=== PATIENT | female | born 1950 | race Caucasian/White ===

== ENCOUNTER 2021-01-02 09:39 | Outpatient (REF) | payer MEDICARE, OTHER, SELFPAY | END 2021-01-02 09:40 | disposition home or self-care (01) | LOC: HO.BBR 09:39 | PROVIDERS: Visit Provider Nurse Practitioner Family | DX: Z13.89 Encounter for screening for other disorder (principal) ==

== ENCOUNTER 2021-02-04 10:15 | Outpatient (REF) | payer MEDICARE, SELFPAY | END 2021-02-04 10:16 | disposition home or self-care (01) | LOC: HO.BBR 10:15 | PROVIDERS: PCP Family Medicine; Visit Provider Nurse Practitioner Family | DX: Z13.89 Encounter for screening for other disorder (principal) ==

== ENCOUNTER 2021-08-05 10:01 | Outpatient (REF) | payer MEDICARE, SELFPAY | END 2021-08-05 10:02 | disposition home or self-care (01) | LOC: HO.BBR 10:01 | PROVIDERS: Visit Provider Physician Assistant Medical | DX: Z13.89 Encounter for screening for other disorder (principal) ==

== ENCOUNTER 2021-08-21 11:03 | Outpatient (REF) | payer MEDICARE, SELFPAY | END 2021-08-21 11:04 | disposition home or self-care (01) | LOC: HO.BBR 11:03 | PROVIDERS: Visit Provider Physician Assistant Medical | DX: Z13.89 Encounter for screening for other disorder (principal) ==

== ENCOUNTER 2021-09-19 13:45 | Outpatient (REF) | payer MEDICARE, SELFPAY | END 2021-09-19 13:46 | disposition home or self-care (01) | LOC: HO.BBR 13:45 | PROVIDERS: Visit Provider Physician Assistant Medical | DX: Z13.89 Encounter for screening for other disorder (principal) ==

== ENCOUNTER 2021-10-29 10:53 | Outpatient (REF) | payer MEDICARE, SELFPAY | END 2021-10-29 10:54 | disposition home or self-care (01) | LOC: HO.BBR 10:53 | PROVIDERS: Visit Provider Physician Assistant Medical | DX: Z13.89 Encounter for screening for other disorder (principal) ==

== ENCOUNTER 2021-12-03 11:07 | Outpatient (REF) | payer MEDICARE, SELFPAY | END 2021-12-03 11:08 | disposition home or self-care (01) | LOC: HO.BBR 11:07 | PROVIDERS: Visit Provider Physician Assistant Medical | DX: Z13.89 Encounter for screening for other disorder (principal) ==

== ENCOUNTER 2022-03-26 13:06 | Outpatient (REF) | payer MEDICARE, SELFPAY | END 2022-03-26 13:07 | disposition home or self-care (01) | LOC: HO.BBR 13:06 | PROVIDERS: Visit Provider Physician Assistant Medical | DX: Z13.89 Encounter for screening for other disorder (principal) ==

== ENCOUNTER 2022-04-29 12:49 | Outpatient (REF) | payer MEDICARE, SELFPAY | END 2022-04-29 12:50 | disposition home or self-care (01) | LOC: HO.BBR 12:49 | PROVIDERS: Visit Provider Physician Assistant Medical | DX: Z13.89 Encounter for screening for other disorder (principal) ==

== ENCOUNTER 2022-05-29 11:00 | Outpatient (REF) | payer MEDICARE, SELFPAY | END 2022-05-29 11:01 | disposition home or self-care (01) | LOC: HO.BBR 11:00 | PROVIDERS: Visit Provider Physician Assistant Medical | DX: Z13.89 Encounter for screening for other disorder (principal) ==

== ENCOUNTER 2022-10-30 11:48 | Outpatient (REF) | payer MEDICARE, SELFPAY | END 2022-10-30 11:49 | disposition home or self-care (01) | LOC: HO.BBR 11:48 | PROVIDERS: Visit Provider Physician Assistant Medical | DX: Z13.89 Encounter for screening for other disorder (principal) ==

== ENCOUNTER 2022-12-04 11:12 | Outpatient (REF) | payer MEDICARE, SELFPAY | END 2022-12-04 11:13 | disposition home or self-care (01) | LOC: HO.BBR 11:12 | PROVIDERS: Visit Provider Nurse Practitioner Family | DX: Z13.89 Encounter for screening for other disorder (principal) ==

== ENCOUNTER 2023-01-08 11:00 | Outpatient (REF) | payer MEDICARE, OTHER, SELFPAY | END 2023-01-08 11:01 | disposition home or self-care (01) | LOC: HO.BBR 11:00 | PROVIDERS: Visit Provider Nurse Practitioner Family | DX: Z13.89 Encounter for screening for other disorder (principal) ==

== ENCOUNTER 2023-04-22 11:02 | Outpatient (REF) | payer MEDICARE, OTHER, SELFPAY | END 2023-04-22 11:03 | disposition home or self-care (01) | LOC: HO.BBR 11:02 | PROVIDERS: Visit Provider Nurse Practitioner Family | DX: Z13.89 Encounter for screening for other disorder (principal) ==

== ENCOUNTER 2023-06-09 10:08 | Outpatient (REF) | payer MEDICARE, OTHER, SELFPAY | END 2023-06-09 10:09 | disposition home or self-care (01) | LOC: HO.BBR 10:08 | PROVIDERS: PCP Family Medicine; Visit Provider Nurse Practitioner Family | DX: Z13.89 Encounter for screening for other disorder (principal) ==

== ENCOUNTER 2023-07-17 11:00 | Outpatient (REF) | payer MEDICARE, OTHER, SELFPAY | END 2023-07-17 11:01 | disposition home or self-care (01) | LOC: HO.BBR 11:00 | PROVIDERS: PCP Family Medicine; Visit Provider Nurse Practitioner Family | DX: Z13.89 Encounter for screening for other disorder (principal) ==

== ENCOUNTER 2024-03-29 12:14 | Outpatient (REF) | payer MEDICARE, OTHER, SELFPAY | END 2024-03-29 12:15 | disposition home or self-care (01) | LOC: HO.BBR 12:14 | PROVIDERS: PCP Nurse Practitioner Family; Visit Provider Nurse Practitioner Family | DX: Z13.89 Encounter for screening for other disorder (principal) ==

== ENCOUNTER 2024-04-26 12:03 | Outpatient (REF) | payer MEDICARE, OTHER, SELFPAY | END 2024-04-26 12:04 | disposition home or self-care (01) | LOC: HO.BBR 12:03 | PROVIDERS: PCP Nurse Practitioner Family; Visit Provider Nurse Practitioner Family | DX: Z13.89 Encounter for screening for other disorder (principal) ==

== ENCOUNTER 2024-05-24 12:31 | Outpatient (REF) | payer MEDICARE, OTHER, SELFPAY | END 2024-05-24 12:32 | disposition home or self-care (01) | LOC: HO.BBR 12:31 | PROVIDERS: PCP Nurse Practitioner Family; Visit Provider Nurse Practitioner Family | DX: Z13.89 Encounter for screening for other disorder (principal) ==

== ENCOUNTER 2024-09-01 10:54 | Outpatient (RCR) | payer MEDICARE, OTHER, SELFPAY | END 2024-09-01 12:00 | disposition home or self-care (01) | LOC: HO.PT 10:54 | PROVIDERS: PCP Nurse Practitioner Family; Visit Provider Nurse Practitioner Family | DX: N39.46 Mixed incontinence (principal); M99.05 Segmental and somatic dysfunction of pelvic region | CPT/HCPCS: 97112; 97140; 97161 ==

== ENCOUNTER 2024-09-20 14:05 | Outpatient (REF) | payer MEDICARE, OTHER, SELFPAY | END 2024-09-20 14:06 | disposition home or self-care (01) | LOC: HO.BBR 14:05 | PROVIDERS: PCP Nurse Practitioner Family; Visit Provider Nurse Practitioner Family | DX: Z13.89 Encounter for screening for other disorder (principal) ==

== ENCOUNTER 2024-11-16 13:07 | Outpatient (REF) | payer MEDICARE, OTHER, SELFPAY | END 2024-11-16 13:08 | disposition home or self-care (01) | LOC: HO.BBR 13:07 | PROVIDERS: PCP Nurse Practitioner Family; Visit Provider Nurse Practitioner Family | DX: Z13.89 Encounter for screening for other disorder (principal) ==

== ENCOUNTER 2024-12-21 10:03 | Outpatient (REF) | payer MEDICARE, OTHER, SELFPAY | END 2024-12-21 10:04 | disposition home or self-care (01) | LOC: HO.BBR 10:03 | PROVIDERS: PCP Nurse Practitioner Family; Visit Provider Nurse Practitioner Family | DX: Z13.89 Encounter for screening for other disorder (principal) ==

== ENCOUNTER 2025-04-26 13:56 | Outpatient (REF) | payer MEDICARE, OTHER, SELFPAY ==
--- OUTSIDE RECORDS SUMMARY | 2025-04-26 17:54 | XMS_ITS | Encounter Summary ---
Author Organization [facility] Address [address] [facility] [address] [place] [address] Phone Care Team Providers Care Construction Consultant Name Role Phone Hugo Titus Ha DO Unavailable Noelle Alvarado WAX PUMPER Unavailable Joelle Wilkins CARPENTER Unavailable [phone] Noelle Alvarado WAX PUMPER Primary Care Provider [phone] Kathia Quesada PA-C Unavailable Jose Cifuentes MD Unavailable SahKem carvalho DO Unavailable Paulette Fuchs DO Unavailable Hugo Titus Ha DO Unavailable oSha Louie MD Unavailable SahKem carvalho DO Unavailable Clemente Brown MD Unavailable Jaylyn Chavira CNP Primary Care Provider Kem Amaya DO Unavailable Jaylyn Chavira CNP Unavailable Encounter Details Date Type Department Care Team (Late st Contact Info) Description 08/16/2021 Procedure Pass [facility] Endoscopy Admitting Dept Virtual Department [address] [place], [place] [id number] Social History Tobacco Use Types Packs/Day Years Used Date Smoking Tobacco: Never Smokeless Tobacco: Never Comments: smoked - ma rried for 30 yrs Alcohol Use Standard Drinks/Week Comments No 0 (1 standard drink = 0.6 oz pur e alcohol) Comments No Sex and Gender Information Value Date Recorded Sex Assigned at Female 10/04/2017 7:23 PM EDT Legal Sex Female 10:02 PM EDT Gender Identity Female 10/04/2017 7:23 PM EDT Sexual Orientation Straight 10/04/2017 7: 23 PM EDT documented as of this encounter Plan of Treatment Upcoming Encounters Date Type Department Care Team (Late st Contact Info) Description 10/03/2024 Procedure Pass [address] [address] 09/11/2025 12:30 PM EDT Office Visit [facility] [address] [address] Jaylyn Chavira, LYUDMILA [address] [address] 09/15/2025 10:00 AM EDT Office Visit [facility] at [address] [address] Titus Arias DO [address] [place] [address] [email or web address] 09/29/2025 8:30 AM EDT Appointment [address] [address] Jaylyn Chavira, LYUDMILA [address] [address] documented as of this encounter Visit Diagnoses Not on filedocumented in this encounter Additional Health Concerns Infection Onset Date Last Indicated Resolved Time CoV-Risk 11/05/2021 11/05/2021 11/16/2021 1:22 AM EDT CoV-Risk 06/04/2022 06/04/2022 06/15/2022 1:22 AM EST CoV-Risk 10/14/2024 10/14/2024 10/25/2024 1:23 AM EDT Assessment Noted Time PHQ-2 Depression Total Score: 0 12/30/19 19 1:35 PM EDT documented as of this encounter Care Teams Construction Consultant Relationship Specialty Start Date End Date Noelle Alvarado CNP [address] [address] [email or web address] PCP - General Family Medicine 11/21/20 07/08/23 Jaylyn Chavira CNP [address] [place] [address], [address] [place] [address] PCP - General Nurse Practitioner 07/09/23 Titus Arias DO [address] [place] [id number] [email or web address] Primary Oncologist Hematology and Oncology 08/28/17 Noelle Alvarado CNP [address] [address] Family Medicine 01/10/19 Joelle Wilkins CARPENTER [address] [place] [address] [email or web address] Nurse Practitioner Medical Oncology 11/12/20 Kathia Quesada PA-C [address] [place] [address] Physician Personal Care Aide Hematology 02/14/21 Jose Cifuentes MD [address] [place] [address] [address] [place] [phone] [email or web address] Insurance Assigned Provider 02/02/20 01/04/22 Kem Amaya DO [address] [place] [address], [address] [place] [address] [email or web address] Insurance Assigned Provider 01/04/22 03/08/22 Paulette Fuchs DO [address] [place] [address], [address] [place] [address] [email or web address] Insurance Assigned Provider 03/08/22 07/05/22 Titus Arias DO [address] [place] [address] [email or web address] Primary Oncologist Hematology and Oncology 06/02/22 Soha Louie MD [address] [place] [address], [address] [place] [address] [email or web address] Insurance Assigned Provider 07/05/22 11/01/22 Kem Amaya DO [address] [place] [address], [address] [place] [address] [email or web address] Insurance Assigned Provider 11/01/22 05/09/23 Clemente Brown MD [address] [place] [address], [address] [place] [address] [email or web address] Insurance Assigned Provider 05/09/23 10/03/23 Kem Amaya DO [address] [facility], [address] [place] [address] [email or web address] Insurance Assigned Provider 10/03/23 10/02/24 Jaylyn Chavira CNP [address] [facility], [address] [place] [address] [email or web address] Insurance Assigned Provider 10/02/24 documented as of this encounter Additional Source Comments The information contained in this document represents components of the legal health record. It is not the complete legal health record.[facility]
--- OUTSIDE RECORDS SUMMARY | 2025-04-26 17:54 | XMS_ITS | Clinical Summary ---
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 Name Role Phone Noelle Alvarado MOLD WORKER Unavailable Joelle Wilkins PLEAT PATTERNMAKER Unavailable [phone] Kathia Quesada PA-C Unavailable Titus Arias DO Unavailable Jaylyn Chavira MOLD WORKER Primary Care Provider Jaylyn Chavira MOLD WORKER Unavailable [phone] Allergies Active Allergy Reactions Criticality Noted Date Comments Cat Dander Sneezing Medium 08/15/2021 Itchy eyes Codeine Anaphylaxis High 01/01/2017 Tolerated morphine during 11/06/2020 admission House Dust Sneezing 08/15/2021 Sulfamethoxazole-Trimeth oprim GI Upset Medium 01/01/2017 Medications FREESTYLE LITE Strp stripsIndications: Type 2 diabetes mellitus without complication, without long-term current use of insulin 1 each by Miscellaneous route as needed. 100 strip 3 07/09/19 24 Active lancing device (AUTO-LANCET MINI) MiscIndications:Ty pe 2 diabetes mellitus without complication, without long-term current use of insulin by Miscellaneous route as needed. [place] device 1 each 07/16/19 24 Active lancets 28 gauge MiscIndications:Ty pe 2 diabetes mellitus without complication, without long-term current use of insulin 1 each by Miscellaneous route as needed. 100 each 2 07/16/19 24 Active lisinopril (PRINIVIL,ZESTRIL) 30 MG tabletIndications: Essential hypertension Take 1 tablet (30 mg total) by mouth daily. 90 tablet 3 08/16/19 25 Active etodolac (LODINE) 400 MG tabletIndications: Right wrist pain Take 1 tablet (400 mg total) by mouth daily. 90 tablet 3 09/28/19 25 Active FLUoxetine (PROZAC) 10 MG capsuleIndications :Major depressive disorder, recurrent, mild TAKE 1 CAPSULE (10 MG TOTAL) BY MOUTH DAILY IN THE MORNING 90 capsule 3 10/22/19 25 Active furosemide (LASIX) 20 MG tabletIndications: Shortness of breath,Edema of both legs Take 1 tablet (20 mg total) by mouth every morning for 7 days. 7 tablet 12/20/19 25 Active atorvastatin (LIPITOR) 40 MG tabletIndications: Hyperlipidemia, unspecified hyperlipidemia type TAKE 1 TABLET BY MOUTH EVERY DAY 90 tablet 3 02/10/20 25 Active Active Problems Patient Care Coordination No te Formatting of this note migh t be different from the original. Height 163.9cm no shoes 06/25/2022 Problem Noted Date Diagnosed Date Class 1 obesity due to exces s calories with serious comorbidity and body mass index (BMI) of 32.0 to 32.9 in adult 02/17/2025 Assessment & Plan (02/21/2025 1:46 PM EDT): Guidance given to try to improve diet and exercise as best she can. Assessment & Plan (02/17/2025 11:51 AM EDT): Congratulations on losing 4 pounds from 201 on 07/07/2024 down to 197 today and keep it off. Continue diligent portion control. Limit concentrated sugars, saturated fats and calories in the diet. Keep well-hydrated. If unable to achieve expected goal consider formal dietary/nutritional support. Numbness and tingling of left leg 12/26/2024 Assessment & Plan (02/21/2025 1:49 PM EDT): See plane acute B/L low back pain. Assessment & Plan (01/24/2025 3:10 PM EDT): Miladis continues to have numbness of the left leg-I reviewed the x-ray of the lumbar spine showing arthritis. I ordered an MRI to further investigate. Gabapentin was not helpful thus I tried Lyrica today. I informed her to call if there are any other issues or concerns. Follow-up in a month. She understands and agrees. Assessment & Plan (12/26/2024 4:11 PM EDT): Miladis presents for ongoing tingling of the left lower leg despite the Lasix that I wrote for last week. I ordered an x-ray of the lumbar spine and advised her to continue with her physical therapy. I started her on gabapentin-to be taken at night and side effects discussed. Follow-up in a month-if this is not better I will consider an MRI of the lumbar spine and referral to spine. She will call if there are any other issues or concerns. She understands and agrees. Edema of both legs 12/19/2024 Assessment & Plan (01/24/2025 3:10 PM EDT): Resolved edema of the lower legs bilaterally. I reviewed her echocardiogram which was normal and reassuring. She was appreciative. Follow-up in a month. She will call if there are any other issues or concerns. She understands and agrees. Assessment & Plan (12/26/2024 4:12 PM EDT): Improved edema of the lower legs bilaterally status post Lasix. BNP was not elevated. Follow-up in a month. She will call if there are any other issues or concerns. She understands and agrees. Assessment & Plan (12/19/2024 3:21 PM EDT): Miladis has lower leg edema: +2 pitting. I ordered labs today to confirm my suspicion-fluid overloaded. I started her on Lasix today 20 mg in the morning for the next 7 mornings. Follow-up in a week. I also ordered an echo. I informed her to call if any other issues or concerns. She understands and agrees. Acute bilateral low back pain with left-sided sc iatica 09/22/2024 Assessment & Plan (02/21/2025 1:49 PM EDT): Miladis has ongoing low back pain- left leg pains. The lyrica was not helpful either. She does not want to restart the gabapentin or prednisone again. She does no want to increase her lyrica. She is taking etodolac as directed. She has not heard back from [facility]- I messaged my nurses to try to have them call her to see her for her back pains and the pain radiating down the left leg. I reviewed her MRI of the lumbar spine from earlier this month. She will call if there are any other issues or concerns. I have maintained a long-term relationship with the patient, overseeing the care of their back pain. This has significantly influenced my decision-making and treatment plans during today's encounter. Assessment & Plan (01/24/2025 3:09 PM EDT): Miladis presents for ongoing left back pain with pain rating down the leg and tingling in the left leg. Gabapentin was not helpful. I reviewed her x-ray of the lumbar spine showing arthritis. I ordered MRI of the lumbar spine to rule out any other issues such as a disc bulge causing issues with her nerves. I wrote for Lyrica-to try this medication as gabapentin was not helpful. Follow-up in a month. She understands and agrees. Assessment & Plan (12/26/2024 4:11 PM EDT): Miladis has ongoing low back pain with pain rating down the left leg. I ordered an x-ray to further investigate this today and I will update her with the results. Follow-up in a month. If this does not improve I will consider an MRI of the lumbar spine and a referral to spine for consult. She will continue with her PT at home. Follow-up as needed-she will call if this gets worse. She understands and agrees. Assessment & Plan (09/22/2024 11:10 AM EDT): New onset low back pain with left sided sciatica. No red flag symptoms. Encouraged to continue with topicals and heat. Can use NSAID PRN sparingly. I have recommended she begin PT and she is agreeable. Encouraged to follow up if symptoms do not improve with this treatment plan. On statin therapy 07/07/2024 Assessment & Plan (07/07/2024 11:04 AM EST): Monitor for muscle tenderness, swelling and weakness Cystocele, midline 03/16/2024 Overview (03/16/2024): With widened introitus and mixed urine incontinence Assessment & Plan (03/16/2024 8:12 AM EDT): Discussed the role that cystocoele can play in bladder sxs; options, pros and cons of pelvic floor PT, pessary and surgery. For now, she prefers to start with pelvic floor pT, I showed her the various types and sizes of pessaries that we carry Right arm pain 01/13/2024 Assessment & Plan (01/13/2024 12:48 PM EDT): Right Arm Muscle Strain: Pain and limited mobility in the right arm, likely due to a muscle strain from lifting heavy objects. No significant swelling or bruising. Pain is not well controlled with Tylenol arthritis. Limited options for additional pain management due to patient's medical history. -Continue rest and avoid heavy lifting. -Apply heat or ice as preferred for symptom relief. -Consider trying Salonpas patches for topical pain relief. -If no improvement or worsening symptoms, consider ultrasound imaging to rule out more significant injury. -Follow-up as needed based on symptom progression. Trochanteric bursitis of right hip 09/30/2023 Assessment & Plan (10/22/2023 10:18 AM EDT): She is working on HEP. She begins PT next month. Encouraged regular exercise. She will continue heat and topicals. Assessment & Plan (09/30/2023 10:35 PM EDT): Joint protection, energy conservation. Gentle, regular exercise routine-examples of exercises with pictures and detailed instructions printed for home use today. Avoid falls, injuries, overuse. Keep body weight in ideal range for her height. She may benefit from topical cream such as Arnica, Biofreeze, Aspercreme versus medicated patches such as salonpas, icy hot patch 2-3 times daily and if necessary at bedtime x 3 weeks. If symptoms do not improve or worsen despite above strategies may need to get local steroid injection Postmenopausal 09/30/2023 Assessment & Plan (09/30/2023 10:37 PM EDT): Fall and fracture prevention strategies. Daily weightbearing exercises. Proper calcium and vitamin D supplementation-continue vitamin D 2000 daily every other day until 02/27/2024. Pain of right hip 09/08/2023 Assessment & Plan (09/08/2023 1:16 PM EDT): No acute injury, acute progression of symptoms makes a bursitis or tendonitis more likely than degenerative changes- will get XR to assess. Recommend nsaids for pain, heat/ice if helpful, she can also try OTC lidocaine topical creams. Gentle rom when pain is more tolerable. We did discuss PT, she will wait to decide until after XR. Frequent urination 05/14/2023 Assessment & Plan (05/14/2023 12:08 PM EST): Miladis continues to have frequent urination. I reviewed her most recent urine culture showing E. coli but status post Macrobid no improvement in her symptoms. I wrote for Augmentin earlier in the week but she did not take this yet. I do want her to go for a urine sample today and I will run a test on this and also send this for reflex culture. Lastly-I put a referral into urology today-if this does not improve I want her to see a urologist. She understands and agrees. Follow-up with a new PCP next week. Tremor 05/04/2023 Assessment & Plan (01/21/2024 9:42 PM EDT): She continues with now mild tremor in bilateral hands. Remains worse with intention. She requests referral to neurology at this time. Assessment & Plan (07/13/2023 10:34 AM EST): She continues with tremor in bilateral hands. Remains worse with intention. Moderate tremulousness on exam today. Neuro exam otherwise unremarkable. She continues to decline medication for this. Will continue to monitor. Assessment & Plan (05/20/2023 11:58 AM EST): Patient endorses ongoing tremulousness of bilateral hands for the last 5 weeks, worse with intention. Minimal tremulousness observed on exam. Neuro exam otherwise unremarkable, including rapid hand movements. 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 Did have recent lab work with CBC and CMP which was unremarkable. Will rule out other underlying medical etiologies with a TSH. Did discuss there are medications for suppressing intention tremor but given her symptoms currently have minimal impact, will hold off on beta-nicol at this time. - Follow-up TSH - Follow-up as needed Assessment & Plan (05/04/2023 2:40 PM EST): Miladis presents for shaking-for the past 3 weeks. I reviewed her spot sugars that she has been recording and they are all pretty reassuring. I ordered lab work today and I advised her to get this done and I will update her with the results. I want her to follow-up with a new PCP in 2 weeks. She will call if there are any other issues or concerns or if this gets worse. She understands and agrees. Right wrist pain 12/02/2022 Assessment & Plan (12/02/2022 9:06 AM EDT): Miladis presents for right wrist pain and swelling. I suspect either arthritis, tendinitis or gout. I ordered a uric acid, ordered an x-ray and I will update her with these results. I started her on prednisone to help with the inflammation and the pain-20 mg once a day in the mornings for the next 5 mornings. Also put a referral into physical therapy as this will help arthritic pains as well as a tendinitis. I informed her to call if her symptoms get worse or if there are any other issues or concerns. She understands and agrees. Abnormal chest CT 09/01/2022 Assessment & Plan (09/01/2022 4:15 PM EST): Possible opacity in the left posterior sulcus on chest x-ray in 11/2020. Otherwise, there was significantly improved/essentially resolved bilateral infiltrates following COVID-19 infection in 09/2020. Interval chest x-ray in 05/2022 chest x-ray with apparent radiographic resolution. More recently, CT chest from 07/2022 with mild right lower lobe bronchiectasis and minimal scaring, likely representing post-infectious/inflammatory changes. No additional chest imaging is indicated for this. Pain of scalp 03/14/2022 Assessment & Plan (05/14/2022 10:57 AM EST): There is no rash on her scalp or forehead today. I am not sure what is causing the intermittent tenderness on her forehead. There are no masses in the area. She will monitor for rash or swelling Assessment & Plan (03/14/2022 10:23 AM EDT): Miladis presents for pain of her scalp-left side-V1 trigeminal nerve region. I will rule out Lyme with a Lyme check today but I started her on acyclovir to treat for what I believe is the beginning of shingles. She has had her 2 vaccines thus the reason there is no rash and this may be very mild event however I do feel comfortable giving her the antiviral and I gave her guidance regarding this medication. She will call if things get worse or if there are any other issues or concerns. She understands and agrees. Mixed stress and urge urinary incontinence 12/12 Overview (03/16/2024): with moderate cystocoele; also with spontaneous leakage, esdras when going from sitting to standing Assessment & Plan (03/16/2024 8:16 AM EDT): Discussed that bladder relaxants would not likely help, as she does not have sig frequency, and this might increase urinary retention Recommend 1-2 days of voiding diary with record of fluid intake also Advised her that holding in urine after an appropriate time interval of a few hours is not helpful in strengthening the bladder, but is useful for person who is voiding small amounts every 30 minutes, for example Urodynamics can help in assessing bladder capacity and function Assessment & Plan (01/21/2024 9:44 PM EDT): She is experiencing worsening urinary incontinence. Discussed therapy and treatment options. Referral placed referral to pelvic floor physical therapy. She would like to see [facility] and referral placed today. Assessment & Plan (12/12/2021 10:53 AM EDT): She was unable to give a urine sample in the office. Collection supplies were sent home with her. She will drop off a urine at the lab. I did print out information for her on bladder retraining and we briefly discussed pelvic floor physical therapy. Would also consider mirabegron. Posterior vitreous detachment of right eye 09/05 Osteoarthritis of both knees 09/02/2021 Assessment & Plan (07/07/2024 10:50 AM EST): Joint protection, energy conservation. Gentle, regular exercise routine. Avoid falls, injuries, overuse. Keep body weight in ideal range for her height. She may benefit from topical cream such as Arnica, Biofreeze, Aspercreme versus medicated patches such as salonpas, icy hot patch 2-3 times daily and if necessary at bedtime x 3 weeks. Assessment & Plan (09/30/2023 1:44 PM EDT): Joint protection, energy conservation. Gentle, regular exercise routine. Avoid falls, injuries, overuse. Keep body weight in ideal range for her height. She may benefit from topical cream such as Arnica, Biofreeze, Aspercreme versus medicated patches such as salonpas, icy hot patch 2-3 times daily and if necessary at bedtime x 3 weeks. Assessment & Plan (07/10/2023 10:53 AM EST): S/p right knee replacement 12/[address] Barry. Assessment & Plan (07/13/2022 6:03 PM EST): Joint protection, energy conservation. Gentle, regular exercise routine. Avoid falls, injuries, overuse. Keep body weight in ideal range for her height. She may benefit from topical cream such as Arnica, Biofreeze, Aspercreme versus medicated patches such as salonpas, icy hot patch 2-3 times daily and if necessary at bedtime x 3 weeks. Assessment & Plan (05/14/2022 10:56 AM EST): She has not done PT for this so she was referred. I recommend she stop using the etodolac daily. She can use it on occasion for bad days. Otherwise I would like her to use Voltaren gel. She is also interested in trying CBD topical which is fine. If symptoms worsen consider referral to orthopedics or back to rheumatology for steroid injection Assessment & Plan (01/02/2022 9:17 AM EDT): Gentle, regular quadricep strengthening exercises after warm pack or warm shower. Avoid stair climbing, squatting, kneeling, heavy lifting and sudden turns. Well fitting, supportive shoes. Work diligently on reducing her body weight as close as possible to ideal range for her height. Apply topical products such as Arnica, Biofreeze, Voltaren, Aspercreme versus medicated patches such as Salonpas or IcyHot patch 2-3 times daily to most painful region and if needed at bedtime. If not able to improve despite above measures may need to consider formal PT and local steroid injection. Assessment & Plan (09/07/2021 8:25 PM EST): Gentle, regular quadricep strengthening exercises after warm pack or warm shower. Avoid stair climbing, squatting, kneeling, heavy lifting and sudden turns. Well fitting, supportive shoes. Work diligently on reducing her body weight as close as possible to ideal range for her height. Apply topical products such as Arnica, Biofreeze, Voltaren, Aspercreme versus medicated patches such as Salonpas or IcyHot patch 2-3 times daily to most painful region and if needed at bedtime. If not able to improve despite above measures may need to consider formal PT and local steroid injection. retirement current use of non -steroidal anti-inflammatories (NSAID) 09/02/2021 Assessment & Plan (02/17/2025 11:50 AM EDT): Take the lowest dose, with least frequency, for shortest time. Remember to take it always with food. Favor topical over oral preparations. Assessment & Plan (07/11/2022 10:05 AM EST): Take the lowest dose, with least frequency, for shortest time. Remember to take it always with food. Favor topical over oral preparations. Assessment & Plan (01/02/2022 9:18 AM EDT): Take the lowest dose, with least frequency, for shortest time. Remember to take it always with food. Favor topical over oral preparations. Assessment & Plan (09/07/2021 8:27 PM EST): Take the lowest dose, with least frequency, for shortest time. Remember to take it always with food. Favor topical over oral preparations. Calculus of gallbladder with out cholecystitis without obstruction 09/26/2020 Overview (09/26/2020): Asymptomatic, chronic Major depressive disorder, recurrent, mild 07/05 Assessment & Plan (09/22/2024 11:06 AM EDT): Stable, well managed on fluoxetine 10mg, denies side effects. Reports feeling really well at this time. Denies SI/HI. Will continue this medication. Assessment & Plan (03/24/2024 12:09 PM EDT): Stable, well managed on fluoxetine 10mg, denies side effects. Reports feeling really well at this time. Denies SI/HI. Will continue this medication. Assessment & Plan (01/21/2024 9:41 PM EDT): Stable, well managed on fluoxetine 10mg, denies side effects. Reports feeling really well at this time. Denies SI/HI. Will continue this medication. Assessment & Plan (10/22/2023 10:17 AM EDT): Stable, well managed on fluoxetine 10mg, denies side effects. Reports feeling really well at this time. Denies SI/HI. Will continue this medication. Assessment & Plan (07/10/2023 11:05 AM EST): Stable, managed on fluoxetine 10mg, denies side effects. Reports feeling this is well managed at this time. Denies SI/HI. Will continue this medication. Assessment & Plan (08/07/2022 11:46 AM EST): Stable. Fluoxetine refill sent Assessment & Plan (12/12/2021 10:31 AM EDT): Continue fluoxetine Assessment & Plan (06/13/2021 9:26 AM EST): Doing well. Continue prozac Assessment & Plan (01/09/2021 10:21 AM EDT): Continue prozac Assessment & Plan (01/31/2020 1:26 PM EDT): Continue Prozac 20 mg. She is encouraged to call me if she wishes to increase dose that she still has considerable depression symptoms Assessment & Plan (01/03/2020 9:07 AM EDT): Encouraged her to start therapy. Increase prozac to 20 mg. Possible side effects reviewed. FU telemed 4 weeks Spondylosis of lumbar region without myelopathy or radiculopathy 10/27/2018 Assessment & Plan (02/17/2025 11:10 AM EDT): Carefully continue gentle, regular core muscle strengthening exercises preceded by warm pack or warm shower. Avoid falls, injuries, overuse, bending, stooping, heavy lifting and sudden turns. Work on bringing her body weight as close as possible to ideal range for her height. To decrease frequency of etodolac try to use topical products such as Arnica, Biofreeze, Aspercreme, Voltaren versus medicated patches such as Salonpas or IcyHot patch. Assessment & Plan (07/07/2024 10:50 AM EST): Carefully continue gentle, regular core muscle strengthening exercises preceded by warm pack or warm shower. Avoid falls, injuries, overuse, bending, stooping, heavy lifting and sudden turns. Work on bringing her body weight as close as possible to ideal range for her height. To decrease frequency of etodolac try to use topical products such as Arnica, Biofreeze, Aspercreme, Voltaren versus medicated patches such as Salonpas or IcyHot patch. Assessment & Plan (09/30/2023 1:44 PM EDT): Carefully continue gentle, regular core muscle strengthening exercises preceded by warm pack or warm shower. Avoid falls, injuries, overuse, bending, stooping, heavy lifting and sudden turns. Work on bringing her body weight as close as possible to ideal range for her height. To decrease frequency of etodolac try to use topical products such as Arnica, Biofreeze, Aspercreme, Voltaren versus medicated patches such as Salonpas or IcyHot patch. Assessment & Plan (07/11/2022 10:06 AM EST): Carefully continue gentle, regular core muscle strengthening exercises preceded by warm pack or warm shower. Avoid falls, injuries, overuse, bending, stooping, heavy lifting and sudden turns. Work on bringing her body weight as close as possible to ideal range for her height. To decrease frequency of etodolac try to use topical products such as Arnica, Biofreeze, Aspercreme, Voltaren versus medicated patches such as Salonpas or IcyHot patch. Assessment & Plan (01/02/2022 9:17 AM EDT): Carefully continue gentle, regular core muscle strengthening exercises preceded by warm pack or warm shower. Avoid falls, injuries, overuse, bending, stooping, heavy lifting and sudden turns. Work on bringing her body weight as close as possible to ideal range for her height. To decrease frequency of etodolac try to use topical products such as Arnica, Biofreeze, Aspercreme, Voltaren versus medicated patches such as Salonpas or IcyHot patch. Assessment & Plan (09/07/2021 8:23 PM EST): Carefully continue gentle, regular core muscle strengthening exercises preceded by warm pack or warm shower. Avoid falls, injuries, overuse, bending, stooping, heavy lifting and sudden turns. Work on bringing her body weight as close as possible to ideal range for her height. To decrease frequency of etodolac try to use topical products such as Arnica, Biofreeze, Aspercreme, Voltaren versus medicated patches such as Salonpas or IcyHot patch. Assessment & Plan (03/06/2021 10:27 AM EDT): Continue home exercise program to stretch and strengthen the paralumbar musculature and core. Continue etodolac twice daily as needed. Risks and benefits discussed and lab work was reviewed. Hospital Outpatient Visit on 03/02/2021 Component Date Value Ref Range Status COLOR 03/02/2021 Yellow Yellow Final CLARITY 03/02/2021 Clear Final GLUCOSE 03/02/2021 Negative Negative Final BILI 03/02/2021 2+* Negative Final KETONES 03/02/2021 Negative Negative Final SPECIFIC GRAVITY 03/02/2021 1.020 1.005 - 1.030 Final BLOOD 03/02/2021 Negative Negative Final PH 03/02/2021 6.0 5.0 - 8.0 Final Protein-UA 03/02/2021 Negative Negative Final NITRITE 03/02/2021 Negative Negative Final Leukocyte esterase, ur 03/02/2021 1+* Negative Final WBC 03/02/2021 21-49* NONE SEEN /hpf Final RBC 03/02/2021 0-2* NONE SEEN /hpf Final URINE EPITHELIAL 03/02/2021 21-49* NONE SEEN Final MUCUS 03/02/2021 1+* NONE SEEN /hpf Final BACTERIA 03/02/2021 1+* NONE SEEN /hpf Final Special Requests 03/02/2021 Final Value:None Reflexed from [id number] Urine Culture 03/02/2021 10,000 to 100,000 colony forming units per mL MIXED JILLIAN (3 OR MORE COLONY TYPES) Culture indicates contamination. Please resubmit if necessary.* Final Hospital Outpatient Visit on 02/27/2021 Component Date Value Ref Range Status Special Requests 02/27/2021 None Final Urine Culture 02/27/2021 >100,000 colony forming units per mL MIXED JILLIAN (3 OR MORE COLONY TYPES) Culture indicates contamination. Please resubmit if necessary.* Final Hospital Outpatient Visit on 02/12/2021 Component Date Value Ref Range Status IRON 02/12/2021 100 30 - 160 ug/dL Final IRON BINDING CAPACITY 02/12/2021 384 228 - 428 ug/dL Final TRANSFERRIN SATURAT. 02/12/2021 26 15 - 50 % Final FERRITIN 02/12/2021 75 13 - 150 ug/L Final WBC 02/12/2021 5.77 4.00 - 11.00 K/uL Final RBC 02/12/2021 4.87 3.72 - 5.30 M/uL Final HGB 02/12/2021 14.6 11.4 - 15.9 g/dL Final HCT 02/12/2021 43.5 34.2 - 46.8 % Final PLT 02/12/2021 332 140 - 430 K/uL Final MCV 02/12/2021 89.3 78.0 - 97.0 fL Final MCH 02/12/2021 30.0 25.0 - 33.0 pg Final MCHC 02/12/2021 33.6 32.0 - 36.0 g/dL Final RDW 02/12/2021 12.3 11.0 - 16.0 % Final MPV 02/12/2021 10.4 8.4 - 12.8 fl Final NRBC 02/12/2021 0.00 0 /100 WBCs Final ABSOLUTE NRBC 02/12/2021 0.00 0 K/uL Final DIFF METHOD 02/12/2021 Auto Final NEUTS 02/12/2021 50.6 43.0 - 75.0 % Final LYMPHS 02/12/2021 36.7 18.2 - 47.4 % Final MONOS 02/12/2021 8.3 4.00 - 11.00 % Final EOS 02/12/2021 2.8 0.0 - 8.0 % Final BASOS 02/12/2021 1.4 0.0 - 2.0 % Final Granulocytes, immature (%) 02/12/2021 0.2 0.0 - 0.9 % Final ABSOLUTE NEUTS 02/12/2021 2.92 1.80 - 7.70 K/uL Final ABSOLUTE LYMPHS 02/12/2021 2.12 1.00 - 3.10 K/uL Final ABSOLUTE MONOS 02/12/2021 0.48 0.20 - 0.80 K/uL Final ABSOLUTE EOS 02/12/2021 0.16 0.00 - 0.80 K/uL Final ABSOLUTE BASOS 02/12/2021 0.08 0.00 - 0.09 K/uL Final Granulocytes, immature 02/12/2021 0.01 0.00 - 0.05 K/uL Final SODIUM 02/12/2021 140 133 - 146 mmol/L Final POTASSIUM 02/12/2021 4.6 3.3 - 5.1 mmol/L Final CHLORIDE 02/12/2021 106 96 - 108 mmol/L Final CO2 02/12/2021 21 21 - 35 mmol/L Final BUN 02/12/2021 18 6 - 19 mg/dL Final CREATININE 02/12/2021 0.70 0.5 - 1.5 mg/dL Final GLUCOSE 02/12/2021 97 70 - 99 mg/dL Final ALBUMIN 02/12/2021 4.3 3.9 - 4.8 g/dL Final TOTAL PROTEIN 02/12/2021 7.9 6.5 - 8.0 g/dL Final CALCIUM 02/12/2021 10.0 8.4 - 10.3 mg/dL Final ALKALINE PHOSPHATASE 02/12/2021 70 39 - 117 U/L Final TOTAL BILIRUBIN 02/12/2021 0.5 0.0 - 1.2 mg/dL Final AST 02/12/2021 56* 0 - 37 U/L Final ALT 02/12/2021 37 0 - 40 U/L Final GLOBULIN 02/12/2021 3.6 1 - 4.8 g/dL Final EGFR 02/12/2021 87 >59 mL/min/1.73m2 Final Estimated glomerular filtration rate calculated using the CKD-EPI equation. ANION GAP 02/12/2021 18 10 - 20 mmol/L Final Office Visit on 01/28/2021 Component Date Value Ref Range Status FEV1 02/26/2021 2.27 liters Final FVC 02/26/2021 2.88 liters Final FEV1/FVC 02/26/2021 79 % Final TLC 02/26/2021 4.20 liters Final DLCO 02/26/2021 16.5 ml/mmHg sec Final Distance Walked 02/26/2021 335 meter Final Office Visit on 01/09/2021 Component Date Value Ref Range Status Glucose 01/09/2021 Negative Negative Final Bilirubin 01/09/2021 2+* Negative Final Ketone 01/09/2021 Negative Negative Final Specific [place] 01/09/2021 1.015 1.001 - 1.030 Final Blood 01/09/2021 Trace-Intact* Negative Final pH 01/09/2021 5.5 5.0 - 8.0 Final Protein 01/09/2021 Negative Negative Final Urobilinogen 01/09/2021 0.2 mg/dL 0.2 mg/dL Final Nitrite 01/09/2021 Negative Negative Final Leukocytes 01/09/2021 1+* Negative Final Color 01/09/2021 Yellow Final Clarity 01/09/2021 Cloudy Final Special Requests 01/09/2021 None Final Urine Culture 01/09/2021 10,000 to 100,000 colony forming units per mL CITROBACTER FREUNDII* Final Hospital Outpatient Visit on 12/11/2020 Component Date Value Ref Range Status FERRITIN 12/11/2020 177* 13 - 150 ug/L Final IRON 12/11/2020 134 30 - 160 ug/dL Final IRON BINDING CAPACITY 12/11/2020 341 228 - 428 ug/dL Final TRANSFERRIN SATURAT. 12/11/2020 39 15 - 50 % Final SODIUM 12/11/2020 138 133 - 146 mmol/L Final POTASSIUM 12/11/2020 4.3 3.3 - 5.1 mmol/L Final CHLORIDE 12/11/2020 107 96 - 108 mmol/L Final CO2 12/11/2020 20* 21 - 35 mmol/L Final BUN 12/11/2020 21* 6 - 19 mg/dL Final CREATININE 12/11/2020 0.70 0.5 - 1.5 mg/dL Final GLUCOSE 12/11/2020 109* 70 - 99 mg/dL Final ALBUMIN 12/11/2020 4.1 3.9 - 4.8 g/dL Final TOTAL PROTEIN 12/11/2020 7.4 6.5 - 8.0 g/dL Final CALCIUM 12/11/2020 9.7 8.4 - 10.3 mg/dL Final ALKALINE PHOSPHATASE 12/11/2020 57 39 - 117 U/L Final TOTAL BILIRUBIN 12/11/2020 0.8 0.0 - 1.2 mg/dL Final AST 12/11/2020 35 0 - 37 U/L Final ALT 12/11/2020 30 0 - 40 U/L Final GLOBULIN 12/11/2020 3.3 1 - 4.8 g/dL Final EGFR 12/11/2020 88 >59 mL/min/1.73m2 Final Estimated glomerular filtration rate calculated using the CKD-EPI equation. ANION GAP 12/11/2020 15 10 - 20 mmol/L Final WBC 12/11/2020 5.11 4.00 - 11.00 K/uL Final RBC 12/11/2020 4.64 3.72 - 5.30 M/uL Final HGB 12/11/2020 14.1 11.4 - 15.9 g/dL Final HCT 12/11/2020 41.1 34.2 - 46.8 % Final PLT 12/11/2020 270 140 - 430 K/uL Final MCV 12/11/2020 88.6 78.0 - 97.0 fL Final MCH 12/11/2020 30.4 25.0 - 33.0 pg Final MCHC 12/11/2020 34.3 32.0 - 36.0 g/dL Final RDW 12/11/2020 13.7 11.0 - 16.0 % Final MPV 12/11/2020 10.2 8.4 - 12.8 fl Final NRBC 12/11/2020 0.00 0 /100 WBCs Final ABSOLUTE NRBC 12/11/2020 0.00 0 K/uL Final DIFF METHOD 12/11/2020 Auto Final NEUTS 12/11/2020 49.1 43.0 - 75.0 % Final LYMPHS 12/11/2020 34.8 18.2 - 47.4 % Final MONOS 12/11/2020 10.4 4.00 - 11.00 % Final EOS 12/11/2020 4.1 0.0 - 8.0 % Final BASOS 12/11/2020 1.4 0.0 - 2.0 % Final Granulocytes, immature (%) 12/11/2020 0.2 0.0 - 0.9 % Final ABSOLUTE NEUTS 12/11/2020 2.51 1.80 - 7.70 K/uL Final ABSOLUTE LYMPHS 12/11/2020 1.78 1.00 - 3.10 K/uL Final ABSOLUTE MONOS 12/11/2020 0.53 0.20 - 0.80 K/uL Final ABSOLUTE EOS 12/11/2020 0.21 0.00 - 0.80 K/uL Final ABSOLUTE BASOS 12/11/2020 0.07 0.00 - 0.09 K/uL Final Granulocytes, immature 12/11/2020 0.01 0.00 - 0.05 K/uL Final Assessment & Plan (07/10/2020 8:48 AM EST): Stable discogenic disease and facet arthropathy without neurogenic claudication or radiculopathy. Walking program, well fitting supportive shoes with good shock absorption, core strengthening, and weight control. Assessment & Plan (05/03/2019 9:03 AM EST): Continues to have daily stiffness but no worse. No evidence of neurogenic claudication or radiculopathy. Core strengthening and stretching were discussed with her. She will go back to these programs as taught to her by physical therapy. She will continue on 400 mg of etodolac twice daily along with other medications unchanged. Tolerating this medication well. Really does her some good. Previous lab work was reviewed and a comprehensive chemistry profile ordered for the end of next month. Hospital Outpatient Visit on 04/04/2019 Component Date Value Ref Range Status URINE MICROALBUMIN 04/04/2019 <1.2 0 - 2.3 mg/dL Final URINE CREATININE 04/04/2019 53 mg/dL Final MICROALB/CRE RATIO 04/04/2019 NOT CALCULATED 0 - 20 mg/g Cre Final due to Microalbumin <1.2 HEMOGLOBIN A1C 04/04/2019 5.8 4.3 - 5.8 % Final HDL 04/04/2019 47 mg/dL Final Comment: Interpretation <40 mg/dL: Low HDL cholesterol (major risk factor for CHD) Greater than or equal to 60 mg/dL: High HDL cholesterol ( negative risk factor for CHD) HDL - cholesterol is affected by a number of factors, e.g. smoking, excerise, hormones, sex and age. CHOLESTEROL 04/04/2019 149 0 - 240 mg/dL Final TRIGLYCERIDES 04/04/2019 140 30 - 160 mg/dL Final LDL 04/04/2019 74 50 - 129 mg/dL Final Comment: LDL levels in terms of risk for coronary heart disease: <100 mg/dL: Optimal 100-129 mg/dL: Near or above optimal 130-159 mg/dL: Borderline high 160-189 mg/dL: High >190 mg/dL: Very High CARDIAC RISK RATIO 04/04/2019 3.2* 3.3 - 4.4 Final Hospital Outpatient Visit on 02/09/2019 Component Date Value Ref Range Status IRON 02/09/2019 137 30 - 160 ug/dL Final IRON BINDING CAPACITY 02/09/2019 326 228 - 428 ug/dL Final TRANSFERRIN SATURAT. 02/09/2019 42 15 - 50 % Final FERRITIN 02/09/2019 60 13 - 150 ug/L Final SODIUM 02/09/2019 137 133 - 146 mmol/L Final POTASSIUM 02/09/2019 4.7 3.3 - 5.1 mmol/L Final CHLORIDE 02/09/2019 103 96 - 108 mmol/L Final CO2 02/09/2019 20* 21 - 35 mmol/L Final BUN 02/09/2019 28* 6 - 19 mg/dL Final CREATININE 02/09/2019 0.70 0.5 - 1.5 mg/dL Final GLUCOSE 02/09/2019 85 70 - 99 mg/dL Final ALBUMIN 02/09/2019 4.2 3.9 - 4.8 g/dL Final TOTAL PROTEIN 02/09/2019 7.6 6.5 - 8.0 g/dL Final CALCIUM 02/09/2019 9.8 8.4 - 10.3 mg/dL Final ALKALINE PHOSPHATASE 02/09/2019 76 39 - 117 U/L Final TOTAL BILIRUBIN 02/09/2019 0.6 0.0 - 1.2 mg/dL Final AST 02/09/2019 20 0 - 37 U/L Final ALT 02/09/2019 17 0 - 40 U/L Final GLOBULIN 02/09/2019 3.4 1 - 4.8 g/dL Final EGFR 02/09/2019 88 >59 mL/min/1.73m2 Final If patient is black, multiply result by 1.159. Estimated glomerular filtration rate calculated using the CKD-EPI equation. ANION GAP 02/09/2019 19 10 - 20 mmol/L Final WBC 02/09/2019 8.33 3.40 - 11.20 K/uL Final RBC 02/09/2019 5.01* 3.80 - 4.80 M/uL Final HGB 02/09/2019 14.8 12.0 - 15.0 g/dL Final HCT 02/09/2019 43.8 36.0 - 46.0 % Final PLT 02/09/2019 325 130 - 400 K/uL Final MCV 02/09/2019 87.4 79.0 - 98.0 fL Final MCH 02/09/2019 29.5 27.0 - 34.8 pg Final MCHC 02/09/2019 33.8 31.5 - 36.0 g/dL Final RDW 02/09/2019 13.2 10.8 - 14.6 % Final MPV 02/09/2019 10.5 9.4 - 12.4 fl Final NRBC 02/09/2019 0.00 0.00 /100 WBCs Final ABSOLUTE NRBC 02/09/2019 0.00 0.00 K/uL Final DIFF METHOD 02/09/2019 Auto Final NEUTS 02/09/2019 63.4 45.30 - 77.70 % Final LYMPHS 02/09/2019 24.0 12.30 - 39.70 % Final MONOS 02/09/2019 8.8 4.10 - 12.80 % Final EOS 02/09/2019 3.1 0 - 7.2 % Final BASOS 02/09/2019 0.6 0 - 2.80 % Final Granulocytes, immature (%) 02/09/2019 0.1 0.0 - 0.9 % Final ABSOLUTE NEUTS 02/09/2019 5.28 1.40 - 7.70 K/uL Final ABSOLUTE LYMPHS 02/09/2019 2.00 0.60 - 3.20 K/uL Final ABSOLUTE MONOS 02/09/2019 0.73* 0.11 - 0.59 K/uL Final ABSOLUTE EOS 02/09/2019 0.26 0.01 - 0.50 K/uL Final ABSOLUTE BASOS 02/09/2019 0.05 0.00 - 0.08 K/uL Final Granulocytes, immature 02/09/2019 0.01 0.00 - 0.05 K/uL Final Assessment & Plan (10/27/2018 9:49 AM EDT): Chronic daily morning stiffness but no nighttime pain, radiculopathy or signs or symptoms of neurogenic claudication. May continue etodolic 400 mg twice daily as needed, core strengthening, local warmth. Appropriate lifting mechanics were demonstrated and discussed. Type 2 diabetes mellitus wit hout complication, without long-term current use of insulin 07/13/2018 Overview (03/13/2021): Diet controlled Assessment & Plan (02/21/2025 1:43 PM EDT): Miladis's next A 1c will be on 03/29/25. She is trying to eat better. 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 Follow-up in a month. She understands and agrees. I have maintained a long-term relationship with the patient, overseeing the care of their DM-II. This has significantly influenced my decision-making and treatment plans during today's encounter. Assessment & Plan (09/22/2024 11:05 AM EDT): HEMOGLOBIN A1C Date Value Ref Range Status 06/03/2024 6.2 (H) 4.3 - 5.8 % Final Encouraged to continue with improved diet and increase exercise.Will continue to monitor. Assessment & Plan (03/24/2024 12:08 PM EDT): HEMOGLOBIN A1C Date Value Ref Range Status 03/10/2024 7.1 (H) 4.3 - 5.8 % Final Encouraged to continue to improve diet and increase exercise. Declines metformin. Will continue to monitor. Assessment & Plan (01/21/2024 9:39 PM EDT): HEMOGLOBIN A1C Date Value Ref Range Status 08/10/2023 6.3 (H) 4.3 - 5.8 % Final Managed with lifestyle modifications at this time. Assessment & Plan (10/22/2023 10:16 AM EDT): Managed with lifestyle modifications at this time. Assessment & Plan (07/10/2023 10:52 AM EST): Continues to follow healthy diet and exercise, was limited due to recent knee replacement but is working on increasing again at this time. Assessment & Plan (05/14/2023 12:02 PM EST): Diet controlled. Last A1c was 6.5. I put a repeat in for 3 months from today- she will continue with a healthy diet and exercises regimen. Assessment & Plan (05/14/2022 10:55 AM EST): Due for A1c. Diet discussed. Assessment & Plan (12/12/2021 10:30 AM EDT): Seems to be stable. Will update A1c Assessment & Plan (09/05/2021 11:59 AM EST): stable Assessment & Plan (03/13/2021 12:46 PM EDT): Diet discussed, exercise discussed. Labs ordered Assessment & Plan (10/23/2020 4:39 AM EDT): Follow daily glucose while ill Not on any home medication thus will not start here/now. Assessment & Plan (09/19/2020 2:22 PM EDT): Labs today Assessment & Plan (05/09/2020 9:06 AM EST): Diet controlled Assessment & Plan (01/31/2020 1:27 PM EDT): Reports feeling motivated to improve diet again. A1c was ordered. Assessment & Plan (10/04/2019 10:06 AM EDT): Will check fructosamine w next labs as A1cs may be falsely low in setting of HH. Assessment & Plan (07/05/2019 10:24 AM EST): Diet controlled. A1c ordered. Assessment & Plan (04/01/2019 9:21 AM EDT): Diet controlled. Labs ordered. Assessment & Plan (09/23/2018 9:27 AM EDT): Has been dietary improvement. Fasting blood sugars are good. A1c next month. Assessment & Plan (08/12/2018 1:37 PM EST): Congratulated on dietary changes Assessment & Plan (07/13/2018 6:45 PM EST): Follow-up labs ordered Gastroesophageal reflux disease without esophagi tis 07/13/2018 Assessment & Plan (02/17/2025 11:26 AM EDT): Avoid late, large, spicy meals. Keep headboard elevated at 45 angle for nighttime. Assessment & Plan (10/22/2023 10:16 AM EDT): Stable, managed with diet. Not using PPI any longer. Will continue to monitor. Assessment & Plan (09/30/2023 1:46 PM EDT): Avoid late, large, spicy meals. Keep headboard elevated at 45 angle for nighttime. Assessment & Plan (07/10/2023 10:54 AM EST): Stable, continues to avoid dietary triggers. Managed on omeprazole 20mg, denies symptoms at this time. Will continue to monitor. Assessment & Plan (07/11/2022 10:05 AM EST): Avoid late, large, spicy meals. Keep headboard elevated at 45 angle for nighttime. Assessment & Plan (07/07/2022 1:10 PM EST): Restart PPI. Discussed dietary triggers Assessment & Plan (07/13/2018 6:45 PM EST): This caused chest pain in February 2018. Omeprazole helped. She is gradually weaning off of it and will use Zantac instead as needed Essential hypertension 10/14/2017 Assessment & Plan (01/24/2025 3:04 PM EDT): Miladis Ramírez has hypertension and she is taking the above medication as directed without any side effects. her blood pressure is within normal limits and stable. she will follow up as directed. Assessment & Plan (09/22/2024 11:04 AM EDT): Stable. Well managed on lisinopril 30mg, denies side effects. Normotensive today. Will continue this medication. Assessment & Plan (03/24/2024 12:06 PM EDT): Stable. Well managed on lisinopril 30mg, denies side effects. Normotensive today. Will continue this medication. Assessment & Plan (01/21/2024 9:39 PM EDT): Stable. Well managed on lisinopril 30mg, denies side effects. Normotensive today. Will continue this medication. Assessment & Plan (10/22/2023 9:53 AM EDT): Stable. Managed on lisinopril 30mg, denies side effects. Normotensive today. Will continue this medication. Assessment & Plan (07/10/2023 10:46 AM EST): Stable. Managed on lisinopril 30mg, denies side effects. Normotensive today. Will continue this medication. Assessment & Plan (08/07/2022 11:47 AM EST): Stable. Lisinopril refill sent Assessment & Plan (07/07/2022 1:13 PM EST): Continue lisinopril 30 mg Assessment & Plan (05/14/2022 10:54 AM EST): Increase lisinopril to 30 mg. Start home monitoring blood pressure and contact me if still running high after a few weeks. Otherwise follow-up in 3 months Assessment & Plan (12/12/2021 10:30 AM EDT): Well-controlled Assessment & Plan (09/05/2021 11:59 AM EST): stable Assessment & Plan (06/13/2021 9:24 AM EST): stable Assessment & Plan (03/13/2021 12:45 PM EDT): Stable Assessment & Plan (01/09/2021 10:20 AM EDT): Umair high this week, but she seems to have a UTI which could cause that, She will continue current dose of lisinopril & check BPs at home after Few days on Antibx for UTI. Csll if still high. Assessment & Plan (01/07/2021 9:02 AM EDT): Blood pressure right arm sitting 160/90 and 3 minutes later 152/88. Discussed follow-up with primary care, sodium restriction, compliance with medication and role of etodolac in blood pressure regulation. Hospital Outpatient Visit on 12/11/2020 Component Date Value Ref Range Status FERRITIN 12/11/2020 177* 13 - 150 ug/L Final IRON 12/11/2020 134 30 - 160 ug/dL Final IRON BINDING CAPACITY 12/11/2020 341 228 - 428 ug/dL Final TRANSFERRIN SATURAT. 12/11/2020 39 15 - 50 % Final SODIUM 12/11/2020 138 133 - 146 mmol/L Final POTASSIUM 12/11/2020 4.3 3.3 - 5.1 mmol/L Final CHLORIDE 12/11/2020 107 96 - 108 mmol/L Final CO2 12/11/2020 20* 21 - 35 mmol/L Final BUN 12/11/2020 21* 6 - 19 mg/dL Final CREATININE 12/11/2020 0.70 0.5 - 1.5 mg/dL Final GLUCOSE 12/11/2020 109* 70 - 99 mg/dL Final ALBUMIN 12/11/2020 4.1 3.9 - 4.8 g/dL Final TOTAL PROTEIN 12/11/2020 7.4 6.5 - 8.0 g/dL Final CALCIUM 12/11/2020 9.7 8.4 - 10.3 mg/dL Final ALKALINE PHOSPHATASE 12/11/2020 57 39 - 117 U/L Final TOTAL BILIRUBIN 12/11/2020 0.8 0.0 - 1.2 mg/dL Final AST 12/11/2020 35 0 - 37 U/L Final ALT 12/11/2020 30 0 - 40 U/L Final GLOBULIN 12/11/2020 3.3 1 - 4.8 g/dL Final EGFR 12/11/2020 88 >59 mL/min/1.73m2 Final Estimated glomerular filtration rate calculated using the CKD-EPI equation. ANION GAP 12/11/2020 15 10 - 20 mmol/L Final WBC 12/11/2020 5.11 4.00 - 11.00 K/uL Final RBC 12/11/2020 4.64 3.72 - 5.30 M/uL Final HGB 12/11/2020 14.1 11.4 - 15.9 g/dL Final HCT 12/11/2020 41.1 34.2 - 46.8 % Final PLT 12/11/2020 270 140 - 430 K/uL Final MCV 12/11/2020 88.6 78.0 - 97.0 fL Final MCH 12/11/2020 30.4 25.0 - 33.0 pg Final MCHC 12/11/2020 34.3 32.0 - 36.0 g/dL Final RDW 12/11/2020 13.7 11.0 - 16.0 % Final MPV 12/11/2020 10.2 8.4 - 12.8 fl Final NRBC 12/11/2020 0.00 0 /100 WBCs Final ABSOLUTE NRBC 12/11/2020 0.00 0 K/uL Final DIFF METHOD 12/11/2020 Auto Final NEUTS 12/11/2020 49.1 43.0 - 75.0 % Final LYMPHS 12/11/2020 34.8 18.2 - 47.4 % Final MONOS 12/11/2020 10.4 4.00 - 11.00 % Final EOS 12/11/2020 4.1 0.0 - 8.0 % Final BASOS 12/11/2020 1.4 0.0 - 2.0 % Final Granulocytes, immature (%) 12/11/2020 0.2 0.0 - 0.9 % Final ABSOLUTE NEUTS 12/11/2020 2.51 1.80 - 7.70 K/uL Final ABSOLUTE LYMPHS 12/11/2020 1.78 1.00 - 3.10 K/uL Final ABSOLUTE MONOS 12/11/2020 0.53 0.20 - 0.80 K/uL Final ABSOLUTE EOS 12/11/2020 0.21 0.00 - 0.80 K/uL Final ABSOLUTE BASOS 12/11/2020 0.07 0.00 - 0.09 K/uL Final Granulocytes, immature 12/11/2020 0.01 0.00 - 0.05 K/uL Final Admission on 11/06/2020, Discharged on 11/09/2020 Component Date Value Ref Range Status WBC 11/06/2020 16.98* 4.00 - 11.00 K/uL Final RBC 11/06/2020 5.09 3.72 - 5.30 M/uL Final HGB 11/06/2020 15.4 11.4 - 15.9 g/dL Final HCT 11/06/2020 44.7 34.2 - 46.8 % Final PLT 11/06/2020 296 140 - 430 K/uL Final MCV 11/06/2020 87.8 78.0 - 97.0 fL Final MCH 11/06/2020 30.3 25.0 - 33.0 pg Final MCHC 11/06/2020 34.5 32.0 - 36.0 g/dL Final RDW 11/06/2020 12.9 11.0 - 16.0 % Final MPV 11/06/2020 9.8 8.4 - 12.8 fl Final NRBC 11/06/2020 0.00 0 /100 WBCs Final ABSOLUTE NRBC 11/06/2020 0.00 0 K/uL Final DIFF METHOD 11/06/2020 Auto Final NEUTS 11/06/2020 82.1* 43.0 - 75.0 % Final LYMPHS 11/06/2020 11.7* 18.2 - 47.4 % Final MONOS 11/06/2020 4.9 4.00 - 11.00 % Final EOS 11/06/2020 0.5 0.0 - 8.0 % Final BASOS 11/06/2020 0.3 0.0 - 2.0 % Final Granulocytes, immature (%) 11/06/2020 0.5 0.0 - 0.9 % Final ABSOLUTE NEUTS 11/06/2020 13.94* 1.80 - 7.70 K/uL Final ABSOLUTE LYMPHS 11/06/2020 1.99 1.00 - 3.10 K/uL Final ABSOLUTE MONOS 11/06/2020 0.83* 0.20 - 0.80 K/uL Final ABSOLUTE EOS 11/06/2020 0.08 0.00 - 0.80 K/uL Final ABSOLUTE BASOS 11/06/2020 0.05 0.00 - 0.09 K/uL Final Granulocytes, immature 11/06/2020 0.09* 0.00 - 0.05 K/uL Final SODIUM 11/06/2020 139 133 - 146 mmol/L Final CHLORIDE 11/06/2020 100 96 - 108 mmol/L Final POTASSIUM 11/06/2020 3.6 3.3 - 5.1 mmol/L Final CO2 11/06/2020 20* 21 - 35 mmol/L Final BUN 11/06/2020 24* 6 - 19 mg/dL Final CREATININE 11/06/2020 1.00 0.5 - 1.5 mg/dL Final GLUCOSE 11/06/2020 129* 70 - 99 mg/dL Final CALCIUM 11/06/2020 10.2 8.4 - 10.3 mg/dL Final EGFR 11/06/2020 57* >59 mL/min/1.73m2 Final Estimated glomerular filtration rate calculated using the CKD-EPI equation. ANION GAP 11/06/2020 23* 10 - 20 mmol/L Final COLOR 11/07/2020 Yellow Yellow Final CLARITY 11/07/2020 Clear Final GLUCOSE 11/07/2020 Negative Negative Final BILI 11/07/2020 2+* Negative Final KETONES 11/07/2020 Negative Negative Final SPECIFIC GRAVITY 11/07/2020 1.015 1.005 - 1.030 Final BLOOD 11/07/2020 Trace* Negative Final PH 11/07/2020 6.0 5.0 - 8.0 Final Protein-UA 11/07/2020 Negative Negative Final NITRITE 11/07/2020 Negative Negative Final Leukocyte esterase, ur 11/07/2020 Trace* Negative Final ALKALINE PHOSPHATASE 11/06/2020 67 39 - 117 U/L Final TOTAL BILIRUBIN 11/06/2020 1.0 0.0 - 1.2 mg/dL Final DIRECT BILIRUBIN 11/06/2020 0.2 0 - 0.3 mg/dL Final Bilirubin (Indirect) 11/06/2020 0.8 0 - 1.5 mg/dL Final AST 11/06/2020 35 0 - 37 U/L Final ALT 11/06/2020 36 0 - 40 U/L Final TOTAL PROTEIN 11/06/2020 8.0 6.5 - 8.0 g/dL Final ALBUMIN 11/06/2020 4.2 3.9 - 4.8 g/dL Final GLOBULIN 11/06/2020 3.8 1 - 4.8 g/dL Final A/G Ratio 11/06/2020 1.11 1.00 - 4.80 RATIO Final LIPASE 11/06/2020 57 16 - 63 U/L Final Ventricular Rate EKG/MIN 11/06/2020 55 BPM Final Atrial Rate 11/06/2020 58 BPM Final QRS Duration 11/06/2020 74 ms Final QT Interval 11/06/2020 440 ms Final QTC Interval 11/06/2020 420 ms Final R Wave Manning 11/06/2020 5 degrees Final T Wave Manning 11/06/2020 9 degrees Final PT 11/06/2020 11.7 10.2 - 12.9 sec Final INR 11/06/2020 1.0 0.9 - 1.1 Final Therapeutic range for oral Vitamin K antagonists: 2.0-3.5 LACTATE 11/06/2020 4.66* 0.50 - 2.20 mmol/L Final Comment: Critical value: Results called to and read back by: Fabian Kirby, ED 2022 Special Requests 11/06/2020 None Final BLOOD CULTURE 11/06/2020 NO GROWTH 5 DAYS Final Special Requests 11/06/2020 None Final BLOOD CULTURE 11/06/2020 NO GROWTH 5 DAYS Final MAGNESIUM 11/06/2020 2.3 1.6 - 2.6 mg/dL Final Troponin T-hs Gen5 11/06/2020 <6 0 - 9 ng/L Final Troponin T-hs Gen5 11/06/2020 <6 0 - 9 ng/L Final Test Ordered 11/06/2020 Rapid COVID has been ordered Final Specimen Source 11/06/2020 NASAL Final SARS-CoV-2 RNA (COVID-19) 11/06/2020 Negative Negative Final Comment: Negative results do not preclude SARS-CoV-2 infection and should not be used as the sole basis for patient management decisions. Negative results must be combined with clinical observations, patient history, and epidemiological information. Testing was performed using the [employer] COVID-19 assay performed on the [employer] NOW Instrument. Fact sheets for this Emergency Use Authorization can be found at the following links: For Healthcare Providers: https://www.For[employer].gov/media/454336/download For Patients: https://www.fda.gov.media/648866/download. LACTATE 11/06/2020 1.05 0.50 - 2.20 mmol/L Final WBC 11/07/2020 5-10* NONE SEEN /hpf Final RBC 11/07/2020 6-10* NONE SEEN /hpf Final URINE EPITHELIAL 11/07/2020 11-20* NONE SEEN Final MUCUS 11/07/2020 NONE SEEN NONE SEEN /hpf Final BACTERIA 11/07/2020 Trace* NONE SEEN /hpf Final CAST 11/07/2020 0-2 Final HYALINE CAST WBC 11/07/2020 10.13 4.00 - 11.00 K/uL Final RBC 11/07/2020 4.38 3.72 - 5.30 M/uL Final HGB 11/07/2020 13.1 11.4 - 15.9 g/dL Final HCT 11/07/2020 39.1 34.2 - 46.8 % Final PLT 11/07/2020 230 140 - 430 K/uL Final MCV 11/07/2020 89.3 78.0 - 97.0 fL Final MCH 11/07/2020 29.9 25.0 - 33.0 pg Final MCHC 11/07/2020 33.5 32.0 - 36.0 g/dL Final RDW 11/07/2020 13.1 11.0 - 16.0 % Final MPV 11/07/2020 10.0 8.4 - 12.8 fl Final NRBC 11/07/2020 0.00 0 /100 WBCs Final ABSOLUTE NRBC 11/07/2020 0.00 0 K/uL Final DIFF METHOD 11/07/2020 Auto Final NEUTS 11/07/2020 78.6* 43.0 - 75.0 % Final LYMPHS 11/07/2020 13.2* 18.2 - 47.4 % Final MONOS 11/07/2020 6.9 4.00 - 11.00 % Final EOS 11/07/2020 0.5 0.0 - 8.0 % Final BASOS 11/07/2020 0.3 0.0 - 2.0 % Final Granulocytes, immature (%) 11/07/2020 0.5 0.0 - 0.9 % Final ABSOLUTE NEUTS 11/07/2020 7.96* 1.80 - 7.70 K/uL Final ABSOLUTE LYMPHS 11/07/2020 1.34 1.00 - 3.10 K/uL Final ABSOLUTE MONOS 11/07/2020 0.70 0.20 - 0.80 K/uL Final ABSOLUTE EOS 11/07/2020 0.05 0.00 - 0.80 K/uL Final ABSOLUTE BASOS 11/07/2020 0.03 0.00 - 0.09 K/uL Final Granulocytes, immature 11/07/2020 0.05 0.00 - 0.05 K/uL Final SODIUM 11/07/2020 137 133 - 146 mmol/L Final CHLORIDE 11/07/2020 103 96 - 108 mmol/L Final POTASSIUM 11/07/2020 4.1 3.3 - 5.1 mmol/L Final CO2 11/07/2020 22 21 - 35 mmol/L Final BUN 11/07/2020 23* 6 - 19 mg/dL Final CREATININE 11/07/2020 0.70 0.5 - 1.5 mg/dL Final GLUCOSE 11/07/2020 132* 70 - 99 mg/dL Final CALCIUM 11/07/2020 8.8 8.4 - 10.3 mg/dL Final EGFR 11/07/2020 88 >59 mL/min/1.73m2 Final Estimated glomerular filtration rate calculated using the CKD-EPI equation. ANION GAP 11/07/2020 16 10 - 20 mmol/L Final LACTATE 11/07/2020 1.85 0.50 - 2.20 mmol/L Final IRON 11/09/2020 70 30 - 160 ug/dL Final IRON BINDING CAPACITY 11/09/2020 228 228 - 428 ug/dL Final TRANSFERRIN SATURAT. 11/09/2020 31 15 - 50 % Final FERRITIN 11/09/2020 293* 13 - 150 ug/L Final Admission on 10/22/2020, Discharged on 10/25/2020 Component Date Value Ref Range Status Test Ordered 10/22/2020 Rapid COVID, Flu has been ordered Final Specimen Source 10/22/2020 NASAL Final SARS-CoV-2 RNA (COVID-19) 10/22/2020 Negative Negative Final Comment: Negative results do not preclude SARS-CoV-2 infection and should not be used as the sole basis for patient management decisions. Negative results must be combined with clinical observations, patient history, and epidemiological information. Testing was performed using the [employer] ID NOW COVID-19 assay performed on the Son[employer] ID NOW Instrument. Fact sheets for this Emergency Use Authorization can be found at the following links: For Healthcare Providers: https://www.fda.gov/media/763843/download For Patients: https://www.fda.gov.media/570361/download. Influenza A, NAAT 10/22/2020 Negative Negative Final Influenza B, NAAT 10/22/2020 Negative Negative Final PT 10/22/2020 12.1 10.2 - 12.9 sec Final INR 10/22/2020 1.1 0.9 - 1.1 Final Therapeutic range for oral Vitamin K antagonists: 2.0-3.5 D-DIMER 10/22/2020 1,257* <500 ng/mL FEU Final In patients with low to moderate pre-test probability scores for VTE (PE or DVT), a D-Dimer cut-off less than 500 ng/mL (FEU) has a negative predictive value (NPV) of 97 to 100%. LDH 10/22/2020 426* 118 - 273 U/L Final Troponin T-hs Gen5 10/22/2020 <6 0 - 9 ng/L Final CREATINE KINASE 10/22/2020 92 21 - 215 U/L Final C REACTIVE PROTEIN 10/22/2020 67.1* 0.0 - 4.0 mg/L Final ESR 10/22/2020 46* 0 - 30 mm/h Final FERRITIN 10/22/2020 929* 13 - 150 ug/L Final WBC 10/22/2020 5.63 4.00 - 11.00 K/uL Final RBC 10/22/2020 4.62 3.72 - 5.30 M/uL Final HGB 10/22/2020 14.0 11.4 - 15.9 g/dL Final HCT 10/22/2020 39.5 34.2 - 46.8 % Final PLT 10/22/2020 183 140 - 430 K/uL Final MCV 10/22/2020 85.5 78.0 - 97.0 fL Final MCH 10/22/2020 30.3 25.0 - 33.0 pg Final MCHC 10/22/2020 35.4 32.0 - 36.0 g/dL Final RDW 10/22/2020 12.5 11.0 - 16.0 % Final MPV 10/22/2020 9.7 8.4 - 12.8 fl Final NRBC 10/22/2020 0.00 0 /100 WBCs Final ABSOLUTE NRBC 10/22/2020 0.00 0 K/uL Final DIFF METHOD 10/22/2020 Auto Final NEUTS 10/22/2020 67.6 43.0 - 75.0 % Final LYMPHS 10/22/2020 24.0 18.2 - 47.4 % Final MONOS 10/22/2020 7.5 4.00 - 11.00 % Final EOS 10/22/2020 0.0 0.0 - 8.0 % Final BASOS 10/22/2020 0.4 0.0 - 2.0 % Final Granulocytes, immature (%) 10/22/2020 0.5 0.0 - 0.9 % Final ABSOLUTE NEUTS 10/22/2020 3.81 1.80 - 7.70 K/uL Final ABSOLUTE LYMPHS 10/22/2020 1.35 1.00 - 3.10 K/uL Final ABSOLUTE MONOS 10/22/2020 0.42 0.20 - 0.80 K/uL Final ABSOLUTE EOS 10/22/2020 0.00 0.00 - 0.80 K/uL Final ABSOLUTE BASOS 10/22/2020 0.02 0.00 - 0.09 K/uL Final Granulocytes, immature 10/22/2020 0.03 0.00 - 0.05 K/uL Final SODIUM 10/22/2020 134 133 - 146 mmol/L Final CHLORIDE 10/22/2020 100 96 - 108 mmol/L Final POTASSIUM 10/22/2020 3.5 3.3 - 5.1 mmol/L Final CO2 10/22/2020 21 21 - 35 mmol/L Final BUN 10/22/2020 14 6 - 19 mg/dL Final CREATININE 10/22/2020 0.70 0.5 - 1.5 mg/dL Final GLUCOSE 10/22/2020 103* 70 - 99 mg/dL Final CALCIUM 10/22/2020 9.0 8.4 - 10.3 mg/dL Final EGFR 10/22/2020 88 >59 mL/min/1.73m2 Final Estimated glomerular filtration rate calculated using the CKD-EPI equation. ANION GAP 10/22/2020 17 10 - 20 mmol/L Final MAGNESIUM 10/22/2020 2.0 1.6 - 2.6 mg/dL Final ALKALINE PHOSPHATASE 10/22/2020 57 39 - 117 U/L Final TOTAL BILIRUBIN 10/22/2020 0.6 0.0 - 1.2 mg/dL Final DIRECT BILIRUBIN 10/22/2020 <0.2 0 - 0.3 mg/dL Final Bilirubin (Indirect) 10/22/2020 NOT CALCULATED 0 - 1.5 mg/dL Final AST 10/22/2020 67* 0 - 37 U/L Final ALT 10/22/2020 44* 0 - 40 U/L Final TOTAL PROTEIN 10/22/2020 7.0 6.5 - 8.0 g/dL Final ALBUMIN 10/22/2020 3.5* 3.9 - 4.8 g/dL Final GLOBULIN 10/22/2020 3.5 1 - 4.8 g/dL Final A/G Ratio 10/22/2020 1.00 1.00 - 4.80 RATIO Final LIPASE 10/22/2020 58 16 - 63 U/L Final LACTATE 10/22/2020 1.50 0.50 - 2.20 mmol/L Final Special Requests 10/22/2020 None Final BLOOD CULTURE 10/22/2020 NO GROWTH 5 DAYS Final Special Requests 10/22/2020 None Final BLOOD CULTURE 10/22/2020 NO GROWTH 5 DAYS Final WBC 10/23/2020 4.57 4.00 - 11.00 K/uL Final RBC 10/23/2020 4.03 3.72 - 5.30 M/uL Final HGB 10/23/2020 11.9 11.4 - 15.9 g/dL Final HCT 10/23/2020 34.2 34.2 - 46.8 % Final PLT 10/23/2020 179 140 - 430 K/uL Final MCV 10/23/2020 84.9 78.0 - 97.0 fL Final MCH 10/23/2020 29.5 25.0 - 33.0 pg Final MCHC 10/23/2020 34.8 32.0 - 36.0 g/dL Final RDW 10/23/2020 12.6 11.0 - 16.0 % Final MPV 10/23/2020 9.7 8.4 - 12.8 fl Final NRBC 10/23/2020 0.00 0 /100 WBCs Final ABSOLUTE NRBC 10/23/2020 0.00 0 K/uL Final DIFF METHOD 10/23/2020 Auto Final NEUTS 10/23/2020 59.9 43.0 - 75.0 % Final LYMPHS 10/23/2020 31.7 18.2 - 47.4 % Final Few atypical Lymphs seen. MONOS 10/23/2020 7.4 4.00 - 11.00 % Final EOS 10/23/2020 0.2 0.0 - 8.0 % Final BASOS 10/23/2020 0.4 0.0 - 2.0 % Final Granulocytes, immature (%) 10/23/2020 0.4 0.0 - 0.9 % Final ABSOLUTE NEUTS 10/23/2020 2.73 1.80 - 7.70 K/uL Final ABSOLUTE LYMPHS 10/23/2020 1.45 1.00 - 3.10 K/uL Final ABSOLUTE MONOS 10/23/2020 0.34 0.20 - 0.80 K/uL Final ABSOLUTE EOS 10/23/2020 0.01 0.00 - 0.80 K/uL Final ABSOLUTE BASOS 10/23/2020 0.02 0.00 - 0.09 K/uL Final Granulocytes, immature 10/23/2020 0.02 0.00 - 0.05 K/uL Final SODIUM 10/23/2020 137 133 - 146 mmol/L Final CHLORIDE 10/23/2020 104 96 - 108 mmol/L Final POTASSIUM 10/23/2020 3.2* 3.3 - 5.1 mmol/L Final CO2 10/23/2020 19* 21 - 35 mmol/L Final BUN 10/23/2020 13 6 - 19 mg/dL Final CREATININE 10/23/2020 0.70 0.5 - 1.5 mg/dL Final GLUCOSE 10/23/2020 84 70 - 99 mg/dL Final CALCIUM 10/23/2020 8.2* 8.4 - 10.3 mg/dL Final EGFR 10/23/2020 88 >59 mL/min/1.73m2 Final Estimated glomerular filtration rate calculated using the CKD-EPI equation. ANION GAP 10/23/2020 17 10 - 20 mmol/L Final SARS-CoV-2 antibody total 10/23/2020 Positive* Negative Final Comment: A negative test result does not rule out the possibility of an infection with SARS-CoV-2. Serum or plasma samples from the early (pre-seroconversion) phase of illness can yield negative findings. Therefore, this test cannot be used to diagnose an acute infection. Also, over time, titers may decline and eventually become negative. Test Ordered 10/23/2020 Rapid COVID has been ordered Final Specimen Source 10/23/2020 NASAL Final SARS-CoV-2 RNA (COVID-19) 10/23/2020 Positive* Negative Final Comment: The specimen is positive for SARS-CoV-2, the coronavirus associated with COVID-19. Testing was performed using the [employer] NOW COVID-19 assay performed on the Sonics ID NOW Instrument. Fact sheets for this Emergency Use Authorization can be found at the following links: For Healthcare Providers: https://www.fda.gov/media/824799/download For Patients: https://www.fda.gov.media/481004/download. WHOLE BLOOD GLUCOSE 10/23/2020 82 70 - 99 mg/dL Final Ventricular Rate EKG/MIN 10/22/2020 78 BPM Final Atrial Rate 10/22/2020 78 BPM Final HI Interval 10/22/2020 156 ms Final QRS Duration 10/22/2020 80 ms Final QT Interval 10/22/2020 384 ms Final QTC Interval 10/22/2020 437 ms Final P Manning 10/22/2020 22 degrees Final R Wave Manning 10/22/2020 -7 degrees Final T Wave Manning 10/22/2020 6 degrees Final WBC 10/24/2020 3.68* 4.00 - 11.00 K/uL Final RBC 10/24/2020 4.42 3.72 - 5.30 M/uL Final HGB 10/24/2020 13.2 11.4 - 15.9 g/dL Final HCT 10/24/2020 37.2 34.2 - 46.8 % Final PLT 10/24/2020 215 140 - 430 K/uL Final MCV 10/24/2020 84.2 78.0 - 97.0 fL Final MCH 10/24/2020 29.9 25.0 - 33.0 pg Final MCHC 10/24/2020 35.5 32.0 - 36.0 g/dL Final RDW 10/24/2020 12.4 11.0 - 16.0 % Final MPV 10/24/2020 9.8 8.4 - 12.8 fl Final NRBC 10/24/2020 0.00 0 /100 WBCs Final ABSOLUTE NRBC 10/24/2020 0.00 0 K/uL Final DIFF METHOD 10/24/2020 Auto Final NEUTS 10/24/2020 66.0 43.0 - 75.0 % Final LYMPHS 10/24/2020 23.4 18.2 - 47.4 % Final MONOS 10/24/2020 9.5 4.00 - 11.00 % Final EOS 10/24/2020 0.0 0.0 - 8.0 % Final BASOS 10/24/2020 0.3 0.0 - 2.0 % Final Granulocytes, immature (%) 10/24/2020 0.8 0.0 - 0.9 % Final ABSOLUTE NEUTS 10/24/2020 2.43 1.80 - 7.70 K/uL Final ABSOLUTE LYMPHS 10/24/2020 0.86* 1.00 - 3.10 K/uL Final ABSOLUTE MONOS 10/24/2020 0.35 0.20 - 0.80 K/uL Final ABSOLUTE EOS 10/24/2020 0.00 0.00 - 0.80 K/uL Final ABSOLUTE BASOS 10/24/2020 0.01 0.00 - 0.09 K/uL Final Granulocytes, immature 10/24/2020 0.03 0.00 - 0.05 K/uL Final SODIUM 10/24/2020 140 133 - 146 mmol/L Final CHLORIDE 10/24/2020 105 96 - 108 mmol/L Final POTASSIUM 10/24/2020 3.5 3.3 - 5.1 mmol/L Final CO2 10/24/2020 21 21 - 35 mmol/L Final BUN 10/24/2020 13 6 - 19 mg/dL Final CREATININE 10/24/2020 0.60 0.5 - 1.5 mg/dL Final GLUCOSE 10/24/2020 138* 70 - 99 mg/dL Final CALCIUM 10/24/2020 8.8 8.4 - 10.3 mg/dL Final EGFR 10/24/2020 92 >59 mL/min/1.73m2 Final Estimated glomerular filtration rate calculated using the CKD-EPI equation. ANION GAP 10/24/2020 18 10 - 20 mmol/L Final MAGNESIUM 10/24/2020 2.2 1.6 - 2.6 mg/dL Final PHOSPHORUS 10/24/2020 3.2 2.7 - 4.5 mg/dL Final Procalcitonin 10/24/2020 0.05 0.00 - 0.08 ng/mL Final Admission on 10/14/2020, Discharged on 10/14/2020 Component Date Value Ref Range Status WBC 10/14/2020 5.13 4.00 - 11.00 K/uL Final RBC 10/14/2020 4.82 3.72 - 5.30 M/uL Final HGB 10/14/2020 14.6 11.4 - 15.9 g/dL Final HCT 10/14/2020 42.1 34.2 - 46.8 % Final PLT 10/14/2020 252 140 - 430 K/uL Final MCV 10/14/2020 87.3 78.0 - 97.0 fL Final MCH 10/14/2020 30.3 25.0 - 33.0 pg Final MCHC 10/14/2020 34.7 32.0 - 36.0 g/dL Final RDW 10/14/2020 12.9 11.0 - 16.0 % Final MPV 10/14/2020 9.7 8.4 - 12.8 fl Final NRBC 10/14/2020 0.00 0 /100 WBCs Final ABSOLUTE NRBC 10/14/2020 0.00 0 K/uL Final DIFF METHOD 10/14/2020 Auto Final NEUTS 10/14/2020 66.0 43.0 - 75.0 % Final LYMPHS 10/14/2020 15.8* 18.2 - 47.4 % Final MONOS 10/14/2020 16.4* 4.00 - 11.00 % Final EOS 10/14/2020 0.4 0.0 - 8.0 % Final BASOS 10/14/2020 1.0 0.0 - 2.0 % Final Granulocytes, immature (%) 10/14/2020 0.4 0.0 - 0.9 % Final ABSOLUTE NEUTS 10/14/2020 3.39 1.80 - 7.70 K/uL Final ABSOLUTE LYMPHS 10/14/2020 0.81* 1.00 - 3.10 K/uL Final ABSOLUTE MONOS 10/14/2020 0.84* 0.20 - 0.80 K/uL Final ABSOLUTE EOS 10/14/2020 0.02 0.00 - 0.80 K/uL Final ABSOLUTE BASOS 10/14/2020 0.05 0.00 - 0.09 K/uL Final Granulocytes, immature 10/14/2020 0.02 0.00 - 0.05 K/uL Final SODIUM 10/14/2020 136 133 - 146 mmol/L Final CHLORIDE 10/14/2020 99 96 - 108 mmol/L Final POTASSIUM 10/14/2020 4.1 3.3 - 5.1 mmol/L Final CO2 10/14/2020 23 21 - 35 mmol/L Final BUN 10/14/2020 17 6 - 19 mg/dL Final CREATININE 10/14/2020 0.90 0.5 - 1.5 mg/dL Final GLUCOSE 10/14/2020 116* 70 - 99 mg/dL Final CALCIUM 10/14/2020 9.3 8.4 - 10.3 mg/dL Final EGFR 10/14/2020 65 >59 mL/min/1.73m2 Final Estimated glomerular filtration rate calculated using the CKD-EPI equation. ANION GAP 10/14/2020 18 10 - 20 mmol/L Final ALKALINE PHOSPHATASE 10/14/2020 76 39 - 117 U/L Final TOTAL BILIRUBIN 10/14/2020 0.5 0.0 - 1.2 mg/dL Final DIRECT BILIRUBIN 10/14/2020 <0.2 0 - 0.3 mg/dL Final Bilirubin (Indirect) 10/14/2020 NOT CALCULATED 0 - 1.5 mg/dL Final AST 10/14/2020 74* 0 - 37 U/L Final ALT 10/14/2020 48* 0 - 40 U/L Final TOTAL PROTEIN 10/14/2020 7.7 6.5 - 8.0 g/dL Final ALBUMIN 10/14/2020 4.3 3.9 - 4.8 g/dL Final GLOBULIN 10/14/2020 3.4 1 - 4.8 g/dL Final A/G Ratio 10/14/2020 1.26 1.00 - 4.80 RATIO Final C REACTIVE PROTEIN 10/14/2020 14.4* 0.0 - 4.0 mg/L Final LACTATE 10/14/2020 1.33 0.50 - 2.20 mmol/L Final Special Requests 10/14/2020 None Final BLOOD CULTURE 10/14/2020 NO GROWTH 5 DAYS Final Special Requests 10/14/2020 None Final BLOOD CULTURE 10/14/2020 NO GROWTH 5 DAYS Final Test Ordered 10/14/2020 Rapid COVID, Flu has been ordered Final Specimen Source 10/14/2020 NASAL Final SARS-CoV-2 RNA (COVID-19) 10/14/2020 Negative Negative Final Comment: Negative results do not preclude SARS-CoV-2 infection and should not be used as the sole basis for patient management decisions. Negative results must be combined with clinical observations, patient history, and epidemiological information. Testing was performed using the [employer] ID NOW COVID-19 assay performed on the Sonics ID NOW Instrument. Fact sheets for this Emergency Use Authorization can be found at the following links: For Healthcare Providers: https://www.fda.gov/media/899012/download For Patients: https://www.Forter.gov.media/729127/download. Influenza A, NAAT 10/14/2020 Negative Negative Final Influenza B, NAAT 10/14/2020 Negative Negative Final Ventricular Rate EKG/MIN 10/14/2020 82 BPM Final Atrial Rate 10/14/2020 82 BPM Final HI Interval 10/14/2020 168 ms Final QRS Duration 10/14/2020 76 ms Final QT Interval 10/14/2020 376 ms Final QTC Interval 10/14/2020 439 ms Final P Manning 10/14/2020 52 degrees Final R Wave Manning 10/14/2020 -3 degrees Final T Wave Manning 10/14/2020 13 degrees Final ANAPLASMA PHAGOCYTO 10/14/2020 Negative Negative Final EHRLICHIA CHAFFEENS 10/14/2020 Negative Negative Final EHRL EWINGII/CANIS 10/14/2020 Negative Negative Final EHRL MURIS-LIKE 10/14/2020 Negative Negative Final Comment: (NOTE) ADDITIONAL INFORMATION This test was developed and its performance characteristics determined by [facility] in a manner consistent with CLIA requirements. This test has not been cleared or approved by the U.S. Food and Drug Administration. Special Requests 10/14/2020 None Final MALARIA SMEAR 10/14/2020 No Malaria or Babesia observed Final Lyme AB IgG 10/14/2020 Negative Negative Final Lyme AB IgM 10/14/2020 Negative Negative Final COLOR 10/14/2020 Yellow Yellow Final CLARITY 10/14/2020 CLOUDY Final GLUCOSE 10/14/2020 Negative Negative Final BILI 10/14/2020 1+* Negative Final KETONES 10/14/2020 Negative Negative Final SPECIFIC GRAVITY 10/14/2020 >1.030 1.005 - 1.030 Final BLOOD 10/14/2020 Negative Negative Final PH 10/14/2020 6.0 5.0 - 8.0 Final Protein-UA 10/14/2020 Negative Negative Final NITRITE 10/14/2020 Negative Negative Final Leukocyte esterase, ur 10/14/2020 2+* Negative Final WBC 10/14/2020 11-20* NONE SEEN /hpf Final Comment: Standard 12 mL volume not received. Microscopic performed on centrifuged urine, volume: 3ML RBC 10/14/2020 3-5* NONE SEEN /hpf Final URINE EPITHELIAL 10/14/2020 11-20* NONE SEEN Final MUCUS 10/14/2020 3+* NONE SEEN /hpf Final BACTERIA 10/14/2020 3+* NONE SEEN /hpf Final Special Requests 10/14/2020 Final Value:None Reflexed from [id number] Urine Culture 10/14/2020 >100,000 colony forming units per mL MIXED JILLIAN (3 OR MORE COLONY TYPES) Culture indicates contamination. Please resubmit if necessary.* Final Hospital Outpatient Visit on 10/13/2020 Component Date Value Ref Range Status COVID Testing Status 10/13/2020 Specimen received in analyzing lab. Results should be available within 24 to 48 hrs. Final Symptomatic? 10/13/2020 YES Final Specimen Source 10/13/2020 AN SWAB Final SARS-CoV 2 (COVID-19) PCR 10/13/2020 NEGATIVE Negative Final Comment: (NOTE) 2019-novel Coronavirus (2019-nCoV) not detected by the qRT-PCR assay. Consider testing for other respiratory viruses or re-collecting for 2019-nCoV testing. Note: Optimum timing for peak viral levels during infections caused by 2019-nCoV have not been determined. Collection of multiple specimens from the same patient may be necessary to detect the virus. Methods and Limitations: This Laboratory Developed Test is a high-throughput version of the CDC 2019-nCoV Realtime RT-PCR test and has been validated in accordance with the guidance issued by the [employer] [place] [employer] (Aug) and the FDA (Aug 27, 2019). This test has not been FDA cleared or approved but is being run under the FDAs Emergency Use Authorization (EUA) mechanism. This test was validated for dry nasal swabs. Method: RNA is isolated from respiratory specimens using Kohort-96 Viral RNA Isolation Kits (EventBuilder); RNA is reverse transcribed to cDNA, and subsequently ampli fied in a Real-Time PCR Instrument (Applied Interview Rocket [id number]). This system provides qualitative detection of nucleic acid from SARS-CoV-2. For more detailed information on the test methods and limitations as well as for Fact Sheets for both Patients and Healthcare providers see https://broad.io/lehac99ifpu-rkozvhdgaw4. Positive results are indicative of active infection with SARS-CoV-2 but do not rule out bacterial infection or co-infection with other viruses. The agent detected may not be the definite cause of disease. Negative results do not preclude SARS-CoV-2 infection and should not be used as the sole basis for patient management decisions. False negative results may occur if amplification inhibitors are present in the specimen or if inadequate numbers of organisms are present in the specimen due to improper collection, transportation, or handling. If the virus mutates in the RT-PCR target region, SARS-CoV-2 may not be detected or may be detected less predictably. Inhibitors or other types of interference may produce a false negative result. Hospital Outpatient Visit on 10/11/2020 Component Date Value Ref Range Status COVID Testing Status 10/11/2020 In-house testing being performed Final Symptomatic? 10/11/2020 NO Final SPECIMEN SOURCE/DESCRIPTION 10/11/2020 NASOPHARYNGEAL SWAB Final SARS-CoV 2 (COVID-19) PCR 10/11/2020 Negative Negative Final Comment: SARS-CoV-2 not detected Negative results do not preclude SARS-CoV-2 infection and should not be used as the sole basis for patient management decisions. Negative results must be combined with clinical observations, patient history, and epidemiological information. This test has been authorized by the FDA under an Emergency Use Authorization (EUA) for use by authorized laboratories. Hospital Outpatient Visit on 10/10/2020 Component Date Value Ref Range Status IRON 10/10/2020 98 30 - 160 ug/dL Final IRON BINDING CAPACITY 10/10/2020 326 228 - 428 ug/dL Final TRANSFERRIN SATURAT. 10/10/2020 30 15 - 50 % Final FERRITIN 10/10/2020 104 13 - 150 ug/L Final Assessment & Plan (10/23/2020 4:38 AM EDT): Continue lisinopril Assessment & Plan (09/19/2020 2:21 PM EDT): stable Assessment & Plan (05/09/2020 9:06 AM EST): Home BP monitoring recommended. Continue current recommended Assessment & Plan (03/29/2020 9:10 AM EDT): Miladis Ramírez has hypertension and she is taking the above medication as directed without any side effects. her blood pressure is within normal limits and stable. she will follow up as directed. Assessment & Plan (10/04/2019 10:09 AM EDT): Well controlled. Continue lisinopril Assessment & Plan (07/05/2019 10:24 AM EST): Stable, continue lisinopril Assessment & Plan (04/01/2019 9:20 AM EDT): Well-controlled Assessment & Plan (10/27/2018 9:47 AM EDT): Under good control on current medications and a encourage adherence to low- sodium. Assessment & Plan (07/13/2018 6:44 PM EST): Stable, continue lisinopril Assessment & Plan (04/13/2018 7:21 PM EDT): She is worried about hypotension and fatigue with the addition of a beta- nicol. I think it is reasonable for her to discontinue the DAMARIS inhibitor for now Assessment & Plan (03/23/2018 6:41 PM EDT): Continue lisinopril Assessment & Plan (03/05/2018 12:55 PM EDT): A good good control on current medications and low-sodium diet. Will be maintained. Assessment & Plan (01/12/2018 6:03 PM EDT): Stable Assessment & Plan (10/14/2017 11:14 AM EDT): stable Hyperlipidemia 10/14/2017 Assessment & Plan (09/22/2024 11:04 AM EDT): Stable, well managed on atorvastatin 20mg. Denies side effects. Will continue this medication. She will go for fasting lab work prior to next visit. Assessment & Plan (03/24/2024 12:08 PM EDT): Stable, well managed on atorvastatin 20mg. Denies side effects. Will continue this medication. Assessment & Plan (01/21/2024 9:41 PM EDT): Lab Results Component Value Date CHOL 129 12/08/2023 HDL 46 12/08/2023 LDL 48 (L) 12/08/2023 TRIG 175 (H) 12/08/2023 CHOLHDL 2.8 (L) 12/08/2023 Managed on atorvastatin 20mg. Denies side effects. Assessment & Plan (10/22/2023 10:15 AM EDT): Managed on atorvastatin 20mg. Denies side effects. She will go for fasting lab work. Assessment & Plan (07/10/2023 10:50 AM EST): Stable. She has been taking 40mg for the last couple of years but has recently self reduced her dose to 20mg. She denies any side effects that she was having at either dose. We agreed to have her continue the 20mg and we will check lipid panel on this dose in 6 months. Assessment & Plan (08/07/2022 11:46 AM EST): Refill sent today Assessment & Plan (06/13/2021 9:25 AM EST): Increase lipitor to 40 mg Assessment & Plan (03/29/2020 9:11 AM EDT): Miladis Ramírez has hypercholesterolemia and she is taking the above medication as directed without any side effects. Refilled today. she will follow up as directed. Assessment & Plan (04/01/2019 9:21 AM EDT): Continue statin, due for labs. Assessment & Plan (04/13/2018 7:21 PM EDT): Plan is to change her to more potent statin. Stop simvastatin, start Lipitor. Assessment & Plan (03/23/2018 6:41 PM EDT): Continue simvastatin Fatty liver 10/14/2017 Overview (03/13/2021): CT scan 10/04/17 Has hemochromatosis Assessment & Plan (06/13/2021 9:25 AM EST): Stable. Low cholesterol diet discussed Hereditary hemochromatosis 05/08/2017 Overview (05/08/2017): December 2015 elevated LFTs leading to evaluation which revealed elevated ferritin. 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 Initiated on phlebotomy January 2016 Assessment & Plan (02/17/2025 11:50 AM EDT): Appears stable. She is being followed by mill labor supervisor-Dr. Arias usually every 3- 6 months. She is 1 of 8 siblings with hemochromatosis. I reviewed her liver ultrasound showing mild fatty infiltration but no cirrhosis. Ferritin fluctuates- normal mid January 2025-next scheduled in February 2025. Assessment & Plan (09/22/2024 11:04 AM EDT): Followed by Dr. Arias. She is having ferritin levels monitored monthly and goes for therapeutic phlebotomies as needed at [facility]. Will continue to monitor. Lab Results Component Value Date JORGE 114 09/02/2024 Assessment & Plan (07/07/2024 10:50 AM EST): Appears stable. She is being followed by mill labor supervisor-Dr. Arias usually every 3- 6 months. She is 1 of 8 siblings with hemochromatosis. I reviewed her liver ultrasound showing mild fatty infiltration but no cirrhosis. Ferritin fluctuates- normal mid August 2023-next scheduled in November 2023. Assessment & Plan (03/24/2024 12:07 PM EDT): Followed by Dr. Arias. She is having ferritin levels monitored and goes for therapeutic phlebotomies as needed at [facility]. Will continue to monitor. Lab Results Component Value Date JORGE 214 (H) 03/10/2024 Scheduled for phlebotomy next week. Assessment & Plan (01/21/2024 9:41 PM EDT): Vivek, followed by Dr. Arias. She is having ferritin levels monitored and goes for therapeutic phlebotomies as needed at [facility]. Will continue to monitor. Assessment & Plan (10/22/2023 9:53 AM EDT): Vivek, followed by Dr. Arias. She is having ferritin levels monitored and goes for therapeutic phlebotomies as needed at [facility]. Will continue to monitor. Assessment & Plan (09/30/2023 10:34 PM EDT): Appears stable. She is being followed by mill labor supervisor-Dr. Arias usually every 3- 6 months. She is 1 of 8 siblings with hemochromatosis. I reviewed her liver ultrasound showing mild fatty infiltration but no cirrhosis. Ferritin fluctuates- normal mid August 2023-next scheduled in November 2023. Assessment & Plan (07/10/2023 10:47 AM EST): Vivek, followed by Dr. Arias. She is having ferritin levels monitored and goes for therapeutic phlebotomies as needed at [facility]. Will continue to monitor. Assessment & Plan (07/11/2022 10:15 AM EST): Appears stable. She is being followed by mill labor supervisor-Dr. Arias usually every 3- 6 months. She is 1 of 8 siblings with hemochromatosis. I reviewed her liver ultrasound showing mild fatty infiltration but no cirrhosis. Ferritin fluctuates-elevated in mid June, normal mid July 2021-following phlebotomy. Assessment & Plan (03/14/2022 10:22 AM EDT): Miladis has hereditary hemochromatosis and she is due for a ferritin level-I ordered this today. I will update her with results. Assessment & Plan (01/02/2022 9:18 AM EDT): Appears stable. She is being followed by mill labor supervisor-Dr. Arias usually every 3- 6 months. She is 1 of 8 siblings with hemochromatosis. I reviewed her liver ultrasound showing mild fatty infiltration but no cirrhosis. Ferritin fluctuates-elevated in mid June, normal mid July 2021-following phlebotomy. Assessment & Plan (09/07/2021 8:15 PM EST): Appears stable. She is being followed by mill labor supervisor-Dr. Arias usually every 3- 6 months. She is 1 of 8 siblings with hemochromatosis. I reviewed her liver ultrasound showing mild fatty infiltration but no cirrhosis. Ferritin fluctuates-elevated in mid June, normal mid July 2021-following phlebotomy. Assessment & Plan (07/10/2020 8:46 AM EST): This is stable. She had bloodletting done this summer. She is being followed by hematology. She is to of 8 siblings with hemochromatosis. I reviewed her liver ultrasound showing mild fatty infiltration but no cirrhosis. Liver function tests were reviewed. Assessment & Plan (05/09/2020 9:06 AM EST): Stable, follows w hematology Assessment & Plan (01/10/2020 8:39 AM EDT): Stable. Liver function test and CBC normal. Follow-up gastroenterology. She is a compound heterozygote. Assessment & Plan (10/31/2019 8:59 AM EDT): She is due for another phlebotomy on November 09. Her last one was October 12. Her ferritin levels have remained high normal. No liver disease that we can detect. She will continue to follow-up with hematology. Lab work was reviewed. Hospital Outpatient Visit on 10/06/2019 Component Date Value Ref Range Status COLOR 10/06/2019 Yellow Yellow Final CLARITY 10/06/2019 Clear Final GLUCOSE 10/06/2019 Negative Negative Final BILI 10/06/2019 2+* Negative Final KETONES 10/06/2019 Negative Negative Final SPECIFIC GRAVITY 10/06/2019 1.020 1.005 - 1.030 Final BLOOD 10/06/2019 Negative Negative Final PH 10/06/2019 6.0 5.0 - 8.0 Final Protein-UA 10/06/2019 Negative Negative Final NITRITE 10/06/2019 Positive* Negative Final Leukocyte esterase, ur 10/06/2019 1+* Negative Final WBC 10/06/2019 21-49* NONE SEEN /hpf Final RBC 10/06/2019 NONE SEEN NONE SEEN /hpf Final URINE EPITHELIAL 10/06/2019 0-4* NONE SEEN Final MUCUS 10/06/2019 NONE SEEN NONE SEEN /hpf Final BACTERIA 10/06/2019 3+* NONE SEEN /hpf Final Special Requests 10/06/2019 None Final GRAM STAIN 10/06/2019 Moderate GRAM NEGATIVE RODS Final Urine Culture 10/06/2019 >100,000 colony forming units per mL ESCHERICHIA COLI* Final Hospital Outpatient Visit on 09/19/2019 Component Date Value Ref Range Status IRON 09/19/2019 126 30 - 160 ug/dL Final IRON BINDING CAPACITY 09/19/2019 300 228 - 428 ug/dL Final TRANSFERRIN SATURAT. 09/19/2019 42 15 - 50 % Final FERRITIN 09/19/2019 112 13 - 150 ug/L Final SODIUM 09/19/2019 141 133 - 146 mmol/L Final POTASSIUM 09/19/2019 4.2 3.3 - 5.1 mmol/L Final CHLORIDE 09/19/2019 105 96 - 108 mmol/L Final CO2 09/19/2019 20* 21 - 35 mmol/L Final BUN 09/19/2019 21* 6 - 19 mg/dL Final CREATININE 09/19/2019 0.90 0.5 - 1.5 mg/dL Final GLUCOSE 09/19/2019 137* 70 - 99 mg/dL Final ALBUMIN 09/19/2019 4.3 3.9 - 4.8 g/dL Final TOTAL PROTEIN 09/19/2019 8.0 6.5 - 8.0 g/dL Final CALCIUM 09/19/2019 9.8 8.4 - 10.3 mg/dL Final ALKALINE PHOSPHATASE 09/19/2019 76 39 - 117 U/L Final TOTAL BILIRUBIN 09/19/2019 0.8 0.0 - 1.2 mg/dL Final AST 09/19/2019 20 0 - 37 U/L Final ALT 09/19/2019 14 0 - 40 U/L Final GLOBULIN 09/19/2019 3.7 1 - 4.8 g/dL Final EGFR 09/19/2019 65 >59 mL/min/1.73m2 Final If patient is black, multiply result by 1.159. Estimated glomerular filtration rate calculated using the CKD-EPI equation. ANION GAP 09/19/2019 20 10 - 20 mmol/L Final WBC 09/19/2019 7.26 4.00 - 11.00 K/uL Final Note Reference Range updates to all CBC and Differential results. RBC 09/19/2019 4.91 3.72 - 5.30 M/uL Final HGB 09/19/2019 14.9 11.4 - 15.9 g/dL Final Note updated Reference Ranges for all CBC and Differential results. HCT 09/19/2019 42.7 34.2 - 46.8 % Final PLT 09/19/2019 310 140 - 430 K/uL Final MCV 09/19/2019 87.0 78.0 - 97.0 fL Final MCH 09/19/2019 30.3 25.0 - 33.0 pg Final MCHC 09/19/2019 34.9 32.0 - 36.0 g/dL Final RDW 09/19/2019 12.3 11.0 - 16.0 % Final MPV 09/19/2019 10.0 8.4 - 12.8 fl Final NRBC 09/19/2019 0.00 0 /100 WBCs Final ABSOLUTE NRBC 09/19/2019 0.00 0 K/uL Final DIFF METHOD 09/19/2019 Auto Final NEUTS 09/19/2019 58.1 43.0 - 75.0 % Final LYMPHS 09/19/2019 32.4 18.2 - 47.4 % Final MONOS 09/19/2019 5.8 4.00 - 11.00 % Final EOS 09/19/2019 2.6 0.0 - 8.0 % Final BASOS 09/19/2019 1.0 0.0 - 2.0 % Final Granulocytes, immature (%) 09/19/2019 0.1 0.0 - 0.9 % Final ABSOLUTE NEUTS 09/19/2019 4.22 1.80 - 7.70 K/uL Final ABSOLUTE LYMPHS 09/19/2019 2.35 1.00 - 3.10 K/uL Final ABSOLUTE MONOS 09/19/2019 0.42 0.20 - 0.80 K/uL Final ABSOLUTE EOS 09/19/2019 0.19 0.00 - 0.80 K/uL Final ABSOLUTE BASOS 09/19/2019 0.07 0.00 - 0.09 K/uL Final Granulocytes, immature 09/19/2019 0.01 0.00 - 0.05 K/uL Final Assessment & Plan (10/04/2019 10:05 AM EDT): Recent ferritin 112 so pt went for phlebotomy. FU labs next week. Assessment & Plan (07/05/2019 10:24 AM EST): Stable, has phlebotomy scheduled next week. Most recent ferritin level was within normal limits. Assessment & Plan (05/03/2019 9:05 AM EST): Under good control. Ferritin levels have been normal. Awaiting ultrasound. No signs of erosive secondary osteoarthritis sometimes seen with hemochromatosis area Assessment & Plan (04/01/2019 9:21 AM EDT): Recent ferritin level within normal limits Assessment & Plan (03/23/2018 6:43 PM EDT): Last iron level was 89 and had one pint removed. She states goal is 50. Will need outpt follow up Assessment & Plan (03/05/2018 12:55 PM EDT): Having phlebotomies monthly now. Reviewed recent lab work showing ferritin 111. Hemoglobin 14 with hematocrit 43. Glucose 113 with BUN 21 and AST 38. Assessment & Plan (01/12/2018 6:02 PM EDT): Stable. Hasn't needed therapeutic phlebotomy recently. Follows with heme. Assessment & Plan (10/14/2017 11:15 AM EDT): Following w Dr Arias & undergoing monthly phlebotomy Resolved Problems Problem Noted Date Diagnosed Date Resolved Date Impetigo 10/27/2024 03/15/2025 Assessment & Plan (10/27/2024 11:18 AM EDT): Miladis presents for tatum crusted sores on lower lip, suspected impetigo. This did not improve with topical therapy. I have recommended beginning cephalexin, though have asked her to hold off for a few days as this morning she does feel there has been some improvement. She will begin medication if this does not continue. Educated on medication administration, benefits, risks, and side effects profile. Discussed recommendation to return if symptoms fail to improve or worsen. Pulmonary nodule 10/27/2024 03/15/2025 Overview (10/27/2024): Noted on chest CT 09/2024- 10 mm nodule right lung. Follow-up chest CT recommended Sore of lip 09/06/2024 03/15/2025 Assessment & Plan (09/06/2024 3:15 PM EDT): Miladis presents for a sore which is yellow and crusty on the right corner of her mouth-this started last Thursday and she has been using a triple antibiotic szhfi-yume-dip-counter cream-not benefiting. I wrote for mupirocin cream today secondary to the yellow crusty formation noted -likely impetigo-I informed her to call if this does not improve or if this does not get better by next week- otherwise to call. She will call if there are any other issues or concerns. She understands and agrees. Vaginal burning 05/20/2023 01/21/2024 Assessment & Plan (07/10/2023 11:04 AM EST): Patient continues to have vaginal burning despite treatment for jessica with fluconazole. Pelvic exam performed today, patient without vaginal discharge or bleeding, mild tenderness when swabbing vaginal wall. No obvious indication for the burning on exam. Sample sent for vaginitis testing. Discussed plan to try topical estrogen for vaginal atrophy if this is negative but she would like to await results. Assessment & Plan (05/20/2023 11:54 AM EST): Patient endorses 2 weeks of vaginal burning sensation, and the period where she has received antibiotics for E. coli cystitis, without improvement of the vaginal burning sensation. She denies discharge, itchiness or dysuria/urinary frequency. She does endorse multiple courses of antibiotics within the last 6 months. Patient declines pelvic exam today which I think is reasonable given no red flag symptoms. Concern for possible vaginitis causing burning sensation, most likely with candidal infection given recurrent antibiotic prescriptions. Given she has had a recent U/A which was unremarkable, low likelihood that represents an untreated UTI. - Empiric treatment for candidal vaginitis with fluconazole 100 mg q72hrs for 2 doses - Follow-up if not improved, will perform pelvic exam at the time Acute cystitis without hematuria 05/04/2023 07/10/2023 Assessment & Plan (05/04/2023 2:39 PM EST): I diagnosed Miladis with a UTI today in the office based on symptoms as well as urinalysis showing positive blood, nitrates and leuks. I started her on Macrobid today. I sent the urine out for culture and I will update her if I need to change antibiotics at all. I advised her to stay well-hydrated with water and to call if there are any other issues or [id number] with a new PCP in 2 weeks. She understands and agrees. Other chest pain 07/28/2022 08/07/2022 Class 1 obesity due to exces s calories with serious comorbidity and body mass index (BMI) of 33.0 to 33.9 in adult 07/11/2022 02/17/2025 Assessment & Plan (07/07/2024 1:05 PM EST): Continue diligent portion contro particularly in view of gaining 2 pounds from 199 on 09/30/2023 up to 201 today . Limit concentrated sugars, saturated fats and calories in the diet. Keep well-hydrated. If unable to achieve expected goal consider formal dietary/nutritional support. Assessment & Plan (09/30/2023 10:35 PM EDT): Congratulations on losing 1 pound since June 2022 from 200 down to 199 today- keep it off! Continue diligent portion control. Limit concentrated sugars, saturated fats and calories in the diet. Keep well-hydrated. If unable to achieve expected goal consider formal dietary/nutritional support. Assessment & Plan (07/13/2022 6:02 PM EST): Congratulations on losing 4 pounds since December 2021-keep it off! Continue diligent portion control. Limit concentrated sugars, saturated fats and calories in the diet. Keep well-hydrated. If unable to achieve expected goal consider formal dietary/nutritional support. Chest pain 06/10/2022 07/10/2023 Assessment & Plan (08/07/2022 11:49 AM EST): She is improving on omeprazole Assessment & Plan (07/07/2022 1:07 PM EST): In past her CP resolved w PPI. I will restart her on omeprazole. She will go for nuclear stress test as recommended by cardiology. Continue ASA Assessment & Plan (06/19/2022 11:44 AM EST): Patient has history of chest pain which is actually impressive due to the fact that it comes on exertion and gets relieved when she rests she also gets short of breath on going up the stairs. No clinical evidence of heart failure we will do a cardial perfusion imaging stress test also particularly because her electrocardiogram is abnormal Told in the meantime to be careful and avoid the cold harsh winter outside may restart taking a baby aspirin 1 a day if she has no contraindication and keep her blood pressure down also encouraged her about her lipids where she had it done and stay on low-cholesterol diet Assessment & Plan (06/10/2022 11:02 AM EST): Miladis has been having issues with chest pain more recently. I reviewed her ER note along with her most recent EKG and lab work and chest x-ray. I repeated an EKG today secondary to her continued shortness of breath (this shows a normal sinus rhythm, no ST or T wave inversions. Reassuring.). I put an order in for lab work as well. I referred her to cardiology for a stress test and echocardiogram. She will call if things get worse or if there are any other issues or concerns. Follow-up with her PCP in 2 weeks. She understands and agrees. Shortness of breath 06/10/2022 03/15/20 25 Assessment & Plan (12/19/2024 3:20 PM EDT): Miladis presents for intermittent shortness of breath. I have a suspicion that she is fluid overloaded. I ordered labs to confirm-I will update her with the results. I started her on Lasix 20 mg to be taken in the morning for the next 7 mornings. I ordered an echo to look at her EF. Follow-up in a week. I reviewed her most recent renal function-normal. I gave guidance to avoid adding salt to the food and to try to ambulate more throughout the day to help move the blood from her legs back up to her heart. I advised her to elevate her legs while sitting down. I informed her to call if there are any other issues or concerns if this gets worse. She understands and agrees. Assessment & Plan (09/01/2022 4:14 PM EST): Exertional shortness of breath which has been present since having COVID in 09/2020. PFTs from 01/2021 were unremarkable aside from a mild, isolated diffusion capacity which could be secondary to body habitus in the setting if obesity and an impaired ERV. CT chest from 07/2022 only notable for mild right lower lobe bronchiectasis and minimal atelectasis versus scarring. These changes could be post-infectious/inflammatory in nature but would be too mild to be resulting in her symptoms. As such, I suspect her shortness of breath is likely secondary to obesity, long COVID, and related deconditioning. We discussed the natural course of long COVID as we currently understand it. Hopefully, her exertional dyspnea and exertional capabilities will improve over time. Recommend continued efforts at graded exercise and weight loss. She was advised to call our office with any questions or concerns that might arise in the future. Assessment & Plan (06/10/2022 11:01 AM EST): Miladis has been having issues with shortness of breath more recently. I reviewed her ER note along with her most recent EKG and lab work and chest x-ray. I repeated an EKG today secondary to her continued shortness of breath. I put an order in for lab work as well. I referred her to cardiology for a stress test and echocardiogram. She will call if things get worse or if there are any other issues or concerns. Follow-up with her PCP in 2 weeks. She understands and agrees. Need for Td vaccine 06/10/2022 01/21/20 24 Assessment & Plan (06/10/2022 11:02 AM EST): Miladis is due for a Td vaccine-this was given today in the office-no complications. She was appreciative. Class 1 obesity due to exces s calories without serious comorbidity in adult 09/02/2021 Assessment & Plan (01/02/2022 9:18 AM EDT): Portion control. Limit concentrated sugars, saturated fats and calories in the diet. Keep well-hydrated. If unable to achieve expected goal consider formal dietary/nutritional support. Assessment & Plan (09/07/2021 8:15 PM EST): Portion control. Limit concentrated sugars, saturated fats and calories in the diet. Keep well-hydrated. If unable to achieve expected goal consider formal dietary/nutritional support. On statin therapy 09/02/2021 01/21/2024 Assessment & Plan (01/02/2022 9:18 AM EDT): Monitor for muscle tenderness, swelling and weakness Assessment & Plan (09/07/2021 8:27 PM EST): Monitor for muscle tenderness, swelling and weakness Dyspnea on exertion 01/28/2021 03/15/20 Assessment & Plan (07/07/2022 1:13 PM EST): Undergoing cardiac eval again. Will tx the GERD as well. Assessment & Plan (05/14/2022 10:55 AM EST): She has gained weight this year and seems to be deconditioned. She has been evaluated in the office with EKG for this and it was normal. I asked her to gradually increase her activity level and contact me if the symptoms worsen or certainly if she develops any chest pain with exertion. Assessment & Plan (11/05/2021 5:20 PM EDT): History of dyspnea after COVID 09/2020 but that had cleared by late summer. Mild dyspnea in past week with also a day of diarrhea, trace cough, sense of weakness. ECG and exam reassuring today, normal vitals. check COVID PCR and CBC CMP. right now improving,? viral trigger, if not continually better over 2 wks or if worsening followup Assessment & Plan (03/28/2021 10:34 AM EDT): Largely improved. PFTs showing mostly normal studies. Minimally abnormal pulmonary function studies with preserved spirometry and lung volumes with isolated mild decrease in diffusion capacity. Etiology of the latter finding is unclear, but differential includes significant anemia, diffuse parenchymal lung disease, or pulmonary vascular disease. Given presenting symptoms of shortness of breath, clinical, radiographic, and if indicated echocardiographic correlation advised. She is not anemic. I do suspect any PEs. Her last echo was normal. Assessment & Plan (01/28/2021 9:51 AM EDT): Most likely related to post COVID 19 infection. CXR overwhelmingly improved, may have some post COVID residual which also should resolve with time. Will not need repeat CXR unless patient becomes more symptomatic or should have worsening shortness of breath. Will order pulmonary function tests to evaluate pulmonary function. History of COVID-19 11/21/2020 01/21/20 Assessment & Plan (09/01/2022 4:15 PM EST): Empirically treated for COVID-19 pneumonia in 09/2020. Despite negative PCR, her clinical presentation and CT chest imaging were all compatible with COVID-19. She received a 10 day course of dexamethasone. Fracture of left wrist with routine healing 11/21/2020 03/13/2021 Assessment & Plan (11/21/2020 12:00 PM EDT): She remains casted. Pain is controlled. She will FU with Ortho. Buttock pain 11/21/2020 07/07/2022 Assessment & Plan (01/07/2021 9:02 AM EDT): Improved with physical therapy and likely secondary to referred right lower lumbar facet arthropathy and right sacroiliac dysfunction without evidence of radiculopathy. Encourage compliance with home exercise program and continuance of etodolac. Assessment & Plan (11/21/2020 12:01 PM EDT): R buttock pain. Differential dx included muscle strain, lumbar stenosis. She will stretch. She will let me know if it worsens or fails to resolve Gastroenteritis 11/07/2020 11/21/2020 Assessment & Plan (11/08/2020 3:58 PM EDT): Epigastric pain with vomiting and diarrhea, suspected viral cause but no known sick contacts. Most recently in the hospital for COVID-19 and treated with a course of Decadron, her electrolytes and VS do not suggest adrenal insufficiency. She was briefly on antibiotics early in the course of Covid, so we will need to consider C. Difficile, she has more predominant diarrhea today than anything else. We will check for C. Difficile. Continue supportive measures with gentle hydration. She is started to eat a bit more and walk around more. Enteritis 11/07/2020 11/21/2020 Multifocal pneumonia 10/23/202001/09/ 021 Overview (11/21/2020): COVID PNA 09/2020 Assessment & Plan (11/21/2020 11:55 AM EDT): She still has SOB w exertion,but has been improving. No cough or wheezing. Advised to rest when fatigued or SOB. Discussed OT eval for home safety as she remains high risk for falls. Emailed her [facility] nurse & PT Assessment & Plan (10/23/2020 4:28 AM EDT): Presumably COVID negative COVID given extensive exposure to two sisters with symptomatic disease prior to onset of symtpoms. Routine Care O2 PRN for sat <92% Monitor Repeat COVID test again ID consult given ? Need for alt testing Cont CTX and Azith for now Gait abnormality 05/16/2020 07/10/2023 Assessment & Plan (05/16/2020 9:01 AM EST): This could be due to vision problem from her cataract. She will let me know if sx persist after surgery, in which case she will need neurologic evaluation. She does note tingling in feet so DM neuropathy is on the differential I did reviewed her recent normal/stable labs Rash of face 03/29/2020 05/14/2022 Assessment & Plan (07/11/2020 7:40 PM EST): No rash or lesions today. May be perioral dermatitis or seborrheic dermatitis, but it doesn't make sense that it's clearing so quickly. Doesn't sound herpetic. Could be irritation related to mask use, although she believes it's occurred In absence of mask use. I asked her to take pictures & send these to me on portal, or book a same day appt when it recurs. Assessment & Plan (03/29/2020 9:11 AM EDT): Miladis has a rash on her face- likely an infection and I want to treat this with an antibiotic ointment. She will use this as directed. She will call if this does not improve or if this gets worse. She understands and agrees. Burning sensation of foot 01/31/2020 Assessment & Plan (01/31/2020 1:26 PM EDT): Reviewed differential diagnosis including diabetic neuropathy, skin condition, vitamin B12 deficiency. Labs ordered. We will follow-up with patient with results. Family history of James thyroiditis 07/05/2019 01/21/2024 Trochanteric bursitis of left hip 01/26/2019 12/12/2021 Assessment & Plan (04/01/2019 9:22 AM EDT): Improved with steroid shot and physical therapy. She is continuing home exercises. Assessment & Plan (01/26/2019 11:29 AM EDT): No improvement with NSAId, Ice, Heat. Pt planned in 2 weeks. Pt struggling w daily ADLs because of pain. She was desirous of steroid injection. Tear of meniscus of right kn ee as current injury 10/27/2018 12/12/2021 Assessment & Plan (01/07/2021 9:03 AM EDT): Exam stable. Reviewed MRI showing large bucket-handle tear. No evidence of instability or synovitis. Continue well fitting supportive shoes with good shock absorption and quadricep strengthening. Assessment & Plan (07/10/2020 8:47 AM EST): Some intermittent pain but no swelling, locking, or giving way. This will continue to be managed with external knee support as needed, quadricep strengthening, well fitting supportive shoes with good shock absorption, and weight management. For acute flares we may do intra-articular aspiration and cortisone injection. She may continue to use Lodine at 400 mg twice daily as needed. Hospital Outpatient Visit on 05/14/2020 Component Date Value Ref Range Status SODIUM 05/14/2020 138 133 - 146 mmol/L Final CHLORIDE 05/14/2020 106 96 - 108 mmol/L Final POTASSIUM 05/14/2020 4.3 3.3 - 5.1 mmol/L Final CO2 05/14/2020 20* 21 - 35 mmol/L Final BUN 05/14/2020 20* 6 - 19 mg/dL Final CREATININE 05/14/2020 0.80 0.5 - 1.5 mg/dL Final GLUCOSE 05/14/2020 94 70 - 99 mg/dL Final CALCIUM 05/14/2020 9.0 8.4 - 10.3 mg/dL Final EGFR 05/14/2020 75 >59 mL/min/1.73m2 Final Estimated glomerular filtration rate calculated using the CKD-EPI equation. ANION GAP 05/14/2020 16 10 - 20 mmol/L Final WBC 05/14/2020 7.39 4.00 - 11.00 K/uL Final Note Reference Range updates to all CBC and Differential results. RBC 05/14/2020 4.84 3.72 - 5.30 M/uL Final HGB 05/14/2020 14.5 11.4 - 15.9 g/dL Final Note updated Reference Ranges for all CBC and Differential results. HCT 05/14/2020 42.9 34.2 - 46.8 % Final PLT 05/14/2020 271 140 - 430 K/uL Final MCV 05/14/2020 88.6 78.0 - 97.0 fL Final MCH 05/14/2020 30.0 25.0 - 33.0 pg Final MCHC 05/14/2020 33.8 32.0 - 36.0 g/dL Final RDW 05/14/2020 13.7 11.0 - 16.0 % Final MPV 05/14/2020 10.5 8.4 - 12.8 fl Final NRBC 05/14/2020 0.00 0 /100 WBCs Final ABSOLUTE NRBC 05/14/2020 0.00 0 K/uL Final HEMOGLOBIN A1C 05/14/2020 6.0* 4.3 - 5.8 % Final IRON 05/14/2020 126 30 - 160 ug/dL Final IRON BINDING CAPACITY 05/14/2020 341 228 - 428 ug/dL Final TRANSFERRIN SATURAT. 05/14/2020 37 15 - 50 % Final FERRITIN 05/14/2020 64 13 - 150 ug/L Final Hospital Outpatient Visit on 04/11/2020 Component Date Value Ref Range Status IRON 04/11/2020 127 30 - 160 ug/dL Final IRON BINDING CAPACITY 04/11/2020 359 228 - 428 ug/dL Final TRANSFERRIN SATURAT. 04/11/2020 35 15 - 50 % Final FERRITIN 04/11/2020 66 13 - 150 ug/L Final Assessment & Plan (01/10/2020 8:41 AM EDT): Reviewed MRI, orthopedic consult and x-ray. She does have both significant osteoarthritis as well as a meniscal tear. She does have mild pain but nowhere near that it was initially. She has no locking or giving way. There is no instability. As we discussed today, I feel that she should wait until she needs to and then see an orthopedic surgeon for total knee arthroplasty. In the meantime well fitting supportive shoes with good shock absorption, quadricep strengthening, continuance of etodolac at 400 mg daily with increase to twice daily as needed when needed. Risks and benefits of NSAIDs discussed. Weight control discussed. Visco supplementation discussed. All questions answered. 28 minutes spent in direct contact with the patient going over the natural history and treatment of both meniscal tear and knee osteoarthritis. Emotional consequences of pandemic and loneliness and depression were discussed. She will stay on vitamin D3 at 1000 units a day. Admission on 12/09/2019, Discharged on 12/09/2019 Component Date Value Ref Range Status WBC 12/09/2019 8.23 4.00 - 11.00 K/uL Final Note Reference Range updates to all CBC and Differential results. RBC 12/09/2019 4.56 3.72 - 5.30 M/uL Final HGB 12/09/2019 13.7 11.4 - 15.9 g/dL Final Note updated Reference Ranges for all CBC and Differential results. HCT 12/09/2019 39.7 34.2 - 46.8 % Final PLT 12/09/2019 290 140 - 430 K/uL Final MCV 12/09/2019 87.1 78.0 - 97.0 fL Final MCH 12/09/2019 30.0 25.0 - 33.0 pg Final MCHC 12/09/2019 34.5 32.0 - 36.0 g/dL Final RDW 12/09/2019 12.2 11.0 - 16.0 % Final MPV 12/09/2019 9.8 8.4 - 12.8 fl Final NRBC 12/09/2019 0.00 0 /100 WBCs Final ABSOLUTE NRBC 12/09/2019 0.00 0 K/uL Final DIFF METHOD 12/09/2019 Auto Final NEUTS 12/09/2019 57.0 43.0 - 75.0 % Final LYMPHS 12/09/2019 31.1 18.2 - 47.4 % Final MONOS 12/09/2019 8.5 4.00 - 11.00 % Final EOS 12/09/2019 2.2 0.0 - 8.0 % Final BASOS 12/09/2019 1.0 0.0 - 2.0 % Final Granulocytes, immature (%) 12/09/2019 0.2 0.0 - 0.9 % Final ABSOLUTE NEUTS 12/09/2019 4.69 1.80 - 7.70 K/uL Final ABSOLUTE LYMPHS 12/09/2019 2.56 1.00 - 3.10 K/uL Final ABSOLUTE MONOS 12/09/2019 0.70 0.20 - 0.80 K/uL Final ABSOLUTE EOS 12/09/2019 0.18 0.00 - 0.80 K/uL Final ABSOLUTE BASOS 12/09/2019 0.08 0.00 - 0.09 K/uL Final Granulocytes, immature 12/09/2019 0.02 0.00 - 0.05 K/uL Final SODIUM 12/09/2019 141 133 - 146 mmol/L Final CHLORIDE 12/09/2019 102 96 - 108 mmol/L Final POTASSIUM 12/09/2019 4.7 3.3 - 5.1 mmol/L Final CO2 12/09/2019 22 21 - 35 mmol/L Final BUN 12/09/2019 18 6 - 19 mg/dL Final CREATININE 12/09/2019 0.90 0.5 - 1.5 mg/dL Final GLUCOSE 12/09/2019 119* 70 - 99 mg/dL Final CALCIUM 12/09/2019 9.7 8.4 - 10.3 mg/dL Final EGFR 12/09/2019 65 >59 mL/min/1.73m2 Final If patient is black, multiply result by 1.159. Estimated glomerular filtration rate calculated using the CKD-EPI equation. ANION GAP 12/09/2019 22* 10 - 20 mmol/L Final ALKALINE PHOSPHATASE 12/09/2019 72 39 - 117 U/L Final TOTAL BILIRUBIN 12/09/2019 0.4 0.0 - 1.2 mg/dL Final DIRECT BILIRUBIN 12/09/2019 <0.2 0 - 0.3 mg/dL Final Bilirubin (Indirect) 12/09/2019 NOT CALCULATED 0 - 1.5 mg/dL Final AST 12/09/2019 21 0 - 37 U/L Final ALT 12/09/2019 13 0 - 40 U/L Final TOTAL PROTEIN 12/09/2019 7.6 6.5 - 8.0 g/dL Final ALBUMIN 12/09/2019 4.4 3.9 - 4.8 g/dL Final GLOBULIN 12/09/2019 3.2 1 - 4.8 g/dL Final A/G Ratio 12/09/2019 1.38 1.00 - 4.80 RATIO Final COLOR 12/09/2019 Yellow Yellow Final CLARITY 12/09/2019 Clear Final GLUCOSE 12/09/2019 Negative Negative Final BILI 12/09/2019 2+* Negative Final KETONES 12/09/2019 Negative Negative Final SPECIFIC GRAVITY 12/09/2019 1.020 1.005 - 1.030 Final BLOOD 12/09/2019 Negative Negative Final PH 12/09/2019 6.0 5.0 - 8.0 Final Protein-UA 12/09/2019 Negative Negative Final NITRITE 12/09/2019 Negative Negative Final Leukocyte esterase, ur 12/09/2019 1+* Negative Final D-DIMER 12/09/2019 398 <500 ng/mL FEU Final In patients with low to moderate pre-test probability scores for VTE (PE or DVT), a D-Dimer cut-off less than 500 ng/mL (FEU) has a negative predictive value (NPV) of 97 to 100%. Ventricular Rate EKG/MIN 12/09/2019 86 BPM Final Atrial Rate 12/09/2019 86 BPM Final HI Interval 12/09/2019 164 ms Final QRS Duration 12/09/2019 76 ms Final QT Interval 12/09/2019 382 ms Final QTC Interval 12/09/2019 457 ms Final P Manning 12/09/2019 45 degrees Final R Wave Manning 12/09/2019 9 degrees Final T Wave Manning 12/09/2019 23 degrees Final Troponin T-hs Gen5 12/09/2019 <6 0 - 9 ng/L Final Troponin T-hs Gen5 12/09/2019 <6 0 - 9 ng/L Final WBC 12/09/2019 5-10* NONE SEEN /hpf Final RBC 12/09/2019 NONE SEEN NONE SEEN /hpf Final URINE EPITHELIAL 12/09/2019 5-10* NONE SEEN Final MUCUS 12/09/2019 Trace* NONE SEEN /hpf Final BACTERIA 12/09/2019 Trace* NONE SEEN /hpf Final Special Requests 12/09/2019 None Final GRAM STAIN 12/09/2019 Rare WBC'S , NO ORGANISMS SEEN Final Urine Culture 12/09/2019 10,000 to 100,000 colony forming units per mL MIXED JILLIAN (3 OR MORE COLONY TYPES) Culture indicates contamination. Please resubmit if necessary.* Final Hospital Outpatient Visit on 11/16/2019 Component Date Value Ref Range Status SODIUM 11/16/2019 139 133 - 146 mmol/L Final POTASSIUM 11/16/2019 4.2 3.3 - 5.1 mmol/L Final CHLORIDE 11/16/2019 103 96 - 108 mmol/L Final CO2 11/16/2019 20* 21 - 35 mmol/L Final BUN 11/16/2019 21* 6 - 19 mg/dL Final CREATININE 11/16/2019 0.90 0.5 - 1.5 mg/dL Final GLUCOSE 11/16/2019 110* 70 - 99 mg/dL Final ALBUMIN 11/16/2019 4.2 3.9 - 4.8 g/dL Final TOTAL PROTEIN 11/16/2019 7.4 6.5 - 8.0 g/dL Final CALCIUM 11/16/2019 9.3 8.4 - 10.3 mg/dL Final ALKALINE PHOSPHATASE 11/16/2019 62 39 - 117 U/L Final TOTAL BILIRUBIN 11/16/2019 0.5 0.0 - 1.2 mg/dL Final AST 11/16/2019 23 0 - 37 U/L Final ALT 11/16/2019 12 0 - 40 U/L Final GLOBULIN 11/16/2019 3.2 1 - 4.8 g/dL Final EGFR 11/16/2019 65 >59 mL/min/1.73m2 Final If patient is black, multiply result by 1.159. Estimated glomerular filtration rate calculated using the CKD-EPI equation. ANION GAP 11/16/2019 20 10 - 20 mmol/L Final HEMOGLOBIN A1C 11/16/2019 5.4 4.3 - 5.8 % Final FRUCTOSAMINE 11/16/2019 229 200 - 285 mcmol/L Final IRON 11/16/2019 59 30 - 160 ug/dL Final IRON BINDING CAPACITY 11/16/2019 352 228 - 428 ug/dL Final TRANSFERRIN SATURAT. 11/16/2019 17 15 - 50 % Final FERRITIN 11/16/2019 34 13 - 150 ug/L Final Assessment & Plan (10/31/2019 8:57 AM EDT): Painful chronic osteoarthritis and large medial meniscal tear of the right knee is being managed now with a brace, continuance of etodolac 400 mg twice daily and this and relative rest. I reviewed the consultation from the orthopedic surgeon in [place] who recommended total knee arthroplasty rather than an arthroscopic repair because of her longstanding severe osteoarthritis in that knee and I agree with this. In the meantime she has been successful in losing weight which she will continue and doing exercises to strengthen her quads. Assessment & Plan (10/04/2019 10:07 AM EDT): Surgery not recommended by [facility]. Pt given brace Assessment & Plan (07/05/2019 10:25 AM EST): MRI scheduled for later this week. Following with Dr. Naranjo. Assessment & Plan (10/27/2018 9:48 AM EDT): Appears to be lateral knee strain may be iliotibial band syndrome. Advised relative rest, continuance of contrast baths and application of Arnica gel 3-4 times daily. We will give it 1 more week and if no further improvement I am going to do an x-ray and likely inject the ITB insertion. She agrees with this plan will get back to me by phone call if necessary. Osteopenia 10/27/2018 07/10/2023 Assessment & Plan (03/06/2021 10:29 AM EDT): Bone density reviewed. Fall and fracture prevention strategies discussed. Continue vitamin D3 at 1000 units daily. Results for orders placed or performed during the hospital encounter of 02/18/21 (from the past 67398 hour(s)) DXA Monitoring Narrative This is a 70-year-old postmenopausal white female with perceived height loss of under 1 inch. She is not on replacement therapy. Comparison is made to baseline study of December 2018. Evaluation of the lumbar spine and hips was performed and appears to be technically adequate. Total bone mineral density in the L1-L4 vertebral bodies was calculated at 1.103 gm/cm2 with a T score of 0.5. This falls within the WHO classification of normal. Since prior study and increase in density of 2.5% is statistically significant at the 95% confidence interval. Total bone mineral density in the right proximal femur was calculated at 1.135 gm/cm2 with a T-score of 1.6 falling within the WHO classification of normal. Since prior study there is no significant change. Right femoral neck bone mineral density was calculated at 0.884 gm/cm2 with a T-score of 0.3 falling within the WHO classification of normal. Total bone mineral density in the left proximal femur was calculated at 1.071 gm/cm2 with a T-score of 1.1 falling within the WHO classification of normal. Since prior study there is decrease in density of 4.7% which is significant. Bone mineral density in the left femoral neck was calculated at 0.762 gm/cm2 with a T-score of -0.8 falling within the WHO classification of normal. Impression Overall normal bone mineral density. Mixed pattern of increased and decreased density since prior study of 2018. Assessment & Plan (01/07/2021 9:03 AM EDT): Reviewed previous bone densitometry and in light of new wrist fracture will order another one as it has been over 2 years. Fall and fracture prevention strategies and compliance with vitamin D were discussed as well. Results for orders placed or performed during the hospital encounter of 12/29/18 (from the past 28513 hour(s)) DXA Monitoring Narrative COMPARISON: None FINDINGS: This is a 68-year-old postmenopausal white female who reports 1 inch of perceived height loss. Evaluation of the lumbar spine and hips was performed and felt to be technically adequate. Total bone mineral density in the L1-L4 vertebral bodies was calculated at 1.076 gm/cm2 with a T-score of 0.3 falling within the WHO classification of normal. Z- score of 2.3. Total bone mineral density in the right hip was calculated at 1.151 gm/cm2 with a T-score of 1.7 falling within the WHO classification of normal. Z-score of 3.2. Total bone mineral density in the left hip was calculated at 1.124 gm/cm2 with a T-score of 1.5 falling within the WHO classification of normal. Z-score of 2.9. Impression Normal bone mineral density. POS - [id number] Assessment & Plan (07/10/2020 8:47 AM EST): Bone densitometry reviewed. New bone densitometry will be done next year. Fall and fracture prevention strategies discussed. Compliance with vitamin D3 at 1000 units daily encouraged. Assessment & Plan (10/27/2018 9:49 AM EDT): Prior bone density indicated spinal osteopenia. No fractures in the interim. She is compliant with vitamin D3 1000 units daily. Another bone density will be ordered and I will review and get back to her. If no worse then she will continue as she is doing with a repeat density in 5 years. Wound of skin 09/04/2018 04/01/2019 Assessment & Plan (09/04/2018 9:41 AM EST): Miladis presents for a lip sore that has been going on for the past 8 days. She was advised to use the above antibiotic cream to the site and I also added keflex as she is beginning to get cellulitis of the chin as well. I advised her to call for a mononitrotoluene operator if the lip sore does not improve in the next 10 days. She will call if there is any other issues. She understands and agrees. Bladder pain 07/13/2018 11/21/2020 Overview (09/23/2018): Contaminated UCs, no apparent infection. Normal urine cytology. Suspect pain due to atrophic changes Assessment & Plan (09/23/2018 9:26 AM EDT): Discussed topical estrogen. Patient declines, states symptoms are not bothering her that much now. I did encourage her to move forward with pelvic floor physical therapy Assessment & Plan (08/12/2018 1:36 PM EST): Pt w significant prolapse. Still want to evaluate urine w micro UA, sediment & Cytology. Also referred for pelvic floor PT Assessment & Plan (07/13/2018 6:46 PM EST): She was unable to give urine sample in office. She will drop sample off at lab. We will contact her with results Rash and other nonspecific skin eruption 04/13/2018 07/05/2019 Assessment & Plan (04/13/2018 7:22 PM EDT): I do think this could be a slowly resolving inflammatory response to a bug bite. I have her use topical steroid on it for up to 2 weeks. If it does not resolve then I will have her come in for cryotherapy since differential diagnosis is actinic keratosis. Depression 03/23/2018 01/03/2020 Assessment & Plan (10/31/2019 8:58 AM EDT): Given the isolation of the epidemic and her inability to see her grandchildren and family she is experiencing some memory issues and some depression but not severe. No suicidal ideation. Her appetite is fair. We had a discussion about this today. If this worsens she is to contact her primary care physician. Consideration may be given to increasing her low dose of fluoxetine. All of her questions were answered. Assessment & Plan (04/01/2019 9:22 AM EDT): She is doing well, continue current dose of fluoxetine. Assessment & Plan (03/23/2018 6:43 PM EDT): Continue prozac History of chest pain 03/23/20182023 Overview (04/13/2018): Admit to [facility] 03/23-03/24. Presented with 3 days squeezing left-side chest discomfort. Serial ECGs and troponins negative, myocardial perfusion imaging showed preserved EF, no acute, significant ischemic findings however could not exclude very minimal inferoapical ischemia versus bowel artifact. On treadmill stress test, she showed reduced functional capacity to 6.1 METS; therefore, decision was made to add low dose metoprolol 25mg daily and ASA 81mg. Patient did not start either of these medications. Patient reported her symptoms resolved with Prilosec Assessment & Plan (04/13/2018 7:19 PM EDT): Her cardiac workup was overall quite reassuring. Her symptoms resolved with Prilosec use. She will continue the PPI for now. We discussed rationale behind the addition of the beta-nicol. She does not want to use it. She does agree to use baby aspirin daily and also agrees to change to a higher potency statin. She will stop simvastatin and start Lipitor. She will continue DAMARIS inhibitor. Assessment & Plan (03/23/2018 7:19 PM EDT): Patient states that over the course of the last 2 weeks she has had intermittent dizziness up until yesterday where she developed left-sided chest pain with radiation into her jaw with associated shortness of breath and diaphoresis. She notes that this has been constant since yesterday with no relief until today when she received nitroglycerin on the floor. Currently she is chest pain-free. She does however mention that she has had a stress test roughly 3 years ago which was noted to be negative. Differential diagnosis ACS versus costochondritis versus PE. - d-dimer -Troponins x 3 -Echocardiogram -Cardiology consult -Lipid panel Infection of left olecranon bursa 11/03/2017 01/12/2018 Assessment & Plan (11/03/2017 9:03 AM EDT): She has been seen by her primary care physician and given cephalexin to take and she is completing this one week course for presumed left olecranon septic bursitis and I agree with this plan. The infection seems to be resolving. Encounters Date Type Department Care Team Description 04/18/2025 Telephone [facility] at [address] [address] Kathia Quesada PA-C TP orders (BN) 04/13/2025 12:15 PM EDT - 04/13/2025 11:59 PM EDT Hospital Encounter [facility] [address] [place] [address] Fifi Alan FNP Discharge Disposition: Home or Self Care 03/21/2025 Telephone [facility] at [address] [address] Reny Mansfield, RN Labs 03/15/2025 12:10 PM EDT - 03/15/2025 11:59 PM EDT Hospital Encounter [facility] [address] [place] [address] Fifi Alan FNP Discharge Disposition: Home or Self Care 03/15/2025 10:30 AM EDT Office Visit [address] [address] Celsa Guthrie FNP Medicare annual wellness visit, subsequent (Primary Dx) 02/21/2025 1:30 PM EDT Office Visit [address] [address] Kem Amaya DO Acute bilateral low back pain with left-sided sciatica (Primary Dx); Numbness and tingling of left leg; Type 2 diabetes mellitus without complication, without long-term current use of insulin; Class 1 obesity due to excess calories with serious comorbidity and body mass index (BMI) of 32.0 to 32.9 in adult 02/21/[address] [address] Kem Amaya DO PSSP referral/appt 02/17/2025 11:00 AM EDT Office Visit [facility] [address] [place] [address] Nata Garibay MD Spondylosis of lumbar region without myelopathy or radiculopathy (Primary Dx); Hereditary hemochromatosis; Type 2 diabetes mellitus without complication, without long-term current use of insulin; Gastroesophageal reflux disease without esophagitis; Class 1 obesity due to excess calories with serious comorbidity and body mass index (BMI) of 32.0 to 32.9 in adult; 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 (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) 02/17/2025 Telephone [facility] [address] [place] [address] Marilin Pepper CNP 02/16/[address] [address] Kem Amaya DO 02/15/2025 6:55 AM EDT - 02/15/2025 11:59 PM EDT Hospital Encounter [facility] [address] [place] [address] Kem Amaya, Discharge Disposition: Home or Self Care 02/09/2025 11:15 AM EDT - 02/09/2025 11:59 PM EDT Hospital Encounter [facility] [address] [place] [address] Fifi Alan FNP Discharge Disposition: Home or Self Care 02/09/[address] [address] Jaylyn Chavira CNP Medication Refill 01/25/[address] [address] Mayra Villa Medication Prior Authorization (pregabalin (LYRICA) 50 MG capsule PA) 01/24/2025 2:30 PM EDT Office Visit [address] [address] Kem Amaya DO Numbness and tingling of left leg (Primary Dx); Edema of both legs; Acute bilateral low back pain with left-sided sciatica; Essential hypertension 01/24/2025 Procedure Pass [facility], [address] [address] from Last 3 Months Immunizations Immunization Administration Dates Next Due COVID-19 (Pre-04/20) Pfizer Vaccine, mRNA, PF 11/15/2020,10/06/2020 INFLUENZA, SPLIT VIRUS, TRIV ALENT W/ PRESERVATIVE IM 05/27/2011 Influenza High-Dose Quadriva lent Preservative Free IM 04/22/2023,05/14/2022,03/18/2021 Influenza High-Dose Trivalen t Preservative Free IM 03/15/2025,03/24/2024,03/25/2018,03/18,04/08/2015 Influenza trivalent preserva tive free intradermal 03/30/2013,05/04/2012 Influenza, Unspecified Formulation 03/30,04/11/2019,05/20/2010,03/23 Pneumococcal conjugate PCV13 10/14/2017 Pneumococcal polysaccharide PPSV23 12/20/2015 Td (adult) 5 Lf Tetanus Toxo id, PF, Adsorbed 11/20/2005 Td (adult),2 Lf Tetanus Toxo id, PF, Adsorbed 06/10/2022 Tdap 12/30/2011 Zoster live 02/25/2011 Zoster recombinant 08/13/2019,05/14/2019 Family History Medical History Relation Comments Heart attack Brother 1 Alcohol abuse Father Breast cancer Maternal Aunt Heart attack Mother Hypertension Mother Breast cancer Sister 1 Ulcerative colitis Sister 2 James's thyroiditis Sister 3 No Known Problems Son 1 No Known Problems Son 2 Hernia Son 3 Relation Status Comments Brother 1 Alive Brother 2 Alive Brother 3 Alive Father Maternal Aunt Mother Alive Sister 1 Alive Sister 2 Alive Sister 3 Alive Sister 4 Alive Son 1 Alive Son 2 Alive Son 3 Alive Social History Tobacco Use Types Packs/Day Years Used Date Smoking Tobacco: Never Smokeless Tobacco: Never Tobacco Cessation:Counseling Given: Not Answered Comments: smoked - for 30 yrs Alcohol Use Standard Drinks/Week Comments Yes 0 (1 standard drink = 0.6 oz pur e alcohol) seldom Education Answer Date Recorded Are you interested in more education? Not on anila e 10/23/2022 Are you concerned about learning? Not on file 10/23/2022 No 10/23/2022 No 10/23/2022 Digital Access Answer Date Recorded No 11/18/2022 No 11/18/2022 Reliable internet access at home? Not on file 11/18/2022 Device with a working camera? Not on file Intimate Partner Violence Answer Date R ecorded Are you denied basic needs s uch as food, clothing, or medical care? No 03/15/2025 In the past 12 months have y ou been in a relationship with a person who hurts, threatens, or tries to control you? No 03/15/2025 Are you denied basic needs s uch as food, clothing, or medical care? No 03/15/2025 In the past 12 months have y ou been in a relationship with a person who hurts, threatens, or tries to control you? No 03/15/2025 Comments No Sex and Gender Information Value Date Recorded Sex Assigned at Female 10/04/2017 7:23 PM EDT Legal Sex Female 10:02 PM EDT Gender Identity Female 10/04/2017 7:23 PM EDT Sexual Orientation Straight 10/04/2017 7: 23 PM EDT Last Filed Vital Signs Vital Sign Reading Time Taken Comments Blood Pressure 118/62 03/15/2025 10:40 AM EDT Pulse 80 03/15/2025 10:40 AM EDT Temperature 36.5 C (97.7 F) 03/15/2025 10:40 AM EDT Respiratory Rate 18 12/28/2024 6:14 PM EDT Oxygen Saturation 97% 03/15/2025 10:40 AM EDT Inhaled Oxygen Concentration - - Weight 90.5 kg (199 lb 9.6 oz) 03/15/2025 10:40 AM EDT Height 165.1 cm (5' 5 ) 03/15/2025 10:40 AM EDT Body Mass Index 33.22 03/15/2025 10:40 AM EDT Plan of Treatment Upcoming Encounters Date Type Department Care Team (Late st Contact Info) Description 10/03/2024 Procedure Pass [facility], [facility] [address] [place] [address] 09/11/2025 12:30 PM EDT Office Visit [facility] [address] [place] [address] Jaylyn Chavira CNP [address] [facility], [address] [place] [address] 09/15/2025 10:00 AM EDT Office Visit [facility] [address] [place] [address] Titus Arias DO [address] [place] [address] [email or web address] 09/29/2025 8:30 AM EDT Appointment [facility], [address] [address] Jaylyn Chavira CNP [address] [facility], [address] [place] [address] Health Maintenance Due Date Last Done Comments COLOGUARD 1994 FIT TEST 1994 FOBT 1994 SIGMOIDOSCOPY 1994 VIRTUAL COLONOSCOPY 1994 DIABETIC EYE EXAM 11/30/2024 12/01/2023 RSV VACCINE (1 - 1-dose 75+ series) 2024 COVID-19 VACCINE ( season) 2025 04/07/2022, 07/01/2021, 11/15/2020, Additional history exists BLOOD PRESSURE 09/12/2025 03/15/2025 MAMMOGRAM 09/27/2025 09/27/2024, 06/29, 07/11/2022, Additional history exists HEMOGLOBIN A1C 10/12/2025 04/13/2025, 11/29, 06/03/2024, Additional history exists CREATININE LEVEL 03/15/2026 03/15/2025, , 10/14/2024, Additional history exists DEPRESSION SCREENING 03/15/2026 03/15/2025 POTASSIUM LEVEL 03/15/2026 03/15/2025, 0608/2024, 10/14/2024, Additional history exists COLONOSCOPY 08/16/2026 08/16/2021, 05/15/2016 COLORECTAL CANCER SCREENING 08/16/2026 Adult Td,Tdap Booster 06/10/2032 06/10/2022 , 12/30/2011, 11/20/2005 FOLLOW UP BONE DENSITY TESTING 07/01/2034 07/01/2024, 02/18/2021, 12/29/2018, Additional history exists HEPATITIS C SCREENING Completed 07/19/2013 PNEUMOCOCCAL VACCINES (50+ years) Completed 10/14/2017, 12/20/2015 ZOSTER VACCINES Completed 08/13/2019, 04/29, 02/25/2011 OSTEOPOROSIS SCREENING INITIAL (ONE-TIME) Completed 07/01/2024, 02/18/2021, 12/29/2018 SMOKING STATUS SCREENING (Once After 26 Yrs) Completed 02/21/2025 INFLUENZA VACCINE Completed 03/15/2025, , 04/22/2023, Additional history exists HEPATITIS A VACCINES Aged Out No long er eligible based on patient's age to complete this topic HIB VACCINES Aged Out No longer eligi ble based on patient's age to complete this topic MENINGOCOCCAL VACCINES (ACWY) Aged Out No longer eligible based on patient's age to complete this topic MENINGOCOCCAL VACCINES (B) Aged Out N o longer eligible based on patient's age to complete this topic Medical Devices Not on file Procedures Procedure Name Priority Date/Time Associated Diagnosis Comments HEMOGLOBIN A1C Routine 04/13/2025 12:15 PM EDT Type 2 diabetes mellitus without complication, without long-term current use of insulin FERRITIN Routine 04/13/2025 12:15 PM EDT Hereditary hemochromatosis COMPREHENSIVE METABOLIC PANEL Routine 03/15/2025 12:11 PM EDT Spondylosis of lumbar region without myelopathy or radiculopathy Hereditary hemochromatosis 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 (NSAID) C-REACTIVE PROTEIN Routine 03/15/2025 12 :11 PM EDT Spondylosis of lumbar region without myelopathy or radiculopathy Hereditary hemochromatosis 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 (NSAID) SEDIMENTATION RATE (ESR) Routine 03/15/2025 12:11 PM EDT Spondylosis of lumbar region without myelopathy or radiculopathy Hereditary hemochromatosis retirement current use of non-steroidal anti-inflammatories (NSAID) CBC AND DIFFERENTIAL Routine 03/15/2025 12:11 PM EDT Spondylosis of lumbar region without myelopathy or radiculopathy Hereditary hemochromatosis retirement current use of non-steroidal anti-inflammatories (NSAID) FERRITIN Routine 03/15/2025 12:11 PM EDT Hereditary hemochromatosis MRI LUMBAR SPINE (NEURO) WITHOUT CONTRAST Routine 02/15/2025 7:37 AM EDT Numbness and tingling of left leg Acute bilateral low back pain with left-sided sciatica FERRITIN Routine 02/09/2025 11:15 AM EDT Hereditary hemochromatosis BI MAMMOGRAM SCREENING WITH TOMOSYNTHESIS WITH CAD (BILATERAL) Routine 09/27/2024 10:27 AM EDT Breast screening BD DXA AXIAL (SPINE) WITH HIP Routine 07/01/2024 9:19 AM EST Postmenopausal HM DIABETES EYE EXAM FOR RESULT ENTRY ONLY Routine 12/01/2023 9:17 PM EDT ENDOSCOPY, COLON 08/16/2021 8:44 AM EST OUTSIDE HEPATITIS C VIRUS SCREENING Routine 07/19/2013 from Last 3 Months or Most Recently Relevant to Health Maintenance Results * (ABNORMAL) Hemoglobin A1c (04/13/2025 12:15 PM EDT) HEMOGLOBIN A1C 7.4(H) 4.3 - 5.8 % [facility] Blood 04/13/2025 12:1 5 PM EDT 04/13/2025 12:19 PM EDT us Kem Amaya DO LAB BLOOD ORDERABLES Final Resul t [address] [address] * Ferritin (04/13/2025 12:15 PM EDT) Only the most recent of3 resultswithin the time period is included. FERRITIN 149 13 - 150 ug/L [facility] Blood 04/13/2025 12:1 5 PM EDT 04/13/2025 12:19 PM EDT us Fifi Alan CAMP ATTENDANT LAB BLOOD ORDERABLES Final Re sult Performing Organization Address City/[facility]/ZIP Co de Phone Number [address] [address] * (ABNORMAL) Comprehensive metabolic panel (03/15/2025 12:11 PM EDT) SODIUM 139 133 - 146 mmol/L [facility] POTASSIUM 5.0 3.3 - 5.1 mmol/L [facility] CHLORIDE 105 96 - 108 mmol/L [facility] CO2 22 21 - 35 mmol/L [facility] BUN 35(H) 6 - 19 mg/dL [facility] CREATININE 0.90 0.5 - 1.5 mg/dL [facility] GLUCOSE 119(H) 70 - 99 mg/dL [facility] ALBUMIN 4.4 3.9 - 4.8 g/dL [facility] TOTAL PROTEIN 7.8 6.5 - 8.0 g/dL [facility] CALCIUM 9.7 8.4 - 10.3 mg/dL [facility] ALKALINE PHOSPHATASE 68 39 - 117 U/L [facility] TOTAL BILIRUBIN 0.5 0.0 - 1.2 mg/dL [facility] AST 38(H) 0 - 37 U/L [facility] ALT 24 0 - 40 U/L [facility] GLOBULIN 3.4 1 - 4.8 g/dL [facility] EGFR 67 >59 mL/min/1.7 3m2 [facility] Comment:Estimated glomerular filtration rate calculated using the CKD-EPI refit equation. ANION GAP 17 10 - 20 mmol/L [facility] Blood 03/15/2025 12:1 1 PM EDT 03/15/2025 12:12 PM EDT Nata Garibay MD LAB BLOOD ORDERABLES Fin al Result [address] [address] * (ABNORMAL) Sedimentation rate (ESR) (03/15/2025 12:11 PM EDT) ESR 41(H) 0 - 30 mm/h [facility] Blood 03/15/2025 12:1 1 PM EDT 03/15/2025 12:12 PM EDT us Nata Garibay MD LAB BLOOD ORDERABLES Fin al Result Performing Organization Address City/[facility]/ZIP Co de Phone Number [address] [address] * (ABNORMAL) CBC and differential (03/15/2025 12:11 PM EDT) WBC 6.39 4.00 - 11.00 K/uL [facility] RBC 4.78 4.00 - 5.20 M/uL [facility] HGB 13.6 12.0 - 16.0 g/dL [facility] HCT 42.8 36.0 - 46.0 % [facility] PLT 288 150 - 450 K/uL [facility] MCV 89.5 80.0 - 100.0 fL [facility] MCH 28.5 27.0 - 31.0 pg [facility] MCHC 31.8(L) 32.0 - 36.0 g/dL [facility] RDW 13.0 11.5 - 14.5 % [facility] MPV 10.4 8.4 - 12.0 fL [facility] NRBC 0.00 0.00 /100 WBCs [facility] ABSOLUTE NRBC 0.00 0.00 K/uL [facility] DIFF METHOD Auto [facility] NEUTS 61.6 48.0 - 76.0 % [facility] LYMPHS 25.4 18.0 - 41.0 % [facility] MONOS 9.7 4.0 - 11.0 % [facility] EOS 2.2 0.0 - 5.0 % [facility] BASOS 0.9 0.0 - 1.5 % [facility] Granulocytes, immature (%) 0.2 0.0 - 0.9 % [facility] ABSOLUTE NEUTS 3.94 1.92 - 7.60 K/uL [facility] ABSOLUTE LYMPHS 1.62 0.72 - 4.10 K/uL [facility] ABSOLUTE MONOS 0.62 0.16 - 1.10 K/uL [facility] ABSOLUTE EOS 0.14 0.00 - 0.50 K/uL [facility] ABSOLUTE BASOS 0.06 0.00 - 0.15 K/uL [facility] Granulocytes, immature 0.01 0.00 - 0.09 K/uL [facility] Blood 03/15/2025 12:1 1 PM EDT 03/15/2025 12:12 PM EDT us Nata Garibay MD LAB BLOOD ORDERABLES Fin al Result Performing Organization Address City/State/[facility] Co de Phone Number [address] [address] * (ABNORMAL) C-Reactive Protein (03/15/2025 12:11 PM EDT) C REACTIVE PROTEIN 4.8(H) 0.0 - 4.0 mg/L [facility] Blood 03/15/2025 12:1 1 PM EDT 03/15/2025 12:12 PM EDT us Nata Garibay MD LAB BLOOD ORDERABLES Fin al Result [facility] [address] [place] [address] * MRI LUMBAR SPINE (NEURO) WITHOUT CONTRAST (02/15/2025 7:37 AM EDT) Anatomical Region Laterality Modality L-spine Magnetic Resonan ce 02/16/2025 9:08 AM EDT Impressions 02/16/2025 9:14 AM EDT 1. Severe spinal canal stenosis at L4-5 secondary to grade 1 anterolisthesis, severe facet arthropathy, and ligamentum flavum thickening. Narrative 02/16/2025 9:14 AM EDT MRI LUMBAR SPINE (NEURO) WITHOUT CONTRAST Referring clinician's provided indication for this examination in Epic: * Lumbar radiculopathy, > 6 wks; ongoing low back pain, tingling in left leg- gabapentin was not helpful. TECHNIQUE: MRI LUMBAR SPINE (NEURO) WITHOUT CONTRAST Multi-sequence, multi-planar MRI of the lumbar spine was performed without intravenous contrast. COMPARISON: XR LUMBOSACRAL SPINE 2-3 VIEWS FINDINGS: LUMBAR SPINE: Alignment and Vertebrae: Grade 1 degenerative anterolisthesis at L4-5. No compression fracture. Marrow: No suspicious bone marrow replacing lesion. Hemangiomas are noted in the L4 and L5 vertebral bodies. Discs and Endplates: Multilevel disc desiccation and small anterior endplate osteophytes. Disc heights in the lumbar spine are relatively maintained. Moderate disc height loss anteriorly at T11-12. No endplate edema. Conus: The conus is normal in signal and terminates at L1-2. Soft Tissues: No paraspinal mass, fluid collection, or edema. Other Findings: None. Findings by level: T11-T12: Small posterior disc bulge. No spinal canal or foraminal stenosis. T12-L1: No spinal canal or foraminal stenosis. L1-L2: No spinal canal or foraminal stenosis. L2-L3: No spinal canal or foraminal stenosis. Mild facet arthropathy. L3-L4: No spinal canal or foraminal stenosis. Mild facet arthropathy. L4-L5: Anterolisthesis, disc bulging, severe facet arthropathy, ligamentum flavum thickening. Severe spinal canal stenosis. Mild bilateral foraminal stenosis. L5-S1: Disc bulging with a small left foraminal disc protrusion. Mild facet arthropathy. No significant spinal canal stenosis. Mild left foraminal stenosis. Procedure Note Terrance Underwood MD - 02/16/2025 MRI LUMBAR SPINE (NEURO) WITHOUT CONTRAST Referring clinician's provided indication for this examination in Epic: *Lumbar radiculopathy, > 6 wks; ongoing low back pain, tingling in leftleg- gabapentin was not helpful. TECHNIQUE: MRI LUMBAR SPINE (NEURO) WITHOUT CONTRAST Multi-sequence, multi-planar MRI of the lumbar spine was performed withoutintravenous contrast. COMPARISON: XR LUMBOSACRAL SPINE 2-3 VIEWS FINDINGS: LUMBAR SPINE: Alignment and Vertebrae: Grade 1 degenerative anterolisthesis at L4-5. Nocompression fracture. Marrow: No suspicious bone marrow replacing lesion. Hemangiomas are notedin the L4 and L5 vertebral bodies. Discs and Endplates: Multilevel disc desiccation and small anteriorendplate osteophytes. Disc heights in the lumbar spine are relativelymaintained. Moderate disc height loss anteriorly at T11-12. No endplateedema. Conus: The conus is normal in signal and terminates at L1-2. Soft Tissues: No paraspinal mass, fluid collection, or edema. Other Findings: None. Findings by level: T11-T12: Small posterior disc bulge. No spinal canal or foraminalstenosis. T12-L1: No spinal canal or foraminal stenosis. L1-L2: No spinal canal or foraminal stenosis. L2-L3: No spinal canal or foraminal stenosis. Mild facet arthropathy. L3-L4: No spinal canal or foraminal stenosis. Mild facet arthropathy. L4-L5: Anterolisthesis, disc bulging, severe facet arthropathy, ligamentumflavum thickening. Severe spinal canal stenosis. Mild bilateral foraminalstenosis. L5-S1: Disc bulging with a small left foraminal disc protrusion. Mildfacet arthropathy. No significant spinal canal stenosis. Mild leftforaminal stenosis. IMPRESSION: 1. Severe spinal canal stenosis at L4-5 secondary to grade 1anterolisthesis, severe facet arthropathy, and ligamentum flavumthickening. Kem Amaya DO IMG MR XSPECIALTY Final Result * BI MAMMOGRAM SCREENING WITH TOMOSYNTHESIS WITH CAD (BILATERAL) (09/27/2024 10:27 AM EDT) Anatomical Region Laterality Modality Breast Left, Breast Right, Breast Bilateral Bila teral Mammography 09/27/2024 4:37 PM EDT Impressions 09/27/2024 4:37 PM EDT No mammographic evidence of malignancy in either breast. Annual screening mammography is recommended. BI-RADS 1 NEGATIVE The patient will be notified of the results and recommendations. Narrative 09/27/2024 4:37 PM EDT BI MAMMOGRAM SCREENING WITH TOMOSYNTHESIS WITH CAD (BILATERAL) Additional patient information: Screening. COMPARISON: Comparison is made with relevant prior imaging. Breast composition: There are scattered areas of fibroglandular density. FINDINGS: No abnormal masses, suspicious calcifications, or other significant findings are identified mammographically in either breast. Procedure Note Selina Randolph MD - 09/27/2024 BI MAMMOGRAM SCREENING WITH TOMOSYNTHESIS WITH CAD (BILATERAL) Additional patient information: Screening. COMPARISON: Comparison is made with relevant prior imaging. Breast composition: There are scattered areas of fibroglandular density. FINDINGS: No abnormal masses, suspicious calcifications, or other significantfindings are identified mammographically in either breast. IMPRESSION: No mammographic evidence of malignancy in either breast. Annual screening mammography is recommended. BI-RADS 1 NEGATIVE The patient will be notified of the results and recommendations. Jaylyn Cait MOLD WORKER IMG MG EXAMS Final Result * BD DXA AXIAL (SPINE) WITH HIP (07/01/2024 9:19 AM EST) Anatomical Region Laterality Modality Bone Density Bone Density 07/01/2024 9:17 AM EST Impressions 07/01/2024 9:20 AM EST Interpretation: Normal bone mineral density. Narrative 07/01/2024 9:20 AM EST Referred By: NATA GARIBAY I Indications: Postmenopausal Scanner: [employer] A with serial# of [id number] located at [facility] Bone Density Scan (DXA) 07/01/24 Details of prior DXA scans are available by clicking View Image BMD T- Z- Skeletal Site gm/cm2 score score BMD Change Since Prior Scan ------ ----- ----- PA Spine (L1 L2 L4) 1.048 0.10 2.50 -0.019 (stable) since 02/18/2021 Total Hip (Left) 1.131 1.50 3.30 0.060 (5.6%)* since 02/18/2021 Femoral Neck (Left) 0.793 -0.50 1.60 0.031 (4.1%)* since 02/18/2021 ------ ----- ----- * Denotes significant change when >= 0.022 g/cm2 for the spine, 0.027 g/cm2 for the total hip, 0.029 g/cm2 for the femoral neck. Interpretation: Normal bone mineral density. Technical Quality: Imaging of all sites was of adequate quality.NOTE: We newly excluded one or more vertebrae. To allow comparisons with prior tests, we recalculated the total BMD of all prior spine tests after excluding the same vertebra(e). FRAX: A FRAX(r) score is not provided because the patient has normal bone density. Additional Information: -World Health Organization criteria classify adults based on lowest T-score at PA spine, hip or forearm: Normal (T-score >= -1.0), Osteopenia (T-score between -1 and -2.5), or Osteoporosis (T-score <= -2.5). At [facility], T-scores are compared to peak bone density of a young white gender matched reference population. - For premenopausal women and men under the age of 50, Z-scores (comparison to age, gender, and ethnicity matched reference population) are used: Above expected range for age (Z-score >= 2.0), Within expected range of age (Z-score 1.9 to -1.9), or Below expected range for age (Z-score <= -2.0). - The Bone Health and Osteoporosis Foundation recommends that treatment be considered in men aged more than 50 years and in postmenopausal women with ANY of the following: Prior hip or vertebral fractures; T-score of <= -2.5 at the PA spine or hip; or 10 year fracture probability by FRAX of >= 3% for the hip or >= 20% for major osteoporotic fracture. - The FRAX algorithm (https://www.ilda.ac.uk/FRAX/tool.aspx) is designed to predict 10-year fracture risk in treatment-naive adults between the ages of 40 and 90. It is not intended to be used in those receiving pharmacologic osteoporosis treatment. - Including race/ethnicity in the generation of T- or Z-scores or in the FRAX calculation is complicated, and currently undergoing active review to ensure that we can give patients the best information on their risk of fracture. -Some prior studies may not be compatible with our comparison software. -Click on View Full Report to see subsequent pages with images and prior bone density results. 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 Bone Density Scan (DXA) 07/01/24 Details of prior DXA scans are available by clicking View Image BMD T- Z- Skeletal Site gm/cm2 score score BMD Change Since Prior Scan ------ ----- PA Spine (L1 L2 L4) 1.048 0.10 2.50 -0.019 (stable) since02/18/2021 Total Hip (Left) 1.131 1.50 3.30 0.060 (5.6%)* since02/18/2021 Femoral Neck (Left) 0.793 -0.50 1.60 0.031 (4.1%)* 02/18/2021 ------ ----- * Denotes significant change when >= 0.022 g/cm2 for the spine, 0.027g/cm2 for the total hip, 0.029 g/cm2 for the femoral neck. Interpretation: Normal bone mineral density. Technical Quality: Imaging of all sites was of adequate quality.NOTE: We newly excluded one or more vertebrae. To allow comparisons with priortests, we recalculated the total BMD of all prior spine tests after excluding the same vertebra(e). FRAX: A FRAX(r) score is not provided because the patient has normal bone density. Additional Information: -World Health Organization criteria classify adults based on lowestT-score at PA spine, hip or forearm: Normal (T-score >= -1.0), Osteopenia (T-score between -1 and -2.5), or Osteoporosis (T-score <= -2.5). At [facility], T-scores are compared to peak bone density of a young white gender matched reference population. - For premenopausal women and men under the age of 50, Z-scores(comparison to age, gender, and ethnicity matched reference population) are used:Above expected range for age (Z-score >= 2.0), Within expected range of age (Z-score 1.9 to -1.9), or Below expected range for age (Z-score <= -2.0). - The Bone Health and Osteoporosis Foundation recommends that treatment be considered in men aged more than 50 years and in postmenopausal women with ANY of the following: Prior hip or vertebral fractures; T-score of <= -2.5 at the PA spine or hip; or 10 year fracture probability by FRAX of >= 3%for the hip or >= 20% for major osteoporotic fracture. - The FRAX algorithm (https://www.ilda.ac.uk/FRAX/tool.aspx) is designed to predict 10-year fracture risk in treatment-naive adultsbetween the ages of 40 and 90. It is not intended to be used in those receiving pharmacologic osteoporosis treatment. - Including race/ethnicity in the generation of T- or Z-scores or in the FRAX calculation is complicated, and currently undergoing active review to ensure that we can give patients the best information on their risk of fracture. -Some prior studies may not be compatible with our comparison software. -Click on View Full Report to see subsequent pages with images and prior bone density results. Reviewed By: Jay Oseguera MD on 07/01/2024 09:20:32 IMPRESSION: Interpretation: Normal bone mineral density. Nata Garibay MD IM BD BONE DENSITY DEXA Final Result * DIABETES EYE EXAM FOR RESULT ENTRY ONLY (12/01/2023 9:17 PM EDT) Historical Provider [facility] MAINTENANCE Edited Result - Final * ENDOSCOPY, COLON (08/16/2021 8:44 AM EST) Narrative Transcriptions Ron Love MD - 08/16/2021 8:44 AM EST Patient Name: Miladis Ramírez Attending MD:: RON LOVE MD Procedure Date: 08/16/2021 8:44 AM Date of : 1950 Age: 70 Admit Type: Outpatient Gender: Female Room: [place] [address] Referring MD: Noelle Alvarado Exam Type: Colonoscopy Indications: High risk colon cancer surveillance: Personalhistory of colonic polyps, Family history of colon cancerin a first-degree relative before age 60 years Medications: Monitored Anesthesia Care Procedure: Informed consent was obtained from the patientafter discussion of the indications, limitations, alternatives, benefits, and risks of the procedure. Risks specifically discussed include but are not limited to medication reactions, missed lesions, bleeding, perforation, or the need for emergent surgery. Throughout the procedure, the patient's blood pressure, pulse, end-tidal CO2, and oxygensaturations were monitored continuously. The Olympus adult variable colonoscope [id number] #[id number] was introduced through the anus and advanced to the cecum, identified by the appendiceal orifice. The Olympus pediatric variable colonoscope [id number] was introduced through the and advanced to. The colonoscopy was performed without difficulty. The patient tolerated the procedure well. The qualityof the bowel preparation was good. Anatomicallandmarks were photographed. Complications: No immediate complications. Estimated blood loss:None. Findings: The perianal and digital rectal examinations were normal. Multiple small and large-mouthed diverticula were found in the sigmoid colon and descending colon. The rectum, recto-sigmoid colon, sigmoid colon, descending colon, splenic flexure, transversecolon, hepatic flexure, ascending colon, cecum,appendiceal orifice, ileocecal valve and rectum (onretroflexion) appeared normal. Retroflexion in the right colon was performed. Impression: - Diverticulosis in the sigmoid colon and in the descending colon. - The rectum, sigmoid colon, descending colon,splenic flexure, transverse colon, hepatic flexure,ascending colon, cecum, rectum (on retroflexion), ileocecal valve, recto-sigmoid colon and appendiceal orificeare normal. - No specimens collected. Recommendation: - Discharge patient to home. - Resume previous diet. - Continue present medications. - Repeat colonoscopy in 5 years for surveillance. - You have diverticulosis so please eat a highfiber diet. RON LOVE MD 08/16/2021 9:22:02 AM This report has been signed electronically. Number of Addenda: 0 Note Initiated On: 08/16/2021 8:44 AM Procedure Code(s): --- Professional --- 44758, Colonoscopy, flexible; diagnostic, including collection of specimen(s) by brushing or washing, when performed (separateprocedure) --- Technical --- 90973, Colonoscopy, flexible; diagnostic, including collection of specimen(s) by brushing or washing, when performed (separateprocedure) Diagnosis Code(s): --- Professional --- Z86.010, Personal history of colonic polyps Z80.0, Family history of malignant neoplasm of digestive organs K57.30, Diverticulosis of large intestine without perforation or abscess without bleeding --- Technical --- Z86.010, Personal history of colonic polyps Z80.0, Family history of malignant neoplasm of digestive organs K57.30, Diverticulosis of large intestine without perforation or abscess without bleeding CPT copyright 2020 [employer]. All rights reserved. The codes documented in this report are preliminary and upon tube pusher reviewmay be revised to meet current compliance requirements. Procedure Date: 08/16/2021 8:44:08 AM [address] [place] [address] Noelle Alvarado CNP GI PROCEDURE ORDERABLES Fi nal Result * Outside Hepatitis C Virus Screening (07/19/2013) Hepatitis C Screening - External Neg Historical Provider LAB BLOOD ORDERABLES Yary l Result from Last 3 Months or Most Recently Relevant to Health Maintenance Insurance MEDICARE PART A & [facility] MEDICARE ENHANCE SUPPLEMENT MEDICARE PART A & [facility] MEDICARE ENHANCE SUPPLEMENT MEDICARE PART A & B [facility] MEDIC[facility] ENHANCE SUPPLEMENT MEDICARE PART A & B [facility] MEDIC[facility] ENHANCE SUPPLEMENT MEDICARE PART A & [facility] MEDICARE ENHANCE SUPPLEMENT MEDICARE PART A & [facility] MEDICARE ENHANCE SUPPLEMENT MEDICARE PART A & [facility] MEDICARE ENHANCE SUPPLEMENT MEDICARE PART A & B MEDICARE ENHANCE SUPPLEMENT MEDICARE PART A & B [facility] MEDICARE ENHANCE SUPPLEMENT Advance Directives For more information, please contact: [phone] (9AM - 5PM [facility], Thursday-Thursday) Documents on File Type Date Recorded Patient Server Roselyn DESAI 01/21/2024 * Full Code (Latest Code Status on File) Date Activated Date Inactivated Comments 11/07/2020 3:31 AM Question Answer Comments Code Status Confirmed With: Patient Code Status Communicated To: Inpatient Attending * Full Code Date Activated Date Inactivated Comments 10/23/2020 4:36 AM 11/07/2020 3:31 AM Question Answer Comments Code Status Confirmed With: Patient * Full Code (Confirmed) Date Activated Date Inactivated Comments 03/23/2018 6:48 PM 03/24/2018 8:22 PM Question Answer Comments Code Status Confirmed With: Patient Care Teams Chest Painting And Sealing Supervisor Relationship Specialty Start Date End Date Jaylyn Chavira CNP [address] [place] [address], [address] [place] [address] [email or web address] PCP - General Nurse Practitioner 07/09/23 Noelle Alvarado CNP [address] [place] [address], 2nd [place] [address] Family Medicine 01/10/19 Joelle Wilkins NP [address] [place] [address] [email or web address] Nurse Practitioner Medical Oncology 11/12/20 Kathia Quesada PA-C [address] [place] [address] [email or web address] Physician Csr Hematology 02/14/21 Titus Arias DO [address] [place] [address] [email or web address] Primary Oncologist Hematology and Oncology 06/02/22 Jaylyn Chavira CNP [address] [place] [address] [address] [place] [address] [email or web address] Insurance Assigned Provider 10/02/24 Additional Source Comments The information contained in this document represents components of the legal health record. It is not the complete legal health record.[facility]
--- OUTSIDE RECORDS SUMMARY | 2025-04-26 17:54 | XMS_ITS | Encounter Summary ---
Author Organization [facility] Address [address] [facility] [address] [place] [address] Phone Care Team Providers Care Location Director Name Role Phone Jenny Noelle Coronel STAGECRAFT PROFESSOR Unavailable Joelle Wilkins PHARMACY OPERATIONS COORDINATOR Unavailable [phone] Noelle Alvarado STAGECRAFT PROFESSOR Primary Care Provider [phone] Kathia Quesada PA-C Unavailable [phone] Titus Arias DO Unavailable Soha Louie MD Unavailable [phone] SahKem carvalho DO Unavailable Clemente Brown MD Unavailable Jaylyn Chavira CNP Primary Care Provider Kem Amaya DO Unavailable Jaylyn Chavira CNP Unavailable [phone] Encounter Details Date Type Department Care Team (Late st Contact Info) Description 07/28/2022 Procedure Pass [facility], Ct Scan - [address] [id number] Social History Tobacco Use Types Packs/Day Years [...] st Contact Info) Description 10/03/2024 Procedure Pass [address] [address] 09/11/2025 12:30 PM EDT Office Visit [facility] [address] [place] [address] Jaylyn Chavira CNP 234 [facility] 7 [place] [address] 09/15/2025 10:00 AM EDT Office Visit [facility] at [address] [address] Titus Arias DO 30 [place] [address] [email or web address] 09/29/2025 8:30 AM EDT Appointment [address] [address] Jaylyn Chavira CNP 234 [facility] 7 [place] [address] documented as of this encounter Visit Diagnoses Not on filedocumented in this encounter Additional Health Concerns Infection Onset Date Last Indicated Resolved Time CoV-Risk 10/14/2024 10/14/2024 10/25/2024 1:23 AM EDT Assessment Noted Time PHQ-2 Depression Total Score: 0 12/13/19 22 10:05 AM EDT documented as of this encounter Care Teams Location Director Relationship Specialty Start Date End Date Noelle Alvarado CNP [address] [place] [address] [email or web address] PCP - General Family Medicine 11/21/20 07/08/23 Jaylyn Chavira CNP [address] [place] [address], [facility] 7 [place] [address] [email or web address] PCP - General Nurse Practitioner 07/09/23 Noelle Alvarado CNP [address] [address] [email or web address] Family Medicine 01/10/19 Joelle Wilkins NP [address] [place] [address] [email or web address] Nurse Practitioner Medical Oncology 11/12/20 Kathia Quesada PA-C 30 [place] [address] [email or web address] Physician Public Health Physician Hematology 02/14/21 Titus Arias DO [address] [place] [address] [email or web address] Primary Oncologist Hematology and Oncology 06/02/22 Soha Louie MD [address] [place] [address], [facility] 7 [place] [address] [email or web address] Insurance Assigned Provider 07/05/22 11/01/22 Kem Amaya DO [address] [place] [address], [facility] 7 [place] [address] [email or web address] Insurance Assigned Provider 11/01/22 05/09/23 Clemente Brown MD [address] [place] [address], [address] [place] [address] [email or web address] Insurance Assigned Provider 05/09/23 10/03/23 Kem Amaya DO [address] [place] [address], [facility] 7 [place] [address] [email or web address] Insurance Assigned Provider 10/03/23 10/02/24 Jaylyn Chavira CNP [address] [place] [address], [address] [place] [address] [email or web address] Insurance Assigned Provider 10/02/24 documented as of this encounter Additional Source Comments The information contained in this document represents components of the legal health record. It is not the complete legal health record.[facility]
--- OUTSIDE RECORDS SUMMARY | 2025-04-26 17:54 | XMS_ITS | Encounter Summary ---
Author Organization [facility] Address [address] [facility] [address] [place] [address] Phone Care Team Providers Care Obiee Obia Solution Architect Name Role Phone Titus Arias DO Unavailable Noelle Alvarado UNDERWRITING ACCOUNT REPRESENTATIVE Unavailable Joelle Wilkins MONITORING COORDINATOR Unavailable [phone] Noelle Alvarado UNDERWRITING ACCOUNT REPRESENTATIVE Primary Care Provider [phone] Kathia Quesada PA-C Unavailable Jose Cifuentes MD Unavailable SahKem carvalho DO Unavailable Paulette Fuchs DO Unavailable Titus Arias DO Unavailable Soha Louie MD Unavailable SahKem carvalho DO Unavailable Clemente Brown MD Unavailable Jaylyn Chavira CNP Primary Care Provider Kem Amaya DO Unavailable Jaylyn Chavira CNP Unavailable Encounter Details Date Type Department Care Team (Late st Contact Info) Description 04/17/2021 Procedure Pass [facility], [address] [address] Social History Tobacco Use Types Packs/Day Years Used Date Smoking Tobacco: Never Smokeless Tobacco: Never Comments: smoked - jose rafael rried for 30 yrs Alcohol Use Standard [...] st Contact Info) Description 10/03/2024 Procedure Pass [address] [address] 09/11/2025 12:30 PM EDT Office Visit [facility] [address] [address] Jaylyn Chavira, LYUDMILA [address] [address] 09/15/2025 10:00 AM EDT Office Visit [facility] at [address] [address] Titus Arias DO 30 [place] [address] [email or web address] 09/29/2025 8:30 AM EDT Appointment [address] [address] Jaylyn Chavira, LYUDMILA [address] [address] documented as of this encounter Visit Diagnoses Not on filedocumented in this encounter Additional Health Concerns Infection Onset Date Last Indicated Resolved Time CoV-Risk 11/05/2021 11/05/2021 11/16/2021 1:22 AM EDT CoV-Risk 06/04/2022 06/04/2022 06/15/2022 1:22 AM EST CoV-Risk 10/14/2024 10/14/2024 10/25/2024 1:23 AM EDT Assessment Noted Time PHQ-2 Depression Total Score: 0 12/30/19 1:35 PM EDT documented as of this encounter Care Teams Obiee Obia Solution Architect Relationship Specialty Start Date End Date Noelle Alvarado CNP [address] [address] PCP - General Family Medicine 11/21/20 07/08/23 Jaylyn Chavira CNP [address] [place] [address] 7 [place] [address] PCP - General Nurse Practitioner 07/09/23 Titus Arias DO [address] [place] [address] [email or web address] Primary Oncologist Hematology and Oncology 08/28/17 Noelle Alvarado CNP [address] [address] Family Medicine 01/10/19 Joelle Wilkins MONITORING COORDINATOR [address] [place] [address] Nurse Practitioner Medical Oncology 11/12/20 Kathia Quesada PA-C 30 [place] [address] Physician Hand Spinner Hematology 02/14/21 Jose Cifuentes MD [address] [place] [address] [address] [place] [phone] [email or web address] Insurance Assigned Provider 02/02/20 01/04/22 Kem Amaya DO [address] [place] [address], [address] [place] [address] [email or web address] Insurance Assigned Provider 01/04/22 03/08/22 Paulette Fuchs DO [address] [place] [address], [address] [place] [address] [email or web address] Insurance Assigned Provider 03/08/22 07/05/22 Titus Arias DO [address] [place] [address] [email or web address] Primary Oncologist Hematology and Oncology 06/02/22 Soha Louie MD [address] [place] [address], [address] [place] [address] [email or web address] Insurance Assigned Provider 07/05/22 11/01/22 Kem Amaya DO [address] [place] [address], [address] [place] [address] [email or web address] Insurance Assigned Provider 11/01/22 05/09/23 Clemente Brown MD [address] [place] [address], [address] [place] [address] [email or web address] Insurance Assigned Provider 05/09/23 10/03/23 Kem Amaya DO 234 [facility], [address] [place] [address] [email or web address] Insurance Assigned Provider 10/03/23 10/02/24 Jaylyn Chavira CNP 234 [facility], [address] [place] [address] [email or web address] Insurance Assigned Provider 10/02/24 documented as of this encounter Additional Source Comments The information contained in this document represents components of the legal health record. It is not the complete legal health record.[facility]
--- OUTSIDE RECORDS SUMMARY | 2025-04-26 17:54 | XMS_ITS | Encounter Summary ---
Author Organization [facility] Address [address] [place] [address] Phone Care Team Providers Care Inspector And Unloader Name Role Phone Titus Arias DO Unavailable [phone] Natasha Bah MD Unavailable [phone] Noelle Alvarado BILLING ANALYST Primary Care Provider [phone] Noelle Alvarado BILLING ANALYST Unavailable JennyNoelle wayne BILLING ANALYST Primary Care Provider [phone] Jose Cifuentes MD Primary Care Provider [phone] Noelle Alvarado BILLING ANALYST Primary Care Provider [phone] Jsoe Cifuentes MD Unavailable Jose Cifuentes MD Primary Care Provider [phone] Noelle Alvarado CNP Primary Care Provider Jose Cifuentes MD Primary Care Provider [phone] Noelle Alvarado BILLING ANALYST Primary Care Provider Onur Olivarez OT Unavailable [phone] Onur Olivarez OT Unavailable [phone] Joelle Wilkins WEB OFFSET PRESS FEEDER Unavailable [phone] Jose Cifuentes MD Primary Care Provider [phone] Noelle Alvarado [facility] Primary Care Provider [phone] Kathia Quesada PA-C Unavailable Jose Cifuentes MD Unavailable Sahd, Kem Kidd DO Unavailable Paulette Fuchs DO Unavailable Titus Arias DO Unavailable Soha Louie MD Unavailable Sahd, Kem Kidd DO Unavailable Clemente Brown MD Unavailable Jaylyn Chavira CNP Primary Care Provider Sahd, Kem Kidd DO Unavailable Jaylyn Chavira BILLING ANALYST Unavailable Encounter Details Date Type Department Care Team (Late st Contact Info) Description 12/21/2018 Procedure Pass [facility] Admitting Dept Virtual Department [address] [place] [address] Social History Tobacco Use Types Packs/Day Years Used Date Smoking Tobacco: Never Smokeless Tobacco: Never Alcohol Use Standard Drinks/Week Comments No 0 [...] st Contact Info) Description 10/03/2024 Procedure Pass [facility] 30 [place] [address] 09/11/2025 12:30 PM EDT Office Visit [facility] [address] [place], [place] [address] Jaylyn Chavira CNP 234 [facility], [address] [place], [place] [address] 09/15/2025 10:00 AM EDT Office Visit [facility] at [address] [address] Titus Arias DO 30 [place] [address] [email or web address] 09/29/2025 8:30 AM EDT Appointment [facility], [address] [address] Jaylyn Chavira CNP [address] [place] [address], [facility] 7 [place] [address] documented as of this encounter Visit Diagnoses Not on filedocumented in this encounter Additional Health Concerns Infection Onset Date Last Indicated Resolved Time CoV-Exposed Comment:Recent close contact documented in the COVID-19 PCR/PRO order 10/05/2020 10/11/2020 10/20/2020 1:24 AM E DT CoV-Risk 10/13/2020 10/23/2020 10/23/2020 6:52 AM EDT COVID-19 10/23/2020 10/23/2020 11/13/2020 1:24 AM EDT CoV-Risk 11/05/2021 11/05/2021 11/16/2021 1:22 AM EDT CoV-Risk 06/04/2022 06/04/2022 06/15/2022 1:22 AM EST CoV-Risk 10/14/2024 10/14/2024 10/25/2024 1:23 AM EDT Assessment Noted Time PHQ-2 Depression Total Score: 0 10/15/19 10:14 AM EDT documented as of this encounter Care Teams Inspector And Unloader Relationship Specialty Start Date End Date Noelle Alvarado CNP [address] [facility], 2nd [place] [address] [email or web address] PCP - General Family Medicine 03/23/18 01/09/19 Noelle Alvarado BILLING ANALYST [address] [address] [email or web address] PCP - General Family Medicine 01/10/19 11/15/19 Jose Cifuentes MD [address] [place] [phone] [email or web address] PCP - General Family Medicine 11/16/19 12/26/19 Noelle Alvarado BILLING ANALYST [address] [place] [address] [email or web address] PCP - General Family Medicine 12/27/19 05/07/20 Jose Cifuentes MD [facility] [address] [place] [phone] [email or web address] PCP - General Family Medicine 05/08/20 05/14/20 Noelle Alvarado BILLING ANALYST [address] [address] [email or web address] PCP - General Family Medicine 05/15/20 07/04/20 Jose Cifuentes MD [address] [facility] [address] [place] [phone] [email or web address] PCP - General Family Medicine 07/05/20 07/10/20 Noelle Alvarado BILLING ANALYST [address] [address] [email or web address] PCP - General Family Medicine 07/11/20 11/12/20 Jose Cifuentes MD [address] [place] [address] [address] [place] [address] [email or web address] PCP - General Family Medicine 11/13/20 11/20/20 Noelle Alvarado CNP [address] [place] [address] [email or web address] PCP - General Family Medicine 11/21/20 07/08/23 Jaylyn Chavira CNP [address] [place] [address] 7 [place] [address] [email or web address] PCP - General Nurse Practitioner 07/09/23 Titus Arias DO [address] [place] [address] [email or web address] Primary Oncologist Hematology and Oncology 08/28/17 Natasha Bah MD [address] [place] [address] 7 [place] [address] [email or web address] Insurance Assigned Provider 09/26/17 02/02/20 Noelle Alvarado BILLING ANALYST [address] [place] [address] [email or web address] Family Medicine 01/10/19 Jose Cifuentes MD [address] [place] [address] [address] [place] [phone] [email or web address] Insurance Assigned Provider 02/02/20 07/10/20 Onur Olivarez, OT 10 [place] [address] [email or web address] [employer] Service Team MemberPain Management Nurse Therapy 10/24/20 10/24/20 Onur Olivarez, OT 10 [place] [address] [email or web address] Transitions Meat Service Team MemberPain Management Nurse Therapy 11/07/20 11/09/20 Joelle Wilkins NP [address], [place] [address] [email or web address] Nurse Practitioner Medical Oncology 11/12/20 Kathia Quesada PA-C 30 [place] [address] [email or web address] Physician Wrister Hematology 02/14/21 Jose Cifuentes MD [address] [place] [address] [address] [place] [phone] [email or web address] Insurance Assigned Provider 02/02/20 01/04/22 Kem Amaya DO [address] [place] [address], [address] [place], [place] [phone] [email or web address] Insurance Assigned Provider 01/04/22 03/08/22 Paulette Fuchs DO [address] [place] [address], [address] [place], [place] [phone] Insurance Assigned Provider 03/08/22 07/05/22 Titus Arias DO [address] [place] [address] [email or web address] [email or web address] Primary Oncologist Hematology and Oncology 06/02/22 Soha Louie MD [address] [place] [address] 7 [place] [address] [email or web address] Insurance Assigned Provider 07/05/22 11/01/22 Kem Amaya DO [address] [place] [address], [address] [place] [address] [email or web address] Insurance Assigned Provider 11/01/22 05/09/23 Clemente Brown MD [address] [place] [address] [address] [place] [address] Insurance Assigned Provider 05/09/23 10/03/23 Kem Amaya DO [address] [place] [address] [address] [place] [address] [email or web address] Insurance Assigned Provider 10/03/23 10/02/24 Jaylyn Chavira CNP [address] [place] [address], [address] [place] [address] Insurance Assigned Provider 10/02/24 documented as of this encounter Additional Source Comments The information contained in this document represents components of the legal health record. It is not the complete legal health record.[facility]
--- OUTSIDE RECORDS SUMMARY | 2025-04-26 17:54 | XMS_ITS | Encounter Summary ---
Author Organization [facility] Address [address] [address] Phone Care Team Providers Care Dewatering Filtering Supervisor Name Role Phone Hugo Titus Ha DO Unavailable [phone] Noelle Alvarado JIG AND FIXTURE MAKER Unavailable Noelle Alvarado [facility] Primary Care Provider [phone] Onur Olivarez OT Unavailable [phone] Onur Olivarez OT Unavailable Joelle Wilkins SENIOR ERP CONSULTANT Unavailable [phone] Jose Cifuentes MD Primary Care Provider [phone] Noelle Alvarado CNP Primary Care Provider [phone] Kathia Quesada PA-C Unavailable Jose Cifuentes MD Unavailable SahKem carvalho DO Unavailable Paulette Fuchs DO Unavailable Titus Arias DO Unavailable [phone] Soha Louie MD Unavailable [phone] SahKem carvalho DO Unavailable Clemente Brown MD Unavailable Jaylyn Chavira [facility] Primary Care Provider [phone] SahKem carvalho DO Unavailable Jaylyn Chavira JIG AND FIXTURE MAKER Unavailable Encounter Details Date Type Department Care Team (Late st Contact Info) Description 10/22/2020 Procedure [facility], Ct Scan - [facility] 30 [place] [address] Social History Tobacco Use Types Packs/Day Years [...] PM EDT documented as of this encounter Functional Status * Calculated C-SSRS Risk Score (Lifetime/Recent) Answer Date of Assessment Author No Risk Indicated 10/22/2020 9:25 PM EDT Esther Caicedo RN * [place] Suicide Severity Rating Scale (Screener/Recent Self-Report) Question Answer Date of Assessment Author 1. Wish to be (Past 1 Month) No 021 9:25 PM EDT Esther Pean RN 2. Non-Specific Active Suici arlette Thoughts (Past 1 Month) No 10/22/2020 9:25 PM EDT Vangie Pena RN 6. Suicidal Behavior (Lifetime) No 9:25 PM EDT Esther Pena RN documented as of this encounter Plan of Treatment Upcoming Encounters Date Type Department Care Team (Late st Contact Info) Description 10/03/2024 [facility] [address] [place] [address] 09/11/2025 12:30 PM EDT Office Visit [facility] [place] [address] [place] [address] Jaylyn Chavira, LYUDMILA 234 [facility], [address] [place] [address] 09/15/2025 10:00 AM EDT Office Visit [facility] 30 [place] [address] Titus Arias DO 30 [place] [address] [email or web address] 09/29/2025 8:30 AM EDT Appointment [facility], [facility]- [address] [address] Jaylyn Chavira CNP 234 [facility], [address] [place] [id number] [email or web address] documented as of this encounter Visit Diagnoses Not on filedocumented in this encounter Additional Health Concerns Infection Onset Date Last Indicated Resolved Time CoV-Risk 10/13/2020 10/23/2020 10/23/2020 6:52 AM EDT COVID-19 10/23/2020 10/23/2020 11/13/2020 1:24 AM EDT CoV-Risk 11/05/2021 11/05/2021 11/16/2021 1:22 AM EDT CoV-Risk 06/04/2022 06/04/2022 06/15/2022 1:22 AM EST CoV-Risk 10/14/2024 10/14/2024 10/25/2024 1:23 AM EDT Assessment Noted Time PHQ-2 Depression Total Score: 0 12/30/19 1:35 PM EDT documented as of this encounter Care Teams Dewatering Filtering Supervisor Relationship Specialty Start Date End Date Noelle Alvarado CNP 15 [facility], 2nd [place] [address] [email or web address] PCP - General Family Medicine 07/11/20 11/12/20 Jose Cifuentes MD 234 [facility]. [address] [place] [phone] PCP - General Family Medicine 11/13/20 11/20/20 Noelle Alvarado CNP [address] [address] [email or web address] PCP - General Family Medicine 11/21/20 07/08/23 Jaylyn Chavira CNP [address] [place] [address] [address] [place] [address] [email or web address] PCP - General Nurse Practitioner 07/09/23 Titus Arias DO [address] [place] [address] [email or web address] Primary Oncologist Hematology and Oncology 08/28/17 Noelle Alvarado, LYUDMILA [address] [address] [email or web address] Family Medicine 01/10/19 Onur Olivarez, OT [address] [place] [address] [email or web address] Transitions Exhibit DesignerLine Erector Apprentice Therapy 10/24/20 10/24/20 Onur Olivarez, OT 10 [place] [address] [email or web address] Transitions Exhibit DesignerLine Erector Apprentice Therapy 11/07/20 11/09/20 Joelle Wilkins SENIOR ERP CONSULTANT [address] [place] [address] [email or web address] Nurse Practitioner Medical Oncology 11/12/20 Kathia Quesada PA-C 30 [place] [address] [email or web address] Physician Fleet Service Manager Hematology 02/14/21 Jose Cifuentes MD [address] [place] [address] [address] [place] [phone] [email or web address] Insurance Assigned Provider 02/02/20 01/04/22 Kem Amaya DO [address] [place] [address] 7 [place] [address] [email or web address] Insurance Assigned Provider 01/04/22 03/08/22 Paulette Fuchs DO [address] [place] [address] 7 [place] [address] [email or web address] Insurance Assigned Provider 03/08/22 07/05/22 Titus Arias DO 30 [place] [address] [email or web address] Primary Oncologist Hematology and Oncology 06/02/22 Soha Louie MD [address] [place] [address] 7 [place] [address] Insurance Assigned Provider 07/05/22 11/01/22 Kem Amaya DO [address] [place] [address] 7 [place] [address] [email or web address] Insurance Assigned Provider 11/01/22 05/09/23 Clemente Brown MD [address] [place] [address], [address] [place] [address] [email or web address] Insurance Assigned Provider 05/09/23 10/03/23 Kem Amaya DO [address] [place] [address], [address] [place] [address] [email or web address] Insurance Assigned Provider 10/03/23 10/02/24 Jaylyn Chavira CNP [address] [place] [address], [address] [place] [address] [email or web address] Insurance Assigned Provider 10/02/24 documented as of this encounter Additional Source Comments The information contained in this document represents components of the legal health record. It is not the complete legal health record.[facility]
--- OUTSIDE RECORDS SUMMARY | 2025-04-26 17:54 | XMS_ITS | Encounter Summary ---
Author Organization [facility] Address [address] [facility] [address] [place] [address] Phone Care Team Providers Care Commercial Service Technician Name Role Phone Noelle Alvarado HEAD OPERATOR Unavailable Joelle Wilkins BATCH BLENDER Unavailable [phone] Kathia QuesadaC Unavailable [phone] Titus Arias DO Unavailable Jaylyn Chavira CNP Primary Care Provider Kem Amaya DO Unavailable Jaylyn Chavira HEAD OPERATOR Unavailable [phone] Encounter Details Date Type Department Care Team (Late st Contact Info) Description 07/05/2024 Procedure Pass [facility], [address] [address] Social History Tobacco Use Types Packs/Day Years [...] Intimate Partner Violence Answer Date R ecorded Denied Basic Needs Not on file 07/09/2023 In the past 12 months have y ou been in a relationship with a person who hurts, threatens, or tries to control you? No 07/09/2023 Worried food would run out Not on file 07/09 In the past 12 months have y ou been in a relationship with a person who hurts, threatens, or tries to control you? No 07/09/2023 Comments No Sex and Gender Information Value Date Recorded Sex Assigned at Female 10/04/2017 7:23 PM EDT Legal Sex Female 10:02 PM EDT Gender Identity Female 10/04/2017 7:23 PM EDT Sexual Orientation Straight 10/04/2017 7: 23 PM EDT documented as of this encounter Plan of Treatment Upcoming Encounters Date Type Department Care Team (Late st Contact Info) Description 10/03/2024 Procedure Pass [address] [address] 09/11/2025 12:30 PM EDT Office Visit [facility] Medical [address] [address] Jaylyn Chavira, LYUDMILA 234 [facility] 7 [place] [address] 09/15/2025 10:00 AM EDT Office Visit [facility] at [address] [address] Titus Arias DO [address] [place] [address] [email or web address] 09/29/2025 8:30 AM EDT Appointment [address] [address] Jaylyn Chavira, HEAD OPERATOR 234 [facility], [facility] 7 [place] [address] documented as of this encounter Visit Diagnoses Not on filedocumented in this encounter Additional Health Concerns Infection Onset Date Last Indicated Resolved Time CoV-Risk 10/14/2024 10/14/2024 10/25/2024 1:23 AM EDT Assessment Noted Time PHQ-2 Depression Total Score: 1 07/09/19 24 3:59 PM EST documented as of this encounter Care Teams Commercial Service Technician Relationship Specialty Start Date End Date Jaylyn Chavira CNP 234 [facility], [facility] 7 [place] [address] [email or web address] PCP - General Nurse Practitioner 07/09/23 Noelle Alvarado CNP [address] [place] [address] [email or web address] Family Medicine 01/10/19 Joelle Wilkins NP [address] [place] [address] [email or web address] Nurse Practitioner Medical Oncology 11/12/20 Kathia Quesada PA-C 30 [place] [address] [email or web address] Physician Heel Lining Paster Hematology 02/14/21 Titus Arias DO 30 [place] [address] [email or web address] Primary Oncologist Hematology and Oncology 06/02/22 Kem Amaya DO 234 [facility], [facility] 7 [place] [address] [email or web address] Insurance Assigned Provider 10/03/23 10/02/24 Jaylyn Chavira CNP [address] [place] [address], [address] [place] [address] [email or web address] Insurance Assigned Provider 10/02/24 documented as of this encounter Additional Source Comments The information contained in this document represents components of the legal health record. It is not the complete legal health record.[facility]
--- OUTSIDE RECORDS SUMMARY | 2025-04-26 17:54 | XMS_ITS | Encounter Summary ---
Author Organization [facility] Address [address] [place] [address] Phone Care Team Providers Care Routing Equipment Tender Name Role Phone Titus Arias DO Unavailable [phone] Noelle Alvarado BODY CLEANER Unavailable [phone] Noelle Alvarado [facility] Primary Care Provider [phone] Jose Cifuentes MD Unavailable Jose Cifuentes MD Primary Care Provider [phone] Noelle Alvarado [facility] Primary Care Provider [phone] Jose Cifuentes MD Primary Care Provider [phone] Noelle Alvarado [facility] Primary Care Provider [phone] Onur Olivarez OT Unavailable [phone] Onur Olivarez OT Unavailable [phone] Joelle Wilkins LIFTER Unavailable [phone] Jose Cifuentes MD Primary Care Provider [phone] Noelle Alvarado [facility] Primary Care Provider [phone] Kathia Quesada PA-C Unavailable [phone] Jose Cifuentes MD Unavailable Kem Amaya DO Unavailable Paulette Fuchs DO Unavailable Titus Arias DO Unavailable Soha Louie MD Unavailable SahKem carvalho DO Unavailable Clemente Brown MD Unavailable Jaylyn Chavira BODY CLEANER Primary Care Provider SahmaiaKem DO Unavailable Jaylyn Chavira BODY CLEANER Unavailable Encounter Details Date Type Department Care Team (Late st Contact Info) Description 04/20/2020 Ancillary Orders [facility] 234 [place] [address] Noelle Alvarado CNP 15 [facility], 2nd [place] [address] Breast screening Social History Tobacco Use Types Packs/Day Years [...] Encounters Date Type Department Care Team (Late Contact Info) Description 10/03/2024 Procedure Pass [facility], [facility] 30 [place] [address] 09/11/2025 12:30 PM EDT Office Visit [facility] 234 [place] [address] Jaylyn Chavira, LYUDMILA 234 [facility], [address] [place] [address] 09/15/2025 10:00 AM EDT Office Visit [facility] 30 [place] [address] Titus Arias DO 30 [place] [address] [email or web address] 09/29/2025 8:30 AM EDT Appointment [facility], [facility]- [address] [address] Jaylyn Chavira, BODY CLEANER 234 [facility], [address] [place] [address] [email or web address] documented as of this encounter Results * BI MAMMOGRAM SCREENING WITH TOMOSYNTHESIS WITH CAD (BILATERAL) (07/05/2020 10:09 AM EST) Anatomical Region Laterality Modality Breast Left, Breast Right, Breast Bilateral Bila teral Mammography 07/05/2020 11:3 0 AM EST Impressions 07/05/2020 11:32 AM EST No mammographic change indicative of malignancy. Annual screening is recommended. BI-RADS CATEGORY: 2 - Benign finding. DENSITY: There are scattered fibroglandular densities. Narrative 07/05/2020 11:32 AM EST Bilateral full-field digital screening mammography is obtained and read in conjunction with computer-aided detection. Tomosynthesis as well as 2-D C view imaging of both breasts in two planes also obtained. Comparison made to multiple prior, most recent June 28, 2019, and most remote May 10, 2014. No dominant mass, architectural distortion, worrisome asymmetry, or suspicious calcification is identified. No skin or nipple finding of concern is appreciated. Intramammary nodes and vascular calcification again noted bilaterally. Some minimal right asymmetry is stable. Procedure Note Bigg Preston MD - 07/05/2020 Bilateral full-field digital screening mammography is obtained and read inconjunction with computer-aided detection. Tomosynthesis as well as 2-D Cview imaging of both breasts in two planes also obtained. Comparison madeto multiple prior, most recent June 28, 2019, and most remote 2013. No dominant mass, architectural distortion, worrisome asymmetry, orsuspicious calcification is identified. No skin or nipple finding ofconcern is appreciated. Intramammary nodes and vascular calcificationagain noted bilaterally. Some minimal right asymmetry is stable. IMPRESSION: No mammographic change indicative of malignancy. Annual screening isrecommended. BI-RADS CATEGORY: 2 - Benign finding. DENSITY: There are scattered fibroglandular densities. Noelle Alvarado CNP IMG MG EXAMS Final Resu lt documented in this encounter Visit Diagnoses Diagnosis Breast screening Breast screening, unspecified Breast screening Breast screening, unspecified documented in this encounter Additional Health Concerns Infection [...] documented as of this encounter Care Teams Routing Equipment Tender Relationship Specialty Start Date End Date Noelle Alvarado CNP 15 [facility], 2nd [place] [address] PCP - General Family Medicine 12/27/19 05/07/20 Jose Cifuentes MD [facility] [address] [place] [phone] [email or web address] PCP - General Family Medicine 05/08/20 05/14/20 Noelle Alvarado, BODY CLEANER [address] [address] [email or web address] PCP - General Family Medicine 05/15/20 07/04/20 Jose Cifuentes MD [address] [place] [address] [address] [place] [phone] [email or web address] PCP - General Family Medicine 07/05/20 07/10/20 Noelle Alvarado, BODY CLEANER [address] [address] [email or web address] PCP - General Family Medicine 07/11/20 11/12/20 Jose Cifuentes MD [facility] [address] [place], [place] [phone] [email or web address] PCP - General Family Medicine 11/13/20 11/20/20 Noelle Alvarado BODY CLEANER [address] [address] [email or web address] PCP - General Family Medicine 11/21/20 07/08/23 Jaylyn Chavira CNP [address] [place] [address], [address] [place] [address] [email or web address] PCP - General Nurse Practitioner 07/09/23 Titus Arias DO 30 [place] [address] [email or web address] Primary Oncologist Hematology and Oncology 08/28/17 Noelle Alvarado CNP [address] [place] [address], 2nd [place] [address] [email or web address] Family Medicine 01/10/19 Jose Cifuentes MD [address] [place], [place] [address] [place] [phone] [email or web address] Insurance Assigned Provider 02/02/20 07/10/20 Onur Olivarez, OT [address] [place] [address] [email or web address] Transitions Inclusion TeacherHead Of Advertising Therapy 10/24/20 10/24/20 Onur Olivarez, OT 10 [place] [address] [email or web address] Transitions Inclusion TeacherHead Of Advertising Therapy 11/07/20 11/09/20 Joelle Wilkins NP [address] [place] [address] [email or web address] Nurse Practitioner Medical Oncology 11/12/20 Kathia Quesada PA-C 30 [place] [address] [email or web address] Physician Side Splitter Hematology 02/14/21 Jose Cifuentes MD [address] [place] [address] [address] [place] [phone] [email or web address] Insurance Assigned Provider 02/02/20 01/04/22 Kem Amaya, DO [address] [place] [address] [address] [place] [address] [email or web address] Insurance Assigned Provider 01/04/22 03/08/22 Paulette Fuchs DO [address] [place] [address] [address] [place] [address] [email or web address] Insurance Assigned Provider 03/08/22 07/05/22 Titus Arias DO [address] [place] [address] [email or web address] Primary Oncologist Hematology and Oncology 06/02/22 Soha Louie MD [address] [place] [address], [address] [place] [address] [email or web address] Insurance Assigned Provider 07/05/22 11/01/22 Kem Amaya DO [address] [place] [address] [address] [place] [address] [email or web address] Insurance Assigned Provider 11/01/22 05/09/23 Clemente Brown MD [address] [place] [address], [address] [place] [address] [email or web address] Insurance Assigned Provider 05/09/23 10/03/23 Kem Amaya, DO [address] [place] [address] [address] [place] [address] [email or web address] Insurance Assigned Provider 10/03/23 10/02/24 Jaylyn Chavira CNP [address] [place] [address], [address] [place] [address] Insurance Assigned Provider 10/02/24 documented as of this encounter Additional Source Comments The information contained in this document represents components of the legal health record. It is not the complete legal health record.[facility]
--- OUTSIDE RECORDS SUMMARY | 2025-04-26 17:54 | XMS_ITS | Encounter Summary ---
Author Organization [facility] Address 399 [employer] [facility] [address] [place] [address] Phone Care Team Providers Care Tufter Hand Name Role Phone Noelle Alvarado FOOD AND DRUG RESEARCH SCIENTIST Unavailable Joelle Wilkins MANAGER RETIREMENT Unavailable [phone] Kathia Quesada PA-C Unavailable [phone] Titus Arias DO Unavailable Jaylyn Chavira FOOD AND DRUG RESEARCH SCIENTIST Primary Care Provider Jaylyn Chavira FOOD AND DRUG RESEARCH SCIENTIST Unavailable Encounter Details Date Type Department Care Team (Late st Contact Info) Description 10/27/2024 Procedure Pass [facility], Ct Scan - [address] [address] Social History Tobacco Use Types Packs/Day Years [...] st Contact Info) Description 10/03/2024 Procedure Pass [address] [address] 09/11/2025 12:30 PM EDT Office Visit [facility] Medical [address] [address] Jaylyn Chavira, FOOD AND DRUG RESEARCH SCIENTIST [address] [address] 09/15/2025 10:00 AM EDT Office Visit [facility] at [address] [address] Titus Arias DO 30 [place] [address] [email or web address] 09/29/2025 8:30 AM EDT Appointment [address] [address] Jaylyn Chavira, FOOD AND DRUG RESEARCH SCIENTIST 234 [facility], [facility] 7 [place] [address] documented as of this encounter Visit Diagnoses Not on filedocumented in this encounter Additional Health Concerns Assessment Noted Time PHQ-2 Depression Total Score: 1 07/09/19 24 3:59 PM EST documented as of this encounter Care Teams Tufter Hand Relationship Specialty Start Date End Date Jaylyn ChaviraLYUDMILA 234 [facility], [facility] 7 [place] [address] [email or web address] PCP - General Nurse Practitioner 07/09/23 Noelle Alvarado CNP 15 [facility], [facility] [place] [address] [email or web address] Family Medicine 01/10/19 Joelle Wilkins NP [address] [place] [address] [email or web address] Nurse Practitioner Medical Oncology 11/12/20 Kathia Quesada PA-C 30 [place] [address] [email or web address] Physician Solar Panel Installation Supervisor Hematology 02/14/21 Titus Arias DO 30 [place] [address] [email or web address] Primary Oncologist Hematology and Oncology 06/02/22 Jaylyn Chavira CNP 234 [facility], [facility] 7 [place] [address] [email or web address] Insurance Assigned Provider 10/02/24 documented as of this encounter Additional Source Comments The information contained in this document represents components of the legal health record. It is not the complete legal health record.[facility]
--- OUTSIDE RECORDS SUMMARY | 2025-04-26 17:54 | XMS_ITS | Encounter Summary ---
Author Organization [facility] Address [address] [facility] [address] [place] [address] Phone Care Team Providers Care Plate Painter Name Role Phone Titus Arias DO Unavailable Noelle Alvarado PEER SPECIALIST Unavailable Joelle Wilkins CUSTOMER SUPPORT EXECUTIVE Unavailable [phone] Noelle Alvarado PEER SPECIALIST Primary Care Provider [phone] Kathia Quesada PA-C Unavailable Paulette Fuchs DO Unavailable Titus Arias DO Unavailable Soha Louie MD Unavailable Kem Amaya DO Unavailable Clemente Brown MD Unavailable Jaylyn Chavira CNP Primary Care Provider Kem Amaya DO Unavailable Jaylyn Chavira CNP Unavailable Encounter Details Date Type Department Care Team (Late st Contact Info) Description 04/25/2022 Procedure Pass [facility], [facility] [address] [place] [address] Social History Tobacco Use Types Packs/Day Years [...] st Contact Info) Description 10/03/2024 Procedure Pass [address] [address] 09/11/2025 12:30 PM EDT Office Visit [facility] [address] [address] Jaylyn Chaviar, PEER SPECIALIST 234 [facility] 7 [place] [address] 09/15/2025 10:00 AM EDT Office Visit [facility] at [address] [address] Titus Arias DO [address] [place] [address] [email or web address] 09/29/2025 8:30 AM EDT Appointment [address] [address] Jaylyn Chavira, PEER SPECIALIST 234 [facility] 7 [place] [address] documented as of this encounter Visit Diagnoses Not on filedocumented in this encounter Additional Health Concerns Infection Onset Date Last Indicated Resolved Time CoV-Risk 06/04/2022 06/04/2022 06/15/2022 1:22 AM EST CoV-Risk 10/14/2024 10/14/2024 10/25/2024 1:23 AM EDT Assessment Noted Time PHQ-2 Depression Total Score: 0 12/13/19 22 10:05 AM EDT documented as of this encounter Care Teams Plate Painter Relationship Specialty Start Date End Date Noelle AlvaradoLYUDMILA [address] [address] PCP - General Family Medicine 11/21/20 07/08/23 Jaylyn Chavira CNP [address] [place] [address] 7 [place] [address] [email or web address] PCP - General Nurse Practitioner 07/09/23 Titus Arias DO [address] [place] [address] [email or web address] Primary Oncologist Hematology and Oncology 08/28/17 Noelle Alvarado LYUDMILA Coronel [address] [address] [email or web address] Family Medicine 01/10/19 Joelle Wilkins NP [address] [place] [address] [email or web address] Nurse Practitioner Medical Oncology 11/12/20 Kathia Quesada PA-C [address] [place] [address] [email or web address] Physician Picker Tender Hematology 02/14/21 Paulette Fuchs DO [address] [place] [address], [facility] 7 [place] [address] Insurance Assigned Provider 03/08/22 07/05/22 Titus Arias DO [address] [place] [address] [email or web address] Primary Oncologist Hematology and Oncology 06/02/22 Soha Louie MD [address] [place] [address] 7 [place] [address] Insurance Assigned Provider 07/05/22 11/01/22 Kem Amaya DO [address] [place] [address] 7 [place] [address] [email or web address] Insurance Assigned Provider 11/01/22 05/09/23 Clemente Brown MD [address] [place] [address] 7 [place] [address] Insurance Assigned Provider 05/09/23 10/03/23 Kem Amaya DO [address] [place] [address] 7 [place] [address] [email or web address] Insurance Assigned Provider 10/03/23 10/02/24 Jaylyn Chavira CNP [address] [place] [address], [address] [place] [address] Insurance Assigned Provider 10/02/24 documented as of this encounter Additional Source Comments The information contained in this document represents components of the legal health record. It is not the complete legal health record.[facility]
--- OUTSIDE RECORDS SUMMARY | 2025-04-26 17:54 | XMS_ITS | Encounter Summary ---
Author Organization [facility] Address [address] [facility] [address] [place] [address] Phone Care Team Providers Care Principal Investigator Name Role Phone Hugo Titus Ha DO Unavailable Noelle Alvarado WINE CELLAR WORKER Unavailable Joelle Wilkins PATHOLOGY TECH Unavailable [phone] Noelle Alvarado WINE CELLAR WORKER Primary Care Provider [phone] Kathia Quesada PA-C Unavailable Jose Cifuentes MD Unavailable SahKem carvalho DO Unavailable Paulette Fuchs DO Unavailable HugoTitus field DO Unavailable Soha Louie MD Unavailable SahKem carvalho DO Unavailable Clemente Brown MD Unavailable Jaylyn Chavira CNP Primary Care Provider Kem Amaya DO Unavailable Jaylyn Chavira CNP Unavailable Encounter Details Date Type Department Care Team (Late st Contact Info) Description 03/23/2021 Procedure Pass [facility], [facility] - [address] [address] Social History Tobacco Use Types Packs/Day Years [...] Date of Assessment Author No Risk Indicated 03/23/2021 4:40 PM EDT Tiera Knowles RN * [place] Suicide Severity Rating Scale (Screener/Recent Self-Report) Question Answer Date of Assessment Author 1. Wish to be (Past 1 Month) No 021 4:40 PM EDT Tiera Knowles RN 2. Non-Specific Active Suici arlette Thoughts (Past 1 Month) No 03/23/2021 4:40 PM EDT Tiera Knowles RN 6. Suicidal Behavior (Lifetime) No 4:40 PM EDT Tiera Knowles RN documented as of this encounter Plan of Treatment Upcoming Encounters Date Type Department Care Team (Late st Contact Info) Description 10/03/2024 Procedure Pass [facility], [address] [address] 09/11/2025 12:30 PM EDT Office Visit [facility] [address] [place] [address] Jaylyn Chavira, LYUDMILA 234 [facility], [address] [place] [address] 09/15/2025 10:00 AM EDT Office Visit [facility] at [address] [address] Titus Arias, 30 [place] [address] [email or web address] 09/29/2025 8:30 AM EDT Appointment [facility], [facility] 30 [place] [address] Jaylyn Chavira CNP 234 [facility] 7 [place] [address] [email or web address] documented as of this encounter Visit Diagnoses [...] documented as of this encounter Care Teams Principal Investigator Relationship Specialty Start Date End Date Noelle Alvarado CNP [address] [place] [address] [email or web address] PCP - General Family Medicine 11/21/20 07/08/23 Jaylyn Chavira CNP [address] [place] [address] 7 [place] [address] [email or web address] PCP - General Nurse Practitioner 07/09/23 Titus Arias DO 30 [place] [address] [email or web address] Primary Oncologist Hematology and Oncology 08/28/17 Noelle Alvarado CNP 15 [facility], 2nd [place] [address] [email or web address] Family Medicine 01/10/19 Joelle Wilkins, PATHOLOGY TECH [address] [place] [address] [email or web address] Nurse Practitioner Medical Oncology 11/12/20 Kathia Quesada PA-C 30 [place] [address] [email or web address] Physician Sign Language Teacher Hematology 02/14/21 Jose Cifuentes MD [address] [place], [place] [address] [place] [id number] [email or web address] Insurance Assigned Provider 02/02/20 01/04/22 Kem Amaya DO [address] [place] [address], [facility] 7 [place] [address] [email or web address] Insurance Assigned Provider 01/04/22 03/08/22 Paulette Fuchs DO [address] [place] [address] 7 [place] [address] [email or web address] Insurance Assigned Provider 03/08/22 07/05/22 Titus Arias DO 30 [place] [address] [email or web address] Primary Oncologist Hematology and Oncology 06/02/22 Soha Louie MD [address] [place] [address] 7 [place] [address] Insurance Assigned Provider 07/05/22 11/01/22 Kem Amaya DO [address] [place] [address], [address] [place] [address] [email or web address] Insurance Assigned Provider 11/01/22 05/09/23 Clemente Brown MD [address] [place] [address], [address] [place] [address] Insurance Assigned Provider 05/09/23 10/03/23 Kem Amaya DO [address] [place] [address], [address] [place] [address] [email or web address] Insurance Assigned Provider 10/03/23 10/02/24 Jaylyn Chavira CNP [address] [place] [address], [address] [place] [address] Insurance Assigned Provider 10/02/24 documented as of this encounter Additional Source Comments The information contained in this document represents components of the legal health record. It is not the complete legal health record.[facility]
--- OUTSIDE RECORDS SUMMARY | 2025-04-26 17:54 | XMS_ITS | Encounter Summary ---
Author Organization [facility] Address [address] [facility] [address] [place] [address] Phone Care Team Providers Care [place] Machine Operator Name Role Phone Noelle Alvarado BATTERY STACKER Unavailable Joelle Wilkins RESEARCH ASSISTANT MEMBER Unavailable [phone] Noelle Alvarado CNP Primary Care Provider [phone] Kathia Quesada PA-C Unavailable Titus Arias DO Unavailable SahKem thomas DO Unavailable Clemente Brown MD Unavailable Jaylyn Chavira CNP Primary Care Provider Kem Amaya DO Unavailable Jaylyn Chavira BATTERY STACKER Unavailable [phone] Encounter Details Date Type Department Care Team (Latest Contact Info) Description 04/20/2023 Transcribe Orders Virtual Department [address] [place] [address] Noelle Alvarado, BATTERY STACKER 15 [facility], 2nd [place] [address] [email or web address] Encounter for screening mammogram for malignant neoplasm of breast (Primary Dx) Social History Tobacco Use Types Packs/Day Years Used Date Smoking Tobacco: Never Smokeless Tobacco: Never Comments: smoked - ma rried for 30 yrs Alcohol Use Standard Drinks/Week Comments No 0 (1 standard drink = 0.6 oz pur e alcohol) Education Answer Date Recorded Are you interested in more education? Not on anila e 10/23/2022 Are you concerned about learning? Not on file 10/23/2022 No 10/23/2022 No 10/23/2022 Digital Access Answer Date Recorded No 11/18/2022 No 11/18/2022 Reliable internet access at home? Not on file 11/18/2022 Device with a working camera? Not on file Comments No Sex and Gender Information Value Date Recorded Sex Assigned at Female 10/04/2017 7:23 PM EDT Legal Sex Female 10:02 PM EDT Gender Identity Female 10/04/2017 7:23 PM EDT Sexual Orientation Straight 10/04/2017 7: 23 PM EDT documented as of this encounter Plan of Treatment Upcoming Encounters Date Type Department Care Team (Late st Contact Info) Description 10/03/2024 Procedure Pass [address] [address] 09/11/2025 12:30 PM EDT Office Visit [facility] [address] [address] Jaylyn Chavira, BATTERY STACKER [address] [address] 09/15/2025 10:00 AM EDT Office Visit Loc[facility] at [address] [address] Titus Arias, 30 [place] [address] [email or web address] 09/29/2025 8:30 AM EDT Appointment [address] [address] Jaylyn Chavira, BATTERY STACKER 234 [facility], [facility] 7 [place] [address] [email or web address] [employer] documented as of this encounter Results * BI MAMMOGRAM SCREENING WITH TOMOSYNTHESIS WITH CAD (BILATERAL) (07/13/2023 9:25 AM EST) Anatomical Region Laterality Modality Breast Left, Breast Right, Breast Bilateral Bila teral Mammography 07/21/2023 5:08 PM EST Impressions 07/21/2023 5:40 PM EST BILATERAL BREASTS: No evidence of malignancy. Normal interval follow-up is recommended. BI-RADS: BI-RADS CATEGORY: 2 - Benign finding. DENSITY: There are scattered fibroglandular densities. Narrative 07/21/2023 5:40 PM EST History: Breast cancer screening. STUDY: Bilateral screening mammography with tomosynthesis and CAD TECHNIQUE: Bilateral full-field digital screening mammography is obtained and read in conjunction with computer-aided detection. Tomosynthesis as well as 2-D C view imaging were obtained. COMPARISON: 07/11/2022 through 06/23/2017. FINDINGS Tissue asymmetries within the posterior lateral upper breast bilaterally. No concerning interval change accounting for patient positioning. Scattered benign calcifications again evident. No suspicious mass, concerning group of calcifications or suspicious asymmetry identified. Procedure Note Jamie Cano MD - 07/21/2023 History: Breast cancer screening. STUDY: Bilateral screening mammography with tomosynthesis and CAD TECHNIQUE: Bilateral full-field digital screening mammography is obtainedand read in conjunction with computer-aided detection. Tomosynthesis aswell as 2-D C view imaging were obtained. COMPARISON: 07/11/2022 through 06/23/2017. FINDINGS Tissue asymmetries within the posterior lateral upper breastbilaterally. No concerning interval change accounting for patientpositioning. Scattered benign calcifications again evident. No suspiciousmass, concerning group of calcifications or suspicious asymmetryidentified. IMPRESSION: BILATERAL BREASTS: No evidence of malignancy. Normal interval follow-up isrecommended. BI-RADS: BI-RADS CATEGORY: 2 - Benign finding. DENSITY: There are scattered fibroglandular densities. Noelle Alvarado BATTERY STACKER IMG MG EXAMS Final Resu lt documented in this encounter Visit Diagnoses Diagnosis Encounter for screening mammogram for malignant neoplasm of breast- Primary Encounter for screening mammogram for malignant neoplasm of breast documented in this encounter Additional Health Concerns Infection Onset Date Last Indicated Resolved Time CoV-Risk 10/14/2024 10/14/2024 10/25/2024 1:23 AM EDT Assessment Noted Time PHQ-2 Depression Total Score: 0 12/13/19 10:05 AM EDT documented as of this encounter Care Teams [place] Machine Operator Relationship Specialty Start Date End Date Noelle Alvarado CNP [address] [place] [address] PCP - General Family Medicine 11/21/20 07/08/23 Jaylyn Chavira CNP [address] [place] [address] PCP - General Nurse Practitioner 07/09/23 Noelle Alvarado CNP [address] [place] [address] Family Medicine 01/10/19 Joelle Wilkins NP [address] [place] [address] Nurse Practitioner Medical Oncology 11/12/20 Kathia Quesada PA-C [address] [place] [address] Physician Special Effects Makeup Artist Hematology 02/14/21 Titus Arias DO [address] [place] [address] [email or web address] Primary Oncologist Hematology and Oncology 06/02/22 Kem Amaya DO [address] [place] [address], [address] [place] [address] [email or web address] Insurance Assigned Provider 11/01/22 05/09/23 Clemente Brown MD [address] [place] [address], [address] [place] [address] [email or web address] Insurance Assigned Provider 05/09/23 10/03/23 Kem Amaya DO [address] [place] [address], [address] [place] [address] [email or web address] Insurance Assigned Provider 10/03/23 10/02/24 Jaylyn Chavira CNP [address] [place] [address], [address] [place] [address] [email or web address] Insurance Assigned Provider 10/02/24 documented as of this encounter Additional Source Comments The information contained in this document represents components of the legal health record. It is not the complete legal health record.[facility]
--- OUTSIDE RECORDS SUMMARY | 2025-04-26 17:54 | XMS_ITS | Encounter Summary ---
Author Organization [facility] Address [address] [facility] [employer] [facility] [address] [place] [address] Phone Care Team Providers Care Quality Assurance Group Leader Name Role Phone Noelle Alvarado VIOLIN MECHANIC Unavailable Joelle Wilkins YARD FOREMAN Unavailable [phone] Kathia QuesadaC Unavailable Titus Arias DO Unavailable Jaylyn Chavira CNP Primary Care Provider Kem Amaya DO Unavailable Jaylyn Chavira VIOLIN MECHANIC Unavailable Encounter Details Date Type Department Care Team (Late st Contact Info) Description 04/19/2024 Procedure Pass [facility], [address] [address] Social History Tobacco Use Types Packs/Day Years [...] st Contact Info) Description 10/03/2024 Procedure Pass [address] [address] 09/11/2025 12:30 PM EDT Office Visit [facility] [address] [address] Jaylyn Chavira, LYUDMILA 234 [facility] 7 [place] [address] 09/15/2025 10:00 AM EDT Office Visit [facility] at [address] [address] Titus Arias DO [address] [place] [address] [email or web address] 09/29/2025 8:30 AM EDT Appointment [address] [address] Jaylyn Chavira, VIOLIN MECHANIC 234 [facility], [facility] 7 [place] [address] documented as of this encounter Visit Diagnoses Not on filedocumented in this encounter Additional Health Concerns Infection Onset Date Last Indicated Resolved Time CoV-Risk 10/14/2024 10/14/2024 10/25/2024 1:23 AM EDT Assessment Noted Time PHQ-2 Depression Total Score: 1 07/09/19 24 3:59 PM EST documented as of this encounter Care Teams Quality Assurance Group Leader Relationship Specialty Start Date End Date Jaylyn Chavira CNP 234 [facility], [facility] 7 [place] [address] [email or web address] PCP - General Nurse Practitioner 07/09/23 Noelle Alvarado CNP [address] [place] [address] [email or web address] Family Medicine 01/10/19 Joelle Wilkins NP [address] [place] [address] [email or web address] Nurse Practitioner Medical Oncology 11/12/20 Kathia Quesada PA-C [address] [place] [address] [email or web address] Physician Plastic Surgery Assistant Hematology 02/14/21 Titus Arias DO [address] [place] [address] [email or web address] Primary Oncologist Hematology and Oncology 06/02/22 Kem Amaya DO 234 [facility], [facility] 7 [place] [address] [email or web address] Insurance Assigned Provider 10/03/23 10/02/24 Jaylyn Chavira CNP [address] [place] [address], [address] [place] [address] [email or web address] Insurance Assigned Provider 10/02/24 documented as of this encounter Additional Source Comments The information contained in this document represents components of the legal health record. It is not the complete legal health record.[facility]
--- OUTSIDE RECORDS SUMMARY | 2025-04-26 17:54 | XMS_ITS | Encounter Summary ---
Author Organization [facility] Address [address] [place] [address] Phone Care Team Providers Care Dipping Machine Operator Name Role Phone Titus Arias DO Unavailable [phone] Noelle Alvarado HORTICULTURAL FARMWORKER Unavailable [phone] Noelle Alvarado [facility] Primary Care Provider [phone] Jose Cifuentes MD Unavailable Jose Cifuentes MD Primary Care Provider [phone] Noelle Alvarado [facility] Primary Care Provider [phone] Jose Cifuentes MD Primary Care Provider [phone] Noelle Alvarado [facility] Primary Care Provider [phone] Onur Olivarez OT Unavailable [phone] Onur Olivarez OT Unavailable [phone] Joelle Wilkins REFINERY OPERATOR [employer] Unavailable [phone] Jose Cifuentes MD Primary Care Provider [phone] Noelle Alvarado [facility] Primary Care Provider [phone] Kathia Quesada PA-C Unavailable [phone] Jose Cifuentes MD Unavailable Kem Amaya DO Unavailable Paulette Fuchs DO Unavailable Titus Arias DO Unavailable Soha Louie MD Unavailable SahmaiaKem DO Unavailable Clemente Brown MD Unavailable Jaylyn Chavira HORTICULTURAL FARMWORKER Primary Care Provider Jose LuisKem DO Unavailable Jaylyn Chavira HORTICULTURAL FARMWORKER Unavailable Encounter Details Date Type Department Care Team (Late st Contact Info) Description 04/20/2020 Procedure Pass [address] [address] Social History Tobacco Use Types Packs/Day Years [...] st Contact Info) Description 10/03/2024 Procedure Pass [address] [address] 09/11/2025 12:30 PM EDT Office Visit [facility] [address] [place] [address] Jaylyn Chavira, HORTICULTURAL FARMWORKER [address] [facility], [address] [place] [address] 09/15/2025 10:00 AM EDT Office Visit [facility] at [address] [address] Titus Arias, DO [address] [place] [address] [email or web address] [email or web address] 09/29/2025 8:30 AM EDT Appointment [facility] [address] [place] [address] Jaylyn Chavira CNP [address] [facility], [address] [place] [address] [email or web address] documented as of this encounter Visit Diagnoses [...] documented as of this encounter Care Teams Dipping Machine Operator Relationship Specialty Start Date End Date Noelle Alvarado CNP [address] [facility], 2nd [place] [address] PCP - General Family Medicine 12/27/19 05/07/20 Jose Cifuentes MD [address] [place] [address] [address] [place] [phone] [email or web address] PCP - General Family Medicine 05/08/20 05/14/20 Noelle Alvarado HORTICULTURAL FARMWORKER [address] [address] [email or web address] PCP - General Family Medicine 05/15/20 07/04/20 Jose Cifuentes MD [address] [place] [address] [address] [place] [phone] [email or web address] PCP - General Family Medicine 07/05/20 07/10/20 Noelle Alvarado CNP [address] [place] [address] [email or web address] PCP - General Family Medicine 07/11/20 11/12/20 Jose Cifuentes MD [address] [place] [address] [address] [place] [phone] [email or web address] PCP - General Family Medicine 11/13/20 11/20/20 Noelle Alvarado HORTICULTURAL FARMWORKER [address] [place] [address] [email or web address] PCP - General Family Medicine 11/21/20 07/08/23 Jaylyn Chavira CNP [address] [place] [address] [address] [place] [id number] [email or web address] PCP - General Nurse Practitioner 07/09/23 Titus Arias DO [address] [place] [address] [email or web address] TROY Primary Oncologist Hematology and Oncology 08/28/17 Noelle Alvarado CNP [address] [place] [address], [address] [place] [address] [email or web address] Family Medicine 01/10/19 Jose Cifuentes MD [address] [place] [address] [address] [place] [phone] [email or web address] Insurance Assigned Provider 02/02/20 07/10/20 Onur Olivarez, OT [address] [place] [address] [email or web address] Transitions Hoop Machine OperatorIronworker Wire Fence Erector Therapy 10/24/20 10/24/20 Onur Olivarez, OT [address] [place] [address] [email or web address] Transitions Hoop Machine OperatorIronworker Wire Fence Erector Therapy 11/07/20 11/09/20 Joelle Wilkins NP [address] [place] [address] [email or web address] Nurse Practitioner Medical Oncology 11/12/20 Kathia Quesada PA-C [address] [place] [address] [email or web address] Physician Oncology Account Specialist Hematology 02/14/21 Jose Cifuentes MD [facility] [address] [place] [address] [email or web address] Insurance Assigned Provider 02/02/20 01/04/22 Kem Amaya DO [address] [place] [address] 7 [place] [address] [email or web address] Insurance Assigned Provider 01/04/22 03/08/22 Paulette Fuchs DO [address] [place] [address] 7 [place] [address] [email or web address] Insurance Assigned Provider 03/08/22 07/05/22 Titus Arias DO [address] [place] [address] [email or web address] [email or web address].[facility]ITAL[facility] ThomasN[facility] Primary Oncologist Hematology and Oncology 06/02/22 Soha Louie MD [address] [place] [address] 7 [place] [address] [email or web address] Insurance Assigned Provider 07/05/22 11/01/22 Kem Amaya DO [address] [place] [address] 7 [place] [address] [email or web address] Insurance Assigned Provider 11/01/22 05/09/23 Clemente Brown MD [address] [place] [address] 7 [place] [address] [email or web address] Insurance Assigned Provider 05/09/23 10/03/23 Kem Amaya DO [address] [place] [address] 7 [place] [address] [email or web address] Insurance Assigned Provider 10/03/23 10/02/24 Jaylyn Chavira CNP [address] [place] [address], [address] [place] [address] [email or web address] Insurance Assigned Provider 10/02/24 documented as of this encounter Additional Source Comments The information contained in this document represents components of the legal health record. It is not the complete legal health record.[facility]
--- OUTSIDE RECORDS SUMMARY | 2025-04-26 17:54 | XMS_ITS | Encounter Summary ---
Author Organization [facility] Address [address] [facility] [address] [place] [address] Phone Care Team Providers Care Lead Software Test Engineer Name Role Phone Hugo Titus Ha DO Unavailable Noelle Alvarado MATERIAL ENGINEER Unavailable Joelle Wilkins HAT SPRAYER Unavailable [phone] Noelle Alvarado MATERIAL ENGINEER Primary Care Provider [phone] Kathia Quesada PA-C Unavailable Jose Cifuentes MD Unavailable SahKem carvalho DO Unavailable Paulette Fuchs DO Unavailable HugoTitus field DO Unavailable Soha Louie MD Unavailable SahKem carvalho DO Unavailable Clemente Brown MD Unavailable Jaylyn Chavira CNP Primary Care Provider Kem Amaya DO Unavailable Jaylyn Chavira CNP Unavailable Encounter Details Date Type Department Care Team (Late st Contact Info) Description 02/21/2021 Transcribe Orders [facility] [address] [place] [address] Ritu Manuel, LYUDMILA [address] [place] [address] Social History Tobacco Use Types Packs/Day Years [...] Date of Assessment Author No Risk Indicated 02/23/2021 10:44 AM EDT Lashanda Juan RN * [place] Suicide Severity Rating Scale (Screener/Recent Self-Report) Question Answer Date of Assessment Author 1. Wish to be (Past 1 Month) No 021 10:44 AM EDT Lashanda Emanuel RN 2. Non-Specific Active Suici arlette Thoughts (Past 1 Month) No 02/23/2021 10:44 AM EDT Sa nara Emanuel RN 6. Suicidal Behavior (Lifetime) No 10:44 AM EDT Lashanda Emanuel RN documented as of this encounter Plan of Treatment Upcoming Encounters Date Type Department Care Team (Late st Contact Info) Description 10/03/2024 Procedure Pass [facility] [address] [place] [address] 09/11/2025 12:30 PM EDT Office Visit [facility] Medicine [address] [place] [address] Jaylyn Chavira, LYUDMILA [address] [facility], [address] [place] [address] 09/15/2025 10:00 AM EDT Office Visit [facility] 30 [place] [address] Titus Arias DO [address] [place] [address] [email or web address] 09/29/2025 8:30 AM EDT Appointment [facility], [address] [address] Jaylyn Chavira CNP [address] [facility], [facility] 7 [place] [address] [email or web address] documented as of this encounter Visit Diagnoses [...] documented as of this encounter Care Teams Lead Software Test Engineer Relationship Specialty Start Date End Date Noelle Alvarado CNP 15 [facility], [address] [place] [address] PCP - General Family Medicine 11/21/20 07/08/23 Jaylyn Chavira CNP [address] [facility], [facility] 7 [place] [address] [email or web address] PCP - General Nurse Practitioner 07/09/23 Titus Arias DO 30 [place] [address] [email or web address] Primary Oncologist Hematology and Oncology 08/28/17 Noelle Alvarado CNP 15 [facility], [address] [place] [address] [email or web address] Family Medicine 01/10/19 Joelle Wilkins HAT SPRAYER [address] [place] [address] [email or web address] Nurse Practitioner Medical Oncology 11/12/20 Kathia Quesada PA-C [address] [place] [address] [email or web address] Physician Access Liaison Hematology 02/14/21 Jose Cifuentes MD [address] [place] [address] [address] [place] [address] [email or web address] Insurance Assigned Provider 02/02/20 01/04/22 Kem Amaya DO [address] [place] [address], [address] [place] [address] [email or web address] Insurance Assigned Provider 01/04/22 03/08/22 Paulette Fuchs DO [address] [place] [address], [address] [place] [address] [email or web address] Insurance Assigned Provider 03/08/22 07/05/22 Titus Arias DO [address] [place] [address] [email or web address] Primary Oncologist Hematology and Oncology 06/02/22 Soha Louie MD [address] [facility], [address] [place] [address] Insurance Assigned Provider 07/05/22 11/01/22 Kem Amaya DO [address] [place] [address], [address] [place] [address] Insurance Assigned Provider 11/01/22 05/09/23 Clemente Brown MD [address] [place] [address], [address] [place] [address] Insurance Assigned Provider 05/09/23 10/03/23 Kem Amaya DO [address] [place] [address], [address] [place] [address] Insurance Assigned Provider 10/03/23 10/02/24 Jaylyn Chavira CNP [address] [place] [address], [address] [place] [address] Insurance Assigned Provider 10/02/24 documented as of this encounter Additional Source Comments The information contained in this document represents components of the legal health record. It is not the complete legal health record.[facility]
--- OUTSIDE RECORDS SUMMARY | 2025-04-26 17:55 | XMS_ITS | Encounter Summary ---
Author Organization [facility] Address [address] [facility] [address] [place] [address] Phone Care Team Providers Care Analog Circuit Designer Name Role Phone Hugo Titus Ha DO Unavailable Noelle Alvarado CLOTH CARRIER Unavailable Noelle Alvarado [facility] Primary Care Provider [phone] Onur Olivarez OT Unavailable Joelle Wilkins MASK DESIGN ENGINEER Unavailable Jose Cifuentes MD Primary Care Provider [phone] Noelle Alvarado [facility] Primary Care Provider [phone] Kathia Quesada PA-C Unavailable Jose Cifuentes MD Unavailable SahKem carvalho DO Unavailable Paulette Fuchs DO Unavailable Hugo Titus Ha DO Unavailable Soha Louie MD Unavailable SahKem carvalho DO Unavailable Clemente Brown MD Unavailable Jaylyn Chavira CLOTH CARRIER Primary Care Provider Kem Amaya DO Unavailable Jaylyn Chavira CLOTH CARRIER Unavailable Encounter Details Date Type Department Care Team (Late st Contact Info) Description 11/06/2020 Procedure Pass [facility] [place] Scan [address] [address] Social History Tobacco Use Types Packs/Day Years [...] Date of Assessment Author No Risk Indicated 11/06/2020 7:15 PM EDT Lashanda [place], BILL * [place] Suicide Severity Rating Scale (Screener/Recent Self-Report) Question Answer Date of Assessment Author 1. Wish to be (Past 1 Month) No 021 7:15 PM EDT Lashanda Emanuel, BILL 2. Non-Specific Active Suici arlette Thoughts (Past 1 Month) No 11/06/2020 7:15 PM EDT Eber Emanuel, BILL 6. Suicidal Behavior (Lifetime) No 7:15 PM EDT Lashanda Emanuel, BILL documented as of this encounter Plan of Treatment Upcoming Encounters Date Type Department Care Team (Late st Contact Info) Description 10/03/2024 Procedure Pass [facility] [address] [place] [address] 09/11/2025 12:30 PM EDT Office Visit [facility] Medicine [address] [place] [address] Jaylyn Chavira, LYUDMILA [address] [facility], [address] [place] [address] 09/15/2025 10:00 AM EDT Office Visit [facility] at [facility] 30 [place] [address] Titus Arias DO [address] [place] [address] [email or web address] [email or web address] 09/29/2025 8:30 AM EDT Appointment [facility], [address] [address] Jaylyn Chavira CNP [address] [facility], [address] [place] [address] [email or web address] documented as of this encounter Visit Diagnoses Not on filedocumented in this encounter Additional Health Concerns Infection Onset Date Last Indicated Resolved Time COVID-19 10/23/2020 10/23/2020 11/13/2020 1:24 AM EDT CoV-Risk 11/05/2021 11/05/2021 11/16/2021 1:22 AM EDT CoV-Risk 06/04/2022 06/04/2022 06/15/2022 1:22 AM EST CoV-Risk 10/14/2024 10/14/2024 10/25/2024 1:23 AM EDT Assessment Noted Time PHQ-2 Depression Total Score: 0 12/30/19 19 1:35 PM EDT documented as of this encounter Care Teams Analog Circuit Designer Relationship Specialty Start Date End Date Noelle Alvarado CNP [address] [facility], 2nd [place] [address] [email or web address] PCP - General Family Medicine 07/11/20 11/12/20 Jose Cifuentes MD [address] [facility]. [address] [place] [address] [email or web address] PCP - General Family Medicine 11/13/20 11/20/20 Noelle Alvarado CNP [address] [address] [email or web address] PCP - General Family Medicine 11/21/20 07/08/23 Jaylyn Chavira CNP [address] [place] [address], [address] [place] [address] [email or web address] PCP - General Nurse Practitioner 07/09/23 Titus Arias DO [address] [place] [address] [email or web address] Primary Oncologist Hematology and Oncology 08/28/17 Noelle Alvarado CNP [address] [place] [address] [email or web address] Family Medicine 01/10/19 Onur Olivarez OT [address] [place] [address] [email or web address] Transitions Sole Sewer HandCandlemaking Laborer Therapy 11/07/20 11/09/20 Joelle Wilkins NP [address] [place] [address] [email or web address] Nurse Practitioner Medical Oncology 11/12/20 Kathia Quesada PA-C [address] [place] [address] [email or web address] Physician Soaping Machine Back Tender Hematology 02/14/21 Jose Cifuentes MD [address] [place] [address] [address] [place] [phone] [email or web address] Insurance Assigned Provider 02/02/20 01/04/22 Kem Amaya DO [address] [place] [address], [address] [place] [address] [email or web address] Insurance Assigned Provider 01/04/22 03/08/22 Paulette Fuchs DO [address] [place] [address] [place] [address] [email or web address] Insurance Assigned Provider 03/08/22 07/05/22 Titus Arias DO [address] [place] [address] [email or web address] Primary Oncologist Hematology and Oncology 06/02/22 Soha Louie MD [address] [place] [address] 7 [place] [address] [email or web address] Insurance Assigned Provider 07/05/22 11/01/22 Kem Amaya DO [address] [place] [address] 7 [place] [address] [email or web address] Insurance Assigned Provider 11/01/22 05/09/23 Clemente Brown MD [address] [place] [address], [facility] 7 [place] [address] [email or web address] Insurance Assigned Provider 05/09/23 10/03/23 Kem Amaya DO [address] [place] [address], [facility] 7 [place] [address] [email or web address] Insurance Assigned Provider 10/03/23 10/02/24 Jaylyn Chavira CNP [address] [place] [address] 7 [place] [address] [email or web address] Insurance Assigned Provider 10/02/24 documented as of this encounter Additional Source Comments The information contained in this document represents components of the legal health record. It is not the complete legal health record.[facility]
--- OUTSIDE RECORDS SUMMARY | 2025-04-26 17:55 | XMS_ITS | Encounter Summary ---
Author Organization [facility] Address [address] [place] [address] Phone Care Team Providers Care Petroleum Blending Plant Operator Name Role Phone Titus Arias DO Unavailable [phone] Natasha Bah MD Unavailable [phone] Jose Cifuentes MD Primary Care Provider [phone] GoshenNoelle wayne [facility] Primary Care Provider [phone] Jose Cifuentes MD Primary Care Provider [phone] JennyNoelle wayne LAYDOWN MACHINE OPERATOR Primary Care Provider [phone] Goshen, Noelle Berna LAYDOWN MACHINE OPERATOR Unavailable Jenny, Noelle Berna LAYDOWN MACHINE OPERATOR Primary Care Provider [phone] Jose Cifuentes MD Primary Care Provider [phone] GoshenNoelle wayne LAYDOWN MACHINE OPERATOR Primary Care Provider [phone] Jose Cifuentes MD Unavailable Jose Cifuentes MD Primary Care Provider [phone] Goshen, Noelle Coronel LAYDOWN MACHINE OPERATOR Primary Care Provider [phone] Jose Cifuentes MD Primary Care Provider [phone] Goshen, Noelle Morehouse LAYDOWN MACHINE OPERATOR Primary Care Provider [phone] Onur Olivarez OT Unavailable Jamar Olivareza OT Unavailable [phone] FrankyJoelle Noé CHEMICAL EQUIPMENT CONTROLLER Unavailable Jose Cifuentes MD Primary Care Provider [phone] Jenny Noellekayley Coronel LAYDOWN MACHINE OPERATOR Primary Care Provider [phone] Dipak Kathia J PA-C Unavailable Jose Cifuentes MD Unavailable Sahd, Kem Kidd DO Unavailable Paulette Fuchs DO Unavailable Hugo Titus Ha DO Unavailable Soha Louie MD Unavailable Sahd, Kem Kidd DO Unavailable Clemente Brown MD Unavailable Jaylyn Chavira [facility] Primary Care Provider Sahd, Kem Kidd DO Unavailable Jaylyn Chavira LAYDOWN MACHINE OPERATOR Unavailable Encounter Details Date Type Department Care Team (Late st Contact Info) Description 10/04/2017 Procedure [facility] [place] [address] [address] Social History Tobacco Use Types Packs/Day Years [...] (Late st Contact Info) Description 10/03/2024 Procedure [facility], [facility]- [address] [address] 09/11/2025 12:30 PM EDT Office Visit [facility] [address] [place] [address] Jaylyn Chavira, LYUDMILA 234 [facility], [facility] 7 [place] [address] [email or web address] 09/15/2025 10:00 AM EDT Office Visit [facility] [address] [place] [address] Titus Arias DO [address] [place] [address] [email or web address] 09/29/2025 8:30 AM EDT Appointment [facility] [address] [place] [address] Jaylyn Chavira, LYUDMILA 234 [facility], [facility] 7 [place] [address] [email or web address] documented as of this encounter Visit Diagnoses [...] CoV-Risk 10/14/2024 10/14/2024 10/25/2024 1:23 AM EDT documented as of this encounter Care Teams Petroleum Blending Plant Operator Relationship Specialty Start Date End Date Jose Cifuentes MD [address] [place] [phone] [email or web address] PCP - General Family Medicine 10/04/17 10/04/17 Noelle Alvarado, LAYDOWN MACHINE OPERATOR [address] [address] [email or web address] PCP - General Family Medicine 10/05/17 03/04/18 Jose Cifuentes MD [address] [place] [phone] [email or web address] PCP - General Family Medicine 03/05/18 03/22/18 Noelle Alvarado LAYDOWN MACHINE OPERATOR [address] [address] [email or web address] PCP - General Family Medicine 03/23/18 01/09/19 Noelle Alvarado, LAYDOWN MACHINE OPERATOR [address] [address] [email or web address] PCP - General Family Medicine 01/10/19 11/15/19 Jose Cifuentes MD [address] [place] [phone] [email or web address] PCP - General Family Medicine 11/16/19 12/26/19 Noelle Alvarado, LAYDOWN MACHINE OPERATOR [address] [address] [email or web address] PCP - General Family Medicine 12/27/19 05/07/20 Jose Cifuentes MD [address] [place] [phone] [email or web address] PCP - General Family Medicine 05/08/20 05/14/20 Noelle Alvarado LAYDOWN MACHINE OPERATOR [address] [address] [email or web address] PCP - General Family Medicine 05/15/20 07/04/20 Jose Cifuentes MD [address] [place] [phone] [email or web address] PCP - General Family Medicine 07/05/20 07/10/20 Noelle Alvarado LAYDOWN MACHINE OPERATOR [address] [address] [email or web address] PCP - General Family Medicine 07/11/20 11/12/20 Jose Cifuentes MD [address] [place] [phone] [email or web address] PCP - General Family Medicine 11/13/20 11/20/20 Noelle Alvarado CNP [address] [address] [email or web address] PCP - General Family Medicine 11/21/20 07/08/23 Jaylyn Chavira CNP [address] [place] [address] [address] [place] [address] [email or web address] PCP - General Nurse Practitioner 07/09/23 Titus Arias DO [address] [place] [address] [email or web address]ENTERMARIBETH ThomasAUGUST[facility] Primary Oncologist Hematology and Oncology 08/28/17 Natasha Bah MD [address] [place] [address] 7 [place] [address] [email or web address] Insurance Assigned Provider 09/26/17 02/02/20 Noelle Alvarado CNP [address] [place] [address], [address] [place] [address] [email or web address] Family Medicine 01/10/19 Jose Cifuentes MD [address] [place] [address] [address] [place] [phone] [email or web address] Insurance Assigned Provider 02/02/20 07/10/20 Onur Olivarez, OT [address] [place] [address] [email or web address] Miner Blasting Therapy 10/24/20 10/24/20 Onur Olivarez, OT [address] [place] [address] [email or web address] SurveyorQuartz Miner Blasting Therapy 11/07/20 11/09/20 Joelle Wilkins NP [address] [place] [address] [email or web address] Nurse Practitioner Medical Oncology 11/12/20 Kathia Quesada PA-C [address] [place] [address] [email or web address] Physician Tile Sorter Hematology 02/14/21 Jose Cifuentes MD [address] [place] [address] [address] [place] [phone] [email or web address] Insurance Assigned Provider 02/02/20 01/04/22 Kem Amaya DO [address] [place] [address], [facility] [address] [place] [address] [email or web address] Insurance Assigned Provider 01/04/22 03/08/22 Paulette Fuchs DO [address] [place] [address] 7 [place] [address] [email or web address] Insurance Assigned Provider 03/08/22 07/05/22 Titus Arias DO [address] [place] [address] [email or web address] Primary Oncologist Hematology and Oncology 06/02/22 Soha Louie MD [address] [place] [address], [address] [place] [address] [email or web address] Insurance Assigned Provider 07/05/22 11/01/22 Kem Amaya DO [address] [place] [address], [address] [place] [address] [email or web address] Insurance Assigned Provider 11/01/22 05/09/23 Clemente Brown MD 234 [facility], [address] [place] [address] [email or web address] Insurance Assigned Provider 05/09/23 10/03/23 Kem Amaya DO [address] [place] [address], [address] [place] [address] [email or web address] Insurance Assigned Provider 10/03/23 10/02/24 Jaylyn Chavira CNP 234 [facility], [address] [place] [address] [email or web address] Insurance Assigned Provider 10/02/24 documented as of this encounter Additional Source Comments The information contained in this document represents components of the legal health record. It is not the complete legal health record.[facility]
--- OUTSIDE RECORDS SUMMARY | 2025-04-26 17:55 | XMS_ITS | Encounter Summary ---
Author Organization [facility] Address [address] [place] [address] Phone Care Team Providers Care Shuttler Name Role Phone Titus Arias DO Unavailable [phone] Natasha Bah MD Unavailable [phone] Noelle Alvarado ANTISQUEAK APPLIER Unavailable [phone] Noelle Alvarado [facility] Primary Care Provider [phone] Jose Cifuentes MD Primary Care Provider JennyNoelle wayne [facility] Primary Care Provider [phone] Jose Cifuentes MD Unavailable Jose Cifuentes MD Primary Care Provider [phone] Noelle Alvarado [facility] Primary Care Provider [phone] Jose Cifuentes MD Primary Care Provider [phone] JennyNoelle wayne [facility] Primary Care Provider [phone] Onur Olivarez OT Unavailable [phone] Onur Olivarez OT Unavailable [phone] Joelle Wilkins WEB UI DESIGNER Unavailable [phone] Jose Cifuentes MD Primary Care Provider [phone] Noelle Alvarado ANTISQUEAK APPLIER Primary Care Provider [phone] Kathia Quesada PA-C Unavailable Jose Cifuentes MD Unavailable Sahmaia Kem Marti DO Unavailable Paulette Fuchs DO Unavailable Titus Arias DO Unavailable Soha Louie MD Unavailable Sahd, Kem Kidd DO Unavailable Clemente Brown MD Unavailable CaitToman ANTISQUEAK APPLIER Primary Care Provider SahmaiaKem DO Unavailable Jaylyn Chavira ANTISQUEAK APPLIER Unavailable Encounter Details Date Type Department Care Team (Late st Contact Info) Description 04/05/2019 Ancillary Orders [facility] [address] [place] [address] Jose Cifuentes MD 234 [facility]. [address] [place] [address] [email or web address] Breast screening Social History Tobacco Use Types [...] st Contact Info) Description 10/03/2024 Procedure [facility], [facility] [address] [place] [address] 09/11/2025 12:30 PM EDT Office Visit [facility] [address] [place] [address] Jaylyn Chavira, ANTISQUEAK APPLIER 234 [facility], [address] [place] [address] 09/15/2025 10:00 AM EDT Office Visit [facility] at [address] [address] Titus Arias DO [address] [place] [address] [email or web address] [email or web address] 09/29/2025 8:30 AM EDT Appointment [facility], [address] [address] Jaylyn Chavira, ANTISQUEAK APPLIER 234 [facility], [facility] 7 [place] [address] [email or web address] documented as of this encounter Results * BI MAMMOGRAM SCREENING WITH TOMOSYNTHESIS WITH CAD (BILATERAL) (06/28/2019 8:57 AM EST) Anatomical Region Laterality Modality Breast Left, Breast Right, Breast Bilateral Bila teral Mammography 06/28/2019 9:16 AM EST Impressions 06/28/2019 9:18 AM EST No mammographic evidence of malignancy. BI-RADS CATEGORY: 1 - Negative. DENSITY: There are scattered fibroglandular densities. POS - [id number] Narrative 06/28/2019 9:18 AM EST Standard digital full-field 2-D C view and two-plane tomographic imaging was performed and compared with multiple prior studies, most recently 06/24/2018, with utilization of computer-aided detection. The breasts are composed of scattered fibroglandular densities. The stromal markings are essentially unchanged in overall appearance and distribution. No dominant spiculated mass, suspicious clustered microcalcifications, or focal zone of pathologic skin thickening or retraction are noted to have arisen in the interim. Procedure Note Ash Durant MD - 06/28/2019 Standard digital full-field 2-D C view and two-plane tomographic imagingwas performed and compared with multiple prior studies, most wdrouyak26/27/2018, with utilization of computer-aided detection. The breasts are composed of scattered fibroglandular densities. Thestromal markings are essentially unchanged in overall appearance anddistribution. No dominant spiculated mass, suspicious clusteredmicrocalcifications, or focal zone of pathologic skin thickening orretraction are noted to have arisen in the interim. IMPRESSION: No mammographic evidence of malignancy. BI-RADS CATEGORY: 1 - Negative. DENSITY: There are scattered fibroglandular densities. POS - [id number] Jose Cifuentes MD IMG MG EXAMS Final Res ult documented in this encounter Visit Diagnoses Diagnosis [...] documented as of this encounter Care Teams Shuttler Relationship Specialty Start Date End Date Noelle Alvarado CNP 15 [facility], 2nd [place] [address] [email or web address] PCP - General Family Medicine 01/10/19 11/15/19 Jose Cifuentes MD [address] [place] [phone] [email or web address] PCP - General Family Medicine 11/16/19 12/26/19 Noelle Alvarado, ANTISQUEAK APPLIER [address] [address] [email or web address] PCP - General Family Medicine 12/27/19 05/07/20 Jose Cifuentes MD [address] [place] [phone] [email or web address] PCP - General Family Medicine 05/08/20 05/14/20 Noelle Alvarado, ANTISQUEAK APPLIER [address] [address] [email or web address] PCP - General Family Medicine 05/15/20 07/04/20 Jose Cifuentes MD [address] [place] [phone] [email or web address] PCP - General Family Medicine 07/05/20 07/10/20 Noelle Alvarado, ANTISQUEAK APPLIER [address] [address] [email or web address] PCP - General Family Medicine 07/11/20 11/12/20 Jose Cifuentes MD [address] [place] [address] [address] [place] [phone] [email or web address] PCP - General Family Medicine 11/13/20 11/20/20 Noelle Alvarado CNP [address] [place] [address] [email or web address] PCP - General Family Medicine 11/21/20 07/08/23 Jaylyn Chavira CNP [address] [place] [address] 7 [place] [address] [email or web address] PCP - General Nurse Practitioner 07/09/23 Titus Arias DO [address] [place] [address] [email or web address] Primary Oncologist Hematology and Oncology 08/28/17 Natasha Bah MD [address] [place] [address] 7 [place] [address] [email or web address] Insurance Assigned Provider 09/26/17 02/02/20 Noelle Alvarado, ANTISQUEAK APPLIER [address] [place] [address] [email or web address] Family Medicine 01/10/19 Jose Cifuentes MD [address] [place] [address] [address] [place] [phone] [email or web address] Insurance Assigned Provider 02/02/20 07/10/20 Onur Olivarez OT [address] [place] [address] [email or web address] Transitions Ornamental Metal ErectorBoring Machine Operator Production Therapy 10/24/20 10/24/20 Onur Olivarez, OT [address] [place] [address] [email or web address] Transitions Ornamental Metal ErectorBoring Machine Operator Production Therapy 11/07/20 11/09/20 Joelle Wilkins, WEB UI DESIGNER [address] [place] [address] [email or web address] Nurse Practitioner Medical Oncology 11/12/20 Kathia Quesada PA-C [address] [place] [address] [email or web address] Physician Manager Performance Improvement Hematology 02/14/21 Jose Cifuentes MD [address] [place] [address] [address] [place] [address] [email or web address] Insurance Assigned Provider 02/02/20 01/04/22 Kem Amaya DO [address] [place] [address] [address] [place] [address] [email or web address] Insurance Assigned Provider 01/04/22 03/08/22 Paulette Fuchs DO [address] [place] [address] 7 [place] [address] [email or web address] Insurance Assigned Provider 03/08/22 07/05/22 Titus Arias DO [address] [place] [address] [email or web address] Primary Oncologist Hematology and Oncology 06/02/22 Soha Louie MD [address] [place] [address], [address] [place] [address] Insurance Assigned Provider 07/05/22 11/01/22 Kem Amaya DO [address] [place] [address], [address] [place] [address] [email or web address] Insurance Assigned Provider 11/01/22 05/09/23 Clemente Brown MD [address] [place] [address], [address] [place] [address] [email or web address] Insurance Assigned Provider 05/09/23 10/03/23 Kem Amaya DO [address] [place] [address], [address] [place] [address] [email or web address] Insurance Assigned Provider 10/03/23 10/02/24 Jaylyn Chavira CNP [address] [place] [address], [address] [place] [address] Insurance Assigned Provider 10/02/24 documented as of this encounter Additional Source Comments The information contained in this document represents components of the legal health record. It is not the complete legal health record.[facility]
--- OUTSIDE RECORDS SUMMARY | 2025-04-26 17:55 | XMS_ITS | Encounter Summary ---
Author Organization [facility] Address [address] [place] [address] Phone Care Team Providers Care Architect Intern Name Role Phone Titus Arias DO Unavailable [phone] Natasha Bah MD Unavailable [phone] Noelle Alvarado GOVERNMENT GUARD Unavailable [phone] Noelle Alvarado [facility] Primary Care Provider [phone] Jose Cifuentes MD Primary Care Provider JennyNoelle wayne [facility] Primary Care Provider [phone] Jose Cifuentes MD Unavailable Jose Cifuentes MD Primary Care Provider [phone] Noelle Alvarado [facility] Primary Care Provider [phone] Jose Cifuentes MD Primary Care Provider [phone] JennyNoelle wayne [facility] Primary Care Provider [phone] Onur Olivarez OT Unavailable [phone] Onur Olivarez OT Unavailable [phone] Joelle Wilkins CREATIVE DIRECTOR Unavailable [phone] Jose Cifuentes MD Primary Care Provider [phone] Noelle Alvarado GOVERNMENT GUARD Primary Care Provider [phone] Kathia Quesada PA-C Unavailable Jose Cifuentes MD Unavailable Sahd Kem Marti DO Unavailable Paulette Fuchs DO Unavailable Titus Arias DO Unavailable Soha Louie MD Unavailable Sahd, Kem Kidd DO Unavailable Clemente Brown MD Unavailable TurtonJaylyn proctor GOVERNMENT GUARD Primary Care Provider SahmaiaKem DO Unavailable Jaylyn Chavira GOVERNMENT GUARD Unavailable Encounter Details Date Type Department Care Team (Late st Contact Info) Description 07/04/[address] [place] [address] Social History Tobacco Use Types Packs/Day Years [...] PM EDT documented as of this encounter Last Filed Vital Signs Vital Sign Reading Time Taken Comments Blood Pressure - - Pulse - - Temperature - - Respiratory Rate - - Oxygen Saturation - - Inhaled Oxygen Concentration - - Weight 83.5 kg (184 lb) 07/05/2019 3:00 PM EST Height 165.1 cm (5' 5 ) 07/05/2019 3:00 PM EST Body Mass Index 30.62 07/05/2019 3:00 PM EST documented in this encounter Plan of Treatment Upcoming Encounters Date Type Department Care Team (Late st Contact Info) Description 10/03/[address] [address] 09/11/2025 12:30 PM EDT Office Visit [facility] [address] [place] [address] Jaylyn Chavira CNP 234 [facility], [address] [place] [address] 09/15/2025 10:00 AM EDT Office [facility] 30 [place] [address] Titus Arias DO 30 [place] [address] [email or web address] 09/29/2025 8:30 AM EDT Appointment [facility] 30 [place] [address] Jaylyn Chavira CNP 234 [facility], [facility] 7 [place] [address] documented as of this encounter Visit Diagnoses [...] documented as of this encounter Care Teams Architect Intern Relationship Specialty Start Date End Date Noelle Alvarado CNP [address] [address] [email or web address] PCP - General Family Medicine 01/10/19 11/15/19 Jose Cifuentes MD [address] [place] [phone] [email or web address] PCP - General Family Medicine 11/16/19 12/26/19 Noelle Alvarado CNP [address] [place] [address] [email or web address] PCP - General Family Medicine 12/27/19 05/07/20 Jose Cifuentes MD [address] [place] [phone] [email or web address] PCP - General Family Medicine 05/08/20 05/14/20 oNelle Alvarado CNP [address] [address] [email or web address] PCP - General Family Medicine 05/15/20 07/04/20 Jose Cifuentes MD [address] [place] [address] [email or web address] PCP - General Family Medicine 07/05/20 07/10/20 Noelle Alvarado CNP [address] [address] [email or web address] PCP - General Family Medicine 07/11/20 11/12/20 Jose Cifuentes MD [address] [place] [address] [address] [place] [address] [email or web address] PCP - General Family Medicine 11/13/20 11/20/20 Noelle Alvarado CNP [address] [place] [address] [email or web address] PCP - General Family Medicine 11/21/20 07/08/23 Jaylyn Chavira CNP [address] [place] [address] 7 [place] [address] [email or web address] PCP - General Nurse Practitioner 07/09/23 Titus Arias DO [address] [place] [address] [email or web address] Primary Oncologist Hematology and Oncology 08/28/17 Natasha Bah MD [address] [place] [address] 7 [place] [address] [email or web address] Insurance Assigned Provider 09/26/17 02/02/20 Noelle Alvarado, GOVERNMENT GUARD [address] [place] [address] [email or web address] Family Medicine 01/10/19 Jose Cifuentes MD [address] [place] [address] [address] [place] [address] [email or web address] Insurance Assigned Provider 02/02/20 07/10/20 Onur Olivarez, OT 10 [place] [address] [email or web address] Transitions Stone [email or web address] Solution Analyst Therapy 10/24/20 10/24/20 Onur Olivarez, OT 10 [place] [address] [email or web address] Transitions Stone SandblasterBusiness Solution Analyst Therapy 11/07/20 11/09/20 Joelle Wilkins NP [address] [address] [email or web address] Nurse Practitioner Medical Oncology 11/12/20 Kathia Quesada PA-C [address] [place] [address] [email or web address] Physician Epic Specialist Hematology 02/14/21 Jose Cifuentes MD [address] [place] [address] [address] [place] [phone] [email or web address] Insurance Assigned Provider 02/02/20 01/04/22 Kem Amaya DO [address] [place] [address], [address] [place], [place] [id number] [email or web address] Insurance Assigned Provider 01/04/22 03/08/22 Paulette Fuchs DO [address] [place] [address], [address] [place], [place] [phone] Insurance Assigned Provider 03/08/22 07/05/22 Titus Arias DO [address] [place] [address] [email or web address] Primary Oncologist Hematology and Oncology 06/02/22 Soha Louie MD [address] [place] [address] 7 [place] [address] [email or web address] Insurance Assigned Provider 07/05/22 11/01/22 Kem Amaya DO [address] [place] [address] 7 [place] [address] [email or web address] Insurance Assigned Provider 11/01/22 05/09/23 Clemente Brown MD [address] [place] [address] 7 [place] [address] [email or web address] Insurance Assigned Provider 05/09/23 10/03/23 Kem Amaya DO [address] [place] [address] 7 [place] [address] [email or web address] Insurance Assigned Provider 10/03/23 10/02/24 Jaylyn Chavira CNP [address] [place] [address] [address] [place] [id number] Insurance Assigned Provider 10/02/24 documented as of this encounter Additional Source Comments The information contained in this document represents components of the legal health record. It is not the complete legal health record.[facility]
--- OUTSIDE RECORDS SUMMARY | 2025-04-26 17:55 | XMS_ITS | Encounter Summary ---
Author Organization [facility] Address [address] [facility] [address] [place] [address] Phone Care Team Providers Care Gameplay Programmer Name Role Phone Noelle Alvarado HEATING AND VENTILATING TENDER Unavailable Joelle Wilkins SR. STRATEGIC SOURCING MANAGER Unavailable [phone] Kathia Quesada PA-C Unavailable [phone] Titus Arias DO Unavailable Jaylyn Chavira HEATING AND VENTILATING TENDER Primary Care Provider Jaylyn Chavira HEATING AND VENTILATING TENDER Unavailable [phone] Encounter Details Date Type Department Care Team (Late st Contact Info) Description 12/19/2024 Procedure Pass [facility] 30 [place] [address] Social History Tobacco Use Types Packs/Day Years [...] st Contact Info) Description 10/03/2024 Procedure Pass [address] [address] 09/11/2025 12:30 PM EDT Office Visit [facility] Medicine [address] [place] [address] Jaylyn Chavira, HEATING AND VENTILATING TENDER 234 [facility] 7 [place] [address] [email or web address] 09/15/2025 10:00 AM EDT Office [facility] at [address] [address] Titus Arias DO 30 [place] [address] [email or web address] 09/29/2025 8:30 AM EDT Appointment [address] [address] Jaylyn Chavira, HEATING AND VENTILATING TENDER 234 [facility], [address] [place] [address] [email or web address] documented as of this encounter Visit Diagnoses Not on filedocumented in this encounter Additional Health Concerns Assessment Noted Time PHQ-2 Depression Total Score: 1 07/09/19 24 3:59 PM EST documented as of this encounter Care Teams Gameplay Programmer Relationship Specialty Start Date End Date Raisa ChaviraghLYUDMILA cat [address] [facility], [facility] 7 [place] [address] [email or web address] PCP - General Nurse Practitioner 07/09/23 Noelle Alvarado CNP 15 [facility], 2nd [place] [address] [email or web address] Family Medicine 01/10/19 Joelle Wilkins NP [address] [place] [address] [email or web address] Nurse Practitioner Medical Oncology 11/12/20 Kathia Quesada PA-C 30 [place] [address] [email or web address] Physician Weaver Hand Loom Hematology 02/14/21 Titus Arias DO 30 [place] [address] [email or web address] Primary Oncologist Hematology and Oncology 06/02/22 Jaylyn Chavira CNP [address] [facility], [facility] 7 [place] [address] [email or web address] Insurance Assigned Provider 10/02/24 documented as of this encounter Additional Source Comments The information contained in this document represents components of the legal health record. It is not the complete legal health record.[facility]
--- OUTSIDE RECORDS SUMMARY | 2025-04-26 17:55 | XMS_ITS | Encounter Summary ---
Author Organization [facility] Address [address] [place] [address] Phone Care Team Providers Care Second Officer Name Role Phone Jose Cifuentes MD Primary Care Provider [phone] Jenny, Noelle Coronel ENERGY ENGINEER Primary Care Provider [phone] Titus Arias DO Unavailable Natasha Bah MD Unavailable [phone] Jose Cifuentes MD Primary Care Provider [phone] Jenny, Noelle Coronel ENERGY ENGINEER Primary Care Provider [phone] Jose Ciufentes MD Primary Care Provider [phone] Jenny, Noelle Coronel ENERGY ENGINEER Primary Care Provider [phone] Jenny, Noelle Berna ENERGY ENGINEER Unavailable [place], Noelle Alva ENERGY ENGINEER Primary Care Provider [phone] Jose Cifuentes MD Primary Care Provider [phone] [place], Noelle Coronel ENERGY ENGINEER Primary Care Provider [phone] Jose Cifuentes MD Unavailable Jose Cifuentes MD Primary Care Provider [phone] Jenny, Noelle Coronel ENERGY ENGINEER Primary Care Provider [phone] Jose Cifuentes MD Primary Care Provider [phone] NoorvikNoellez ENERGY ENGINEER Primary Care Provider [phone] Onur Olivarez OT Unavailable [phone] DeborahjoslynOnur OT Unavailable [phone] Franky Joelle Noé POWDERED SUGAR PULVERIZER OPERATOR Unavailable [phone] Jose Cifuentes MD Primary Care Provider [phone] Noelle Alvarado ENERGY ENGINEER Primary Care Provider [phone] Kathia Quesada PA-C Unavailable Jose Cifuentes MD Unavailable SahKem carvalho DO Unavailable Shila Paulette Luis DO Unavailable Hugo Qureshi Leland DO Unavailable Soha Louie MD Unavailable SahKem carvalho DO Unavailable Clemente Brown MD Unavailable Jaylyn Chavira [facility] Primary Care Provider SahKem carvalho DO Unavailable Jaylyn Chavira [facility] Unavailable Encounter Details Date Type Department Care Team (Late st Contact Info) Description 05/08/2017 Ancillary Orders [facility] Medicine [address] [place] [address] Jose Cifuentes MD 234 [facility]. [address] [place] [address] [email or web address] Screening breast examination Social History Tobacco Use Types Packs/Day Years Used Date Smoking Tobacco: Never Smokeless Tobacco: Never Comments Unknown Sex and Gender Information Value Date Recorded Sex Assigned at Female 10/04/2017 7:23 PM EDT Legal Sex Female 10:02 PM EDT Gender Identity Female 10/04/2017 7:23 PM EDT Sexual Orientation Straight 10/04/2017 7: 23 PM EDT documented as of this encounter Plan of Treatment Upcoming Encounters Date Type Department Care Team (Late st Contact Info) Description 10/03/2024 Procedure Pass [address] [address] 09/11/2025 12:30 PM EDT Office Visit [facility] Medicine [address] [place] [address] Jaylyn Chavira, ENERGY ENGINEER 234 [facility] 7 [place] [address] 09/15/2025 10:00 AM EDT Office Visit [facility] at [address] [address] Titus Arias DO 30 [place] [address] [email or web address] 09/29/2025 8:30 AM EDT Appointment [address] [address] Jaylyn Chavira, ENERGY ENGINEER 234 [facility] 7 [place] [address] documented as of this encounter Results * BI MAMMOGRAM SCREENING WITH TOMOSYNTHESIS WITH CAD (BILATERAL) (06/23/2017 9:24 AM EST) Anatomical Region Laterality Modality Breast Left, Breast Right, Breast Bilateral Bila teral Mammography 06/23/2017 10:0 9 AM EST Impressions 06/23/2017 10:10 AM EST Normal negative. Annual screening is recommended. Patient notified by letter. BI-RADS CATEGORY: 1 - Negative. DENSITY: The breast tissue is almost entirely fat. POS: [id number] Narrative 06/23/2017 10:10 AM EST Screening Mammogram, bilateral with utilization of computer aided detection and tomosynthesis as well as 2-D C view imaging. Comparison: Dating back to 2013 and the most recent prior examination dated 2015. Findings: No suspicious masses or suspicious clustered microcalcifications are present. No architectural distortion or significant asymmetry is present. Breasts are composed of predominantly fat Procedure Note Varinder Hayes MD - 06/23/2017 Screening Mammogram, bilateral with utilization of computer aideddetection and tomosynthesis as well as 2-D C view imaging. Comparison: Dating back to 2013 and the most recent prior examinationdated 2015. Findings: No suspicious masses or suspicious clustered microcalcificationsare present. No architectural distortion or significant asymmetry ispresent. Breasts are composed of predominantly fat IMPRESSION: Normal negative. Annual screening is recommended. Patient notified by letter. BI-RADS CATEGORY: 1 - Negative. DENSITY: The breast tissue is almost entirely fat. POS: [id number] Jose Cifuentes MD IMG MG EXAMS Final Res ult documented in this encounter Visit Diagnoses Diagnosis Screening breast examination Other screening breast examination Screening breast examination Other screening breast examination documented in this encounter Additional Health Concerns [...] documented as of this encounter Care Teams Second Officer Relationship Specialty Start Date End Date Jose Cifuentes MD [address] [place] [phone] [email or web address] PCP - General 04/16/17 08/09/17 Noelle Alvarado, ENERGY ENGINEER [address] [address] [email or web address] PCP - General 08/10/17 10/03/17 Jose Cifuentes MD [address] [place] [phone] [email or web address] PCP - General Family Medicine 10/04/17 10/04/17 Noelle Alvarado ENERGY ENGINEER [address] [address] [email or web address] PCP - General Family Medicine 10/05/17 03/04/18 Jose Cifuentes MD [address] [place] [phone] [email or web address] PCP - General Family Medicine 03/05/18 03/22/18 Noelle Alvarado, ENERGY ENGINEER [address] [address] [email or web address] PCP - General Family Medicine 03/23/18 01/09/19 Noelle Alvarado ENERGY ENGINEER [address] [address] [email or web address] PCP - General Family Medicine 01/10/19 11/15/19 Jose Cifuentes MD [address] [place] [phone] [email or web address] PCP - General Family Medicine 11/16/19 12/26/19 Noelle Alvarado, ENERGY ENGINEER [address] [address] [email or web address] PCP - General Family Medicine 12/27/19 05/07/20 Jose Cifuentes MD [address] [place] [phone] [email or web address] PCP - General Family Medicine 05/08/20 05/14/20 Noelle Alvarado, ENERGY ENGINEER [address] [address] [email or web address] PCP - General Family Medicine 05/15/20 07/04/20 Jose Cifuentes MD [address] [place] [phone] [email or web address] PCP - General Family Medicine 07/05/20 07/10/20 Noelle Alvarado, ENERGY ENGINEER [address] [address] [email or web address] PCP - General Family Medicine 07/11/20 11/12/20 Jose Cifuentes MD [address] [place] [address] [address] [place] [phone] [email or web address] PCP - General Family Medicine 11/13/20 11/20/20 Noelle Alvarado, ENERGY ENGINEER [address] [place] [address] [email or web address] PCP - General Family Medicine 11/21/20 07/08/23 Jaylyn Chavira CNP [address] [place] [address] 7 [place] [address] [email or web address] PCP - General Nurse Practitioner 07/09/23 Titus Arias DO [address] [place] [address] [email or web address] Primary Oncologist Hematology and Oncology 08/28/17 Natasha Bah MD [address] [place] [address] 7 [place] [address] [email or web address] Insurance Assigned Provider 09/26/17 02/02/20 Noelle Alvarado, ENERGY ENGINEER [address] [place] [address] [email or web address] Family Medicine 01/10/19 Jose Cifuentes MD [address] [place] [address] [address] [place] [phone] [email or web address] Insurance Assigned Provider 02/02/20 07/10/20 Onur Olivarez OT 10 [place] [address] [email or web address] Transitions Brush [employer] Professional Therapy 10/24/20 10/24/20 Onur Olivarez, OT 10 [place] [address] [email or web address] Transitions Brush [employer] Professional Therapy 11/07/20 11/09/20 Joelle Wilkins, POWDERED SUGAR PULVERIZER OPERATOR [address] [place] [address] [email or web address] Nurse Practitioner Medical Oncology 11/12/20 Kathia Quesada PA-C [address] [place] [address] [email or web address] Physician Beater Out Hematology 02/14/21 Jose Cifuentes MD [address] [place] [address] [address] [place] [address] [email or web address] Insurance Assigned Provider 02/02/20 01/04/22 Kem Amaya DO [address] [place] [address] [address] [place] [address] [email or web address] Insurance Assigned Provider 01/04/22 03/08/22 Paulette Fuchs DO [address] [place] [address] 7 [place] [address] [email or web address] Insurance Assigned Provider 03/08/22 07/05/22 Titus Arias DO [address] [place] [address] [email or web address] Primary Oncologist Hematology and Oncology 06/02/22 Soha Louie MD [address] [place] [address], [address] [place] [address] [email or web address] Insurance Assigned Provider 07/05/22 11/01/22 Kem Amaya DO [address] [place] [address], [address] [place] [address] [email or web address] Insurance Assigned Provider 11/01/22 05/09/23 Clemente Brown MD [address] [place] [address], [address] [place] [address] [email or web address] Insurance Assigned Provider 05/09/23 10/03/23 Kem Amaya DO [address] [place] [address], [address] [place] [address] [email or web address] Insurance Assigned Provider 10/03/23 10/02/24 Jaylyn Chavira CNP [address] [place] [address], [address] [place] [address] Insurance Assigned Provider 10/02/24 documented as of this encounter Additional Source Comments The information contained in this document represents components of the legal health record. It is not the complete legal health record.[facility]
--- OUTSIDE RECORDS SUMMARY | 2025-04-26 17:55 | XMS_ITS | Encounter Summary ---
Author Organization [facility] Address [address] [facility] ([place], [place]) [address] [place] [address] Phone Care Team Providers Care Mock Up Maker Name Role Phone Noelle Alvarado PRODUCT DIRECTOR Unavailable Joelle Wilkins OIL REFINERY PROCESS TECHNICIAN Unavailable [phone] Kathia Quesada PA-C Unavailable [phone] Titus Arias DO Unavailable Jaylyn Chavira PRODUCT DIRECTOR Primary Care Provider [phone] Jaylyn Chavira PRODUCT DIRECTOR Unavailable Encounter Details Date Type Department Care Team (Late st Contact Info) Description 12/28/2024 Procedure Pass [facility], Ct Scan - [address] [address] Social History Tobacco Use Types Packs/Day Years [...] as food, clothing, or medical care? No 12/28/2024 In the past 12 months have y ou been in a relationship with a person who hurts, threatens, or tries to control you? No 12/28/2024 Are you denied basic needs s uch as food, clothing, or medical care? No 12/28/2024 In the past 12 months have y ou been in a relationship with a person who hurts, threatens, or tries to control you? No 12/28/2024 Comments No Sex and Gender Information Value Date Recorded Sex Assigned at Female 10/04/2017 7:23 PM EDT Legal Sex Female 10:02 PM EDT Gender Identity Female 10/04/2017 7:23 PM EDT Sexual Orientation Straight 10/04/2017 7: 23 PM EDT documented as of this encounter Functional Status * Calculated C-SSRS Risk Score (Lifetime/Recent) Answer Date of Assessment Author No Risk Indicated 12/28/2024 5:12 PM EDT Esther Caicedo RN * Hodgeman Suicide Severity Rating Scale (Screener/Recent Self-Report) Question Answer Date of Assessment Author 1. Wish to be (Past 1 Month) No 025 5:12 PM EDT Esther Pena RN 2. Non-Specific Active Suici arlette Thoughts (Past 1 Month) No 12/28/2024 5:12 PM EDT Vangie Pena RN 6. Suicidal Behavior (Lifetime) No 5:12 PM EDT Esther Pena RN documented as of this encounter Plan of Treatment Upcoming Encounters Date Type Department Care Team (Late st Contact Info) Description 10/03/2024 Procedure Pass [facility] [address] [place] [address] 09/11/2025 12:30 PM EDT Office Visit [facility] [address] [place] [address] Jaylyn Chavira, LYUDMILA 234 [facility], [address] [place] [address] 09/15/2025 10:00 AM EDT Office [facility] at [facility] [address] [place] [address] Titus Arias DO 30 [place] [address] [email or web address] 09/29/2025 8:30 AM EDT Appointment [facility], [facility] [address] [place] [address] Jaylyn Chavira CNP 234 [facility], [facility] 7 [place] [address] documented as of this encounter Visit Diagnoses Not on filedocumented in this encounter Additional Health Concerns Assessment Noted Time PHQ-2 Depression Total Score: 1 07/09/19 24 3:59 PM EST documented as of this encounter Care Teams Mock Up Maker Relationship Specialty Start Date End Date Jaylyn Chavira CNP 234 [facility] 7 [place] [address] PCP - General Nurse Practitioner 07/09/23 Noelle Alvarado CNP 15 [facility], [address]nd [place] [address] Family Medicine 01/10/19 Joelle Wilkins, OIL REFINERY PROCESS TECHNICIAN [address] [place] [address] Nurse Practitioner Medical Oncology 11/12/20 Kathia Quesada PA-C [address] [place] [address] Physician Rn Otolaryngology Hematology 8/19/21 Titus Arias DO [address] [place] [address] [email or web address] Primary Oncologist Hematology and Oncology 06/02/22 Jaylyn Chavira CNP [address] [place] [address], [address] [place] [address] [email or web address] Insurance Assigned Provider 10/02/24 documented as of this encounter Additional Source Comments The information contained in this document represents components of the legal health record. It is not the complete legal health record.[facility]
--- OUTSIDE RECORDS SUMMARY | 2025-04-26 17:55 | XMS_ITS | Encounter Summary ---
Author Organization [facility] Address [address] [facility] [address] [place] [address] Phone Care Team Providers Care Workers Compensation Claims Specialist Name Role Phone Noelle Alvarado SHARED SERVICES REPRESENTATIVE Unavailable Joelle Wilkins LOAN SERVICE OFFICER Unavailable [phone] Kathia Quesada PA-C Unavailable [phone] Titus Arias DO Unavailable Jaylyn Chavira SHARED SERVICES REPRESENTATIVE Primary Care Provider Jaylyn Chavira SHARED SERVICES REPRESENTATIVE Unavailable Encounter Details Date Type Department Care Team (Late st Contact Info) Description 01/24/2025 Procedure Pass [facility], [address] [address] Social History Tobacco Use Types Packs/Day Years [...] st Contact Info) Description 10/03/2024 Procedure Pass [address] [address] 09/11/2025 12:30 PM EDT [facility] Visit [facility] [address] [address] Jaylyn Chavira, LYUDMILA 234 [facility] 7 [place] [address] 09/15/2025 10:00 AM EDT Office Visit [facility] at [address] [address] Titus Arias DO 30 [place] [address] [email or web address] 09/29/2025 8:30 AM EDT Appointment [address] [address] Jaylyn Chavira, LYUDMILA 234 [facility], [facility] 7 [place] [address] [email or web address] documented as of this encounter Visit Diagnoses Not on filedocumented in this encounter Additional Health Concerns Assessment Noted Time PHQ-2 Depression Total Score: 2 01/25/20 25 2:15 PM EDT documented as of this encounter Care Teams Workers Compensation Claims Specialist Relationship Specialty Start Date End Date Jaylyn Chavira CNP 234 [facility] 7 [place] [address] [email or web address] PCP - General Nurse Practitioner 07/09/23 Noelle Alvarado CNP [address] [place] [address], [address] [place] [address] [email or web address] Family Medicine 01/10/19 Joelle Wilkins NP [address] [address] [email or web address] Nurse Practitioner Medical Oncology 11/12/20 Kathia Quesada PA-C [address] [place] [email or web address] Physician Equipment Processor Hematology 02/14/21 Titus Arias DO [address] [place] [address] [email or web address] Primary Oncologist Hematology and Oncology 06/02/22 Jaylyn Chavira CNP [address] [place] [address] 7 [place] [address] [email or web address] Insurance Assigned Provider 10/02/24 documented as of this encounter Additional Source Comments The information contained in this document represents components of the legal health record. It is not the complete legal health record.[facility]
--- OUTSIDE RECORDS SUMMARY | 2025-04-26 17:55 | XMS_ITS | Encounter Summary ---
Author Organization [facility] Address [address] [facility] [address] [place] [address] Phone Care Team Providers Care Investor Name Role Phone Noelle Alvarado BEADING SAWYER Unavailable [phone] Joelle Wilkins EDGE BLACKER Unavailable [phone] Kathia Quesada PA-C Unavailable [phone] Titus Arias DO Unavailable [phone] Jaylyn Chavira CNP Primary Care Provider Kem Amaya DO Unavailable Jaylyn Chavira BEADING SAWYER Unavailable Reason for Referral * MRI/CAT Scan - Closed Specialty Diagnoses / Procedures Referred By Contchey t Referred To Contact Radiology Diagnoses Ataxic gait Procedures MRI Brain Go James MD [address] [place] [address], [address] [address] Phone: tel: fax: [email or web address] Referral ID Status Reason Start Date Expiration Date Visits Re quested Visits Authorized [id number] Closed 07/05/2024 07/05/2025 1 1 * Hospital - Outpatient - Closed Specialty Diagnoses / Procedures Referred By Contac t Referred To Contact Radiology Diagnoses TIA (transient ischemic attack) Procedures US Carotid Duplex Complete (Bilateral) Go James MD [address] [place] [address] [address] [place] [address] Phone: tel: fax: mailto:[email or web address] Referral ID Status Reason Start Date Expiration Date Visits Re quested Visits Authorized [id number] Closed 07/05/2024 07/05/2025 1 1 Encounter Details Date Type Department Care Team (Latest Contact Info) Description 07/05/2024 Transcribe Orders Virtual Department [address] [place] [address] Go James MD [address] [place] [address], [address] [place] [phone] [email or web address] TIA (transient ischemic attack) (Primary Dx); Ataxic gait Social History Tobacco Use Types Packs/Day Years [...] st Contact Info) Description 10/03/2024 Procedure Pass [address] [address] 09/11/2025 12:30 PM EDT Office Visit [facility] [address] [place] [address] Jaylyn Chavira, BEADING SAWYER 234 [facility], [facility] 7 [place] [address] 09/15/2025 10:00 AM EDT Office Visit [facility] at [address] [address] Titus Arias DO [address] [place] [address] [email or web address] 09/29/2025 8:30 AM EDT Appointment [address] [address] Jaylyn Chavira, BEADING SAWYER 234 [facility], [facility] 7 [place] [address] documented as of this encounter Results * US Carotid Duplex Complete (Bilateral) (08/05/2024 4:05 PM EST) Anatomical Region Laterality Modality Heart, Thoracic Vasculature, Neck Ultrasound 08/05/2024 4:35 PM EST Narrative 08/06/2024 3:59 AM EST US CAROTID DUPLEX COMPLETE (BILATERAL) Referring clinician's provided indication for this examination in Epic: Outside Radiology Order; Stroke / TIA TECHNIQUE: A duplex ultrasound evaluation of the common carotid, internal carotid, external carotid, vertebral, and subclavian arteries was performed using mar scale, color duplex and spectral Doppler analysis. COMPARISON: No previous relevant examinations. FINDINGS: Exam Quality: Technically adequate exam demonstrates: RIGHT Common Carotid Artery (cm/s): Proximal Systolic: 99 Proximal Diastolic: 20 Mid Systolic: 101 Mid Diastolic: 25.5 Distal Systolic: 103 Distal Diastolic: 24 Internal Carotid Artery (cm/s): Proximal Systolic: 106 Proximal Diastolic: 33.5 Mid Systolic: 102 Mid Diastolic: 38 Distal Systolic: 106 Distal Diastolic: 36 External Carotid Artery (cm/s): Systolic: 105 Diastolic: 14 Vertebral Artery (cm/s): Systolic: 53 Diastolic: 16 Subclavian Artery (cm/s): Systolic: 125 Diastolic: 0 ICA/CCA Ratio: 1.03 ICA Stenosis: Normal ICA Plaque: None Visualized LEFT Common Carotid Artery (cm/s): Proximal Systolic: 116 Proximal Diastolic: 32 Mid Systolic: 109 Mid Diastolic: 28.7 Distal Systolic: 106 Distal Diastolic: 31 Internal Carotid Artery (cm/s): Proximal Systolic: 88.2 Proximal Diastolic: 29.8 Mid Systolic: 98 Mid Diastolic: 37 Distal Systolic: 101 Distal Diastolic: 36 External Carotid Artery (cm/s): Systolic: 104 Diastolic: 13 Vertebral Artery (cm/s): Systolic: 37 Diastolic: 8 Subclavian Artery(cm/s): Systolic: 150 Diastolic: 0 ICA/CCA Ratio: 0.95 ICA Stenosis: Normal ICA Plaque: None Visualized Abbreviations: CCA = Common Carotid Artery. ICA = Internal Carotid Artery. ECA = External Carotid Artery. Vert = Vertebral Artery. ICA/CCA Ratio = maximal ICA PSV divided by the distal CCA PSV. DIRECT TEST FINDINGS: Right: Doppler flow velocities and waveform contours are within normal limits throughout the internal carotid artery, no plaque is visualized. No plaque is visualized in the common carotid artery. Unremarkable external carotid artery. Anterograde flow is noted in the vertebral artery. The subclavian artery is patent. Left: Doppler flow velocities and waveform contours are within normal limits throughout the internal carotid artery, no plaque is visualized. No plaque is visualized in the common carotid artery. Unremarkable external carotid artery. Anterograde flow is noted in the vertebral artery. The subclavian artery is patent. IMPRESSIONS: 1. No stenosis noted in the right internal carotid artery. 2. No stenosis noted in the left internal carotid artery. 3. No stenosis is noted in the common carotid arteries bilaterally. 4. Unremarkable external carotid arteries bilaterally. 5. Antegrade flow in the bilateral cervical vertebral arteries. 6. Normal examination of the bilateral subclavian arteries. STENOSIS: Internal carotid artery stenosis by duplex ultrasonography has been validated by comparing findings with angiographic stenosis. NASCET methods were used, where the most severe stenosis represents the numerator, and the normal internal carotid artery diameter distal to the stenosis where the lakhani are parallel represents the denominator. Procedure Note Pascual James MD - 08/06/2024 US CAROTID DUPLEX COMPLETE (BILATERAL) Referring clinician's provided indication for this examination in Epic:Outside Radiology Order; Stroke / TIA TECHNIQUE: A duplex ultrasound evaluation of the common carotid, internalcarotid, external carotid, vertebral, and subclavian arteries wasperformed using mar scale, color duplex and spectral Doppler analysis. COMPARISON: No previous relevant examinations. FINDINGS: Exam Quality: Technically adequate exam demonstrates: RIGHT Common Carotid Artery (cm/s): Proximal Systolic: 99 Proximal Diastolic: 20 Mid Systolic: 101 Mid Diastolic: 25.5 Distal Systolic: 103 Distal Diastolic: 24 Internal Carotid Artery (cm/s): Proximal Systolic: 106 Proximal Diastolic: 33.5 Mid Systolic: 102 Mid Diastolic: 38 Distal Systolic: 106 Distal Diastolic: 36 External Carotid Artery (cm/s): Systolic: 105 Diastolic: 14 Vertebral Artery (cm/s): Systolic: 53 Diastolic: 16 Subclavian Artery (cm/s): Systolic: 125 Diastolic: 0 ICA/CCA Ratio: 1.03 ICA Stenosis: Normal ICA Plaque: None Visualized LEFT Common Carotid Artery (cm/s): Proximal Systolic: 116 Proximal Diastolic: 32 Mid Systolic: 109 Mid Diastolic: 28.7 Distal Systolic: 106 Distal Diastolic: 31 Internal Carotid Artery (cm/s): Proximal Systolic: 88.2 Proximal Diastolic: 29.8 Mid Systolic: 98 Mid Diastolic: 37 Distal Systolic: 101 Distal Diastolic: 36 External Carotid Artery (cm/s): Systolic: 104 Diastolic: 13 Vertebral Artery (cm/s): Systolic: 37 Diastolic: 8 Subclavian Artery(cm/s): Systolic: 150 Diastolic: 0 ICA/CCA Ratio: 0.95 ICA Stenosis: Normal ICA Plaque: None Visualized Abbreviations: CCA = Common Carotid Artery. ICA = Internal Carotid Artery. ECA =External Carotid Artery. Vert = Vertebral Artery. ICA/CCA Ratio = maximalICA PSV divided by the distal CCA PSV. DIRECT TEST FINDINGS: Right: Doppler flow velocities and waveform contours are within normallimits throughout the internal carotid artery, no plaque is visualized. [place] is visualized in the common carotid artery. Unremarkable externalcarotid artery. Anterograde flow is noted in the vertebral artery. Thesubclavian artery is patent. Left: Doppler flow velocities and waveform contours are within normallimits throughout the internal carotid artery, no plaque is visualized. [place] is visualized in the common carotid artery. Unremarkable externalcarotid artery. Anterograde flow is noted in the vertebral artery. Thesubclavian artery is patent. IMPRESSIONS: 1. No stenosis noted in the right internal carotid artery. 2. No stenosis noted in the left internal carotid artery. 3. No stenosis is noted in the common carotid arteries bilaterally. 4. Unremarkable external carotid arteries bilaterally. 5. Antegrade flow in the bilateral cervical vertebral arteries. 6. Normal examination of the bilateral subclavian arteries. STENOSIS: Internal carotid artery stenosis by duplex ultrasonography hasbeen validated by comparing findings with angiographic stenosis. NASCETmethods were used, where the most severe stenosis represents thenumerator, and the normal internal carotid artery diameter distal to thestenosis where the lakhani are parallel represents the denominator. us Go James MD [facility] NEUROVASCULAR Final Re sult * MRI BRAIN WITHOUT CONTRAST (08/05/2024 3:23 PM EST) Anatomical Region Laterality Modality Head Magnetic Resonan ce 08/08/2024 11:0 8 AM EST Impressions 08/08/2024 11:15 AM EST 1. No acute infarct, space-occupying lesion, or intracranial hemorrhage. 2. Few scattered foci of white matter signal abnormality are a non-specific finding but may represent the sequela of chronic microangiopathy. Narrative 08/08/2024 11:15 AM EST MRI BRAIN WITHOUT CONTRAST Referring clinician's provided indication for this examination in [facility]: Outside Radiology Order; ATAXIA TECHNIQUE: MRI BRAIN WITHOUT CONTRAST Multi-sequence, multi-planar MRI of the brain was performed without intravenous contrast. COMPARISON: None. FINDINGS: MRI BRAIN: Brain Parenchyma: There is no mass-effect, midline shift, or space-occupying lesion. There is no decreased diffusion to indicate an acute infarct. There are few scattered foci of T2/FLAIR hyperintensity in the subcortical and periventricular white matter, a non-specific finding but likely reflecting the sequela of chronic small vessel disease. Ventricular System and Extra-Axial Spaces: The ventricles, sulci and cisterns are age-appropriate. Extracranial Structures: The visualized paranasal sinuses appear clear. The mastoid air cells appear clear. Procedure Note Steve Moss MD - 08/08/2024 MRI BRAIN WITHOUT CONTRAST Referring clinician's provided indication for this examination in Epic:Outside Radiology Order; ATAXIA TECHNIQUE: MRI BRAIN WITHOUT CONTRAST Multi-sequence, multi-planar MRI of the brain was performed withoutintravenous contrast. COMPARISON: None. FINDINGS: MRI BRAIN: Brain Parenchyma: There is no mass-effect, midline shift, orspace-occupying lesion. There is no decreased diffusion to indicate anacute infarct. There are few scattered foci of T2/FLAIR hyperintensity inthe subcortical and periventricular white matter, a non-specific findingbut likely reflecting the sequela of chronic small vessel disease. Ventricular System and Extra-Axial Spaces: The ventricles, sulci andcisterns are age-appropriate. Extracranial Structures: The visualized paranasal sinuses appear clear.The mastoid air cells appear clear. IMPRESSION: 1. No acute infarct, space-occupying lesion, or intracranialhemorrhage. 2. Few scattered foci of white matter signal abnormality are anon-specific finding but may represent the sequela of chronicmicroangiopathy. Go James MD [facility] [place] HEAD/NECK Final Resul t documented in this encounter Visit Diagnoses Diagnosis TIA (transient ischemic attack)- Primary Unspecified transient cerebral ischemia Ataxic gait Abnormality of gait Ataxic gait Abnormality of gait TIA (transient ischemic attack) Unspecified transient cerebral ischemia documented in this encounter Additional Health Concerns Infection Onset Date Last Indicated Resolved Time CoV-Risk 10/14/2024 10/14/2024 10/25/2024 1:23 AM EDT Assessment Noted Time PHQ-2 Depression Total Score: 1 07/09/19 3:59 PM EST documented as of this encounter Care Teams Investor Relationship Specialty Start Date End Date Jaylyn Chavira CNP [address] [place] [address], [facility] 7 [place] [address] [email or web address] PCP - General Nurse Practitioner 07/09/23 Noelle Alvarado CNP [address] [facility], 2nd [place] [address] [email or web address] Family Medicine 01/10/19 Joelle Wilkins NP [address] [place] [address] [email or web address] Nurse Practitioner Medical Oncology 11/12/20 Kathia Quesada PA-C [address] [place] [address] [email or web address] Physician Manager Privacy Hematology 02/14/21 Titus Arias DO [address] [place] [address] [email or web address] Primary Oncologist Hematology and Oncology 06/02/22 Kem Amaya DO 234 [facility], [facility] 7 [place] [address] [email or web address] Insurance Assigned Provider 10/03/23 10/02/24 Jaylyn Chavira CNP [address] [place] [address], [facility] 7 [place] [address] [email or web address] Insurance Assigned Provider 10/02/24 documented as of this encounter Additional Source Comments The information contained in this document represents components of the legal health record. It is not the complete legal health record.[facility]
--- OUTSIDE RECORDS SUMMARY | 2025-04-26 17:55 | XMS_ITS | Encounter Summary ---
Author Organization [facility] Address [address] [employer] [facility] [address] [place] [address] Phone Care Team Providers Care Manager Embalmer Funeral Director Name Role Phone Noelle Alvarado CAFE ASSOCIATE Unavailable Joelle Wilkins GROCERY WORKER Unavailable [phone] Kathia Quesada PA-C Unavailable Titus Arias DO Unavailable Jaylyn Chavira CAFE ASSOCIATE Primary Care Provider Jaylyn Chavira CAFE ASSOCIATE Unavailable Reason for Visit * Reason Onset Date Comments Triage 12/28/2024 Fall- Red Encounter Details Date Type Department Care Team (Late st Contact Info) Description 12/28/2024 Telephone [facility] [address] [place], [place] [id number] Jaylyn Chavira CNP 234 [facility], [address] [place] [address] [email or web address] Triage ( ) Social History Tobacco Use Types Packs/Day Years [...] 5:12 PM EDT Esther Caicedo RN * [place] Suicide Severity Rating Scale (Screener/Recent Self-Report) Question Answer Date of Assessment Author 1. Wish to be (Past 1 Month) No 025 5:12 PM EDT Esther Pena RN 2. Non-Specific Active Suici arlette Thoughts (Past 1 Month) No 12/28/2024 5:12 PM EDT Vangie Pena RN 6. Suicidal Behavior (Lifetime) No 5:12 PM EDT Esther Pena RN documented as of this encounter Progress Notes * Maggie Chavira RN - 12/28/2024 1:52 PM EDT Spoke with patient. States she fell and hit her head on the top of her head. States she is having pressure around temples and eyes. Advised that she goes to the ED. States she doesn't have a ride until her son gets out of work at 4PM. Offered to call an ambulance but patient declined. States she will go to [facility] ED when her son gets off work. Advised that if symptoms get worse or headache or dizziness or other neurological symptoms develop that she should call 911. Patient verbalized understanding. documented in this encounter Plan of Treatment Upcoming Encounters Date Type Department Care Team (Late st Contact Info) Description 10/03/2024 Procedure Pass [address] [address] 09/11/2025 12:30 PM EDT Office Visit [address] [address] Jaylyn Chavira CNP 234 [facility] 7 [place] [address] [email or web address] 09/15/2025 10:00 AM EDT Office Visit [facility] at [address] [address] Titus Arias DO 30 [place] [address] [email or web address] 09/29/2025 8:30 AM EDT Appointment [address] [address] Jyalyn Chavira CNP 234 [facility] 7 [place] [address] documented as of this encounter Visit Diagnoses Not on filedocumented in this encounter Additional Health Concerns Assessment Noted Time PHQ-2 Depression Total Score: 1 07/09/19 24 3:59 PM EST documented as of this encounter Care Teams Manager Embalmer Funeral Director Relationship Specialty Start Date End Date Jaylyn Chavira CNP 234 [facility], [address] [place] [address] [email or web address] PCP - General Nurse Practitioner 07/09/23 Noelle Alvarado CNP 15 [facility], 2nd [place] [address] [email or web address] Family Medicine 01/10/19 Joelle Wilkins, GROCERY WORKER [address] [place] [address] [email or web address] Nurse Practitioner Medical Oncology 11/12/20 Kathia Quesada PA-C 30 [place] [address] [email or web address] Physician Senior Qc Technician Hematology 02/14/21 Titus Arias DO 30 [place] [address] [email or web address] Primary Oncologist Hematology and Oncology 06/02/22 Jaylyn Chavira CNP 234 [facility], [facility] 7 [place] [address] [email or web address] Insurance Assigned Provider 10/02/24 documented as of this encounter Additional Source Comments The information contained in this document represents components of the legal health record. It is not the complete legal health record.[facility]
--- OUTSIDE RECORDS SUMMARY | 2025-04-26 17:55 | XMS_ITS | Encounter Summary ---
Author Organization [facility] Address [address] [place] [address] Phone Care Team Providers Care Stencil Typist Name Role Phone Titus Arias DO Unavailable [phone] Natasha Bah MD Unavailable [phone] Noelle Alvarado TRACTOR ENGINE MECHANIC Primary Care Provider [phone] Noelle Alvarado TRACTOR ENGINE MECHANIC Unavailable JennyNoelle wayne TRACTOR ENGINE MECHANIC Primary Care Provider [phone] Jose Cifuentes MD Primary Care Provider [phone] Noelle Alvarado TRACTOR ENGINE MECHANIC Primary Care Provider [phone] Jose Cifuentes MD Unavailable Jose Cifuentes MD Primary Care Provider [phone] Noelle lAvarado CNP Primary Care Provider Jose Cifuentes MD Primary Care Provider [phone] Noelle Alvarado TRACTOR ENGINE MECHANIC Primary Care Provider Onur Olivarez OT Unavailable [phone] Onur Olivarez OT Unavailable [phone] Joelle Wilkins SEED CONE PICKER Unavailable [phone] Jose Cifuentes MD Primary Care Provider [phone] Noelle Alvarado TRACTOR ENGINE MECHANIC Primary Care Provider [phone] Kathia Quesada PA-C Unavailable Jose Cifuentes MD Unavailable Sahd, Kem Kidd DO Unavailable Paulette Fuchs DO Unavailable Titus Arias DO Unavailable Soha Louie MD Unavailable Sahd, Kem Kidd DO Unavailable Clemente Brown MD Unavailable Jaylyn Chavira TRACTOR ENGINE MECHANIC Primary Care Provider Sahd, Kem Kidd DO Unavailable Cait Jaylyn TRACTOR ENGINE MECHANIC Unavailable Encounter Details Date Type Department Care Team (Late st Contact Info) Description 03/26/2018 Ancillary Orders [facility] 234 [place] [address] Noelle Alvarado, TRACTOR ENGINE MECHANIC 15 [facility], 2nd [place] [address] [email or web address] Breast screening Social History Tobacco Use Types [...] st Contact Info) Description 10/03/2024 Procedure Pass [facility] 30 [place] [address] 09/11/2025 12:30 PM EDT Office Visit [facility] 234 [place] [address] Jaylyn Chavira, TRACTOR ENGINE MECHANIC 234 [facility], [address] [place] [address] 09/15/2025 10:00 AM EDT Office Visit [facility] at [facility] 30 [place] [address] Titus Arias DO 30 [place] [address] [email or web address] 09/29/2025 8:30 AM EDT Appointment [facility]- [address] [address] Jaylyn Chavira, TRACTOR ENGINE MECHANIC 234 [facility], [facility] 7 [place] [address] [email or web address] documented as of this encounter Results * BI MAMMOGRAM SCREENING WITH TOMOSYNTHESIS WITH CAD (BILATERAL) (06/24/2018 9:50 AM EST) Anatomical Region Laterality Modality Breast Left, Breast Right, Breast Bilateral Bila teral Mammography 06/24/2018 12:4 2 PM EST Impressions 06/24/2018 12:44 PM EST No mammographic evidence of malignancy. RECOMMENDED FOLLOWUP: Routine screening mammography is recommended, as clinically appropriate. The results will be sent to the patient. BI-RADS CATEGORY: 1 - Negative. BREAST DENSITY: There are scattered fibroglandular densities. POS - CDHMAM2 Narrative 06/24/2018 12:44 PM EST BI MAMMOGRAM SCREENING WITH TOMOSYNTHESIS WITH CAD (BILATERAL) HISTORY: Screening. COMPARISON: Prior studies dating back to 05/03/2012, most recently 06/23/2017. TECHNIQUE: Digital breast tomosynthesis was performed in CC and MLO projections. Reconstructed 2-D C-views generated from the tomosynthesis images. Images interpreted in conjunction with R-2 Image Parks Recreation Coordinator computer-aided detection (CAD). FINDINGS: BREAST DENSITY: There are scattered fibroglandular densities. There are no suspicious masses, suspicious areas of architectural distortion or suspicious clusters of microcalcifications. The glandular pattern is stable. Stable intramammary lymph node in the upper outer posterior right breast. Procedure Note Destinee Sullivan MD - 06/24/2018 BI MAMMOGRAM SCREENING WITH TOMOSYNTHESIS WITH CAD (BILATERAL) HISTORY: Screening. COMPARISON: Prior studies dating back to 05/03/2012, most xdiwcyzl59/26/2017. TECHNIQUE: Digital breast tomosynthesis was performed in CC and MLOprojections. Reconstructed 2-D C-views generated from the tomosynthesisimages. Images interpreted in conjunction with R-2 Image Checkercomputer-aided detection (CAD). FINDINGS: BREAST DENSITY: There are scattered fibroglandular densities. There are no suspicious masses, suspicious areas of architecturaldistortion or suspicious clusters of microcalcifications. The glandular pattern is stable. Stable intramammary lymph node in theupper outer posterior right breast. IMPRESSION: No mammographic evidence of malignancy. RECOMMENDED FOLLOWUP: Routine screening mammography is recommended, asclinically appropriate. The results will be sent to the patient. BI-RADS CATEGORY: 1 - Negative. BREAST DENSITY: There are scattered fibroglandular densities. POS - CDHMAM2 Noelle Alvarado [facility] IMG MG EXAMS Final Resu lt documented [...] documented as of this encounter Care Teams Stencil Typist Relationship Specialty Start Date End Date Noelle Alvarado CNP [address] [address] PCP - General Family Medicine 03/23/18 01/09/19 Noelle Alvarado CNP [address] [address] PCP - General Family Medicine 01/10/19 11/15/19 Jose Cifuentes MD [address] [facility] [address] [place] [phone] [email or web address] PCP - General Family Medicine 11/16/19 12/26/19 Noelle Alvarado CNP [address] [address] PCP - General Family Medicine 12/27/19 05/07/20 Jose Cifuentes MD [address] [facility] [address] [place] [phone] PCP - General Family Medicine 05/08/20 05/14/20 Noelle Alvarado CNP [address] [address] [email or web address] PCP - General Family Medicine 05/15/20 07/04/20 Jose Cifuentes MD [address] [place] [address] [address] [place] [phone] [email or web address] PCP - General Family Medicine 07/05/20 07/10/20 JennyNoelle CNP [address] [place] [address] [email or web address] PCP - General Family Medicine 07/11/20 11/12/20 Jose Cifuentes MD [address] [place] [address] [address] [place] [phone] [email or web address] PCP - General Family Medicine 11/13/20 11/20/20 JennyNoelle CNP [address] [place] [address] [email or web address] PCP - General Family Medicine 11/21/20 07/08/23 Jaylyn Chavira CNP [address] [place] [address], [address] [place] [address] [email or web address] PCP - General Nurse Practitioner 07/09/23 Titus Arias DO 30 [place] [address] [email or web address] Primary Oncologist Hematology and Oncology 08/28/17 Natasha Bah MD [address] [place] [address], [address] [place] [address] [email or web address] Insurance Assigned Provider 09/26/17 02/02/20 Noelle Alvarado CNP [address] [place] [address], [address] [place] [address] [email or web address] Family Medicine 01/10/19 Jose Cifuentes MD [address] [place] [address] [address] [place] [phone] [email or web address] Insurance Assigned Provider 02/02/20 07/10/20 Onur Olivarez, OT [address] [place] [address] [email or web address] Transitions Blow Mold TechnicianCan Filling Room Sweeper Therapy 10/24/20 10/24/20 Onur Olivarez, OT [address] [place] [address] [email or web address] Transitions Blow Mold TechnicianCan Filling Room Sweeper Therapy 11/07/20 11/09/20 Joelle Wilkins NP [address] [place] [address] [email or web address] Nurse Practitioner Medical Oncology 11/12/20 Kathia Quesada PA-C [address] [place] [address] @[email or web address] Physician License Examiner Hematology 02/14/21 Jose Cifuentes MD [address] [place] [address] [address] [place] [phone] [email or web address] Insurance Assigned Provider 02/02/20 01/04/22 Kem Amaya, DO [address] [place] [address] 7 [place] [address] [email or web address] Insurance Assigned Provider 01/04/22 03/08/22 Paulette Fuchs DO [address] [place] [address] 7 [place] [address] [email or web address] Insurance Assigned Provider 03/08/22 07/05/22 Titus Arias DO [address] [place] [address] [email or web address] [email or web address] Primary Oncologist Hematology and Oncology 06/02/22 Soha Louie MD [address] [place] [address], [facility] 7 [place] [address] [email or web address] Insurance Assigned Provider 07/05/22 11/01/22 Kem Amaya, DO [address] [place] [address], [address] [place] [address] [email or web address] Insurance Assigned Provider 11/01/22 05/09/23 Clemente Brown MD [address] [place] [address], [address] [place] [address] [email or web address] Insurance Assigned Provider 05/09/23 10/03/23 Kem Amaya, DO [address] [place] [address], [facility] 7 [place] [address] [email or web address] Insurance Assigned Provider 10/03/23 10/02/24 Jaylyn Chavira CNP [address] [place] [address] 7 [place] [address] [email or web address] Insurance Assigned Provider 10/02/24 documented as of this encounter Additional Source Comments The information contained in this document represents components of the legal health record. It is not the complete legal health record.[facility]
--- OUTSIDE RECORDS SUMMARY | 2025-04-26 17:55 | XMS_ITS | Encounter Summary ---
Author Organization [facility] Address [address] [place] [address] Phone Care Team Providers Care Senior Marketing Analyst Name Role Phone Hugo Titus Ha DO Unavailable Noelle Alvarado PLASTERER HELPER Unavailable Joelle Wilkins BAND SALVAGER Unavailable [phone] Noelle Alvarado PLASTERER HELPER Primary Care Provider [phone] Kathia Quesada PA-C Unavailable Jose Cifuentes MD Unavailable SahKem carvalho DO Unavailable Paulette Fuchs DO Unavailable Hugo Titus Ha DO Unavailable Soha Louie MD Unavailable SahKem carvalho DO Unavailable Clemente Brown MD Unavailable Jaylyn Chavira CNP Primary Care Provider Kem Amaya DO Unavailable Jaylyn Chavira CNP Unavailable Encounter Details Date Type Department Care Team (Latest Contact Info) Description 11/21/2020 Transcribe Orders Virtual Department 30 [place] [address] Wes Meza, [place] Low back pain, unspecified back pain laterality, unspecified chronicity, unspecified whether sciatica present (Primary Dx); Chronic right SI joint pain Social History Tobacco Use Types Packs/Day Years [...] st Contact Info) Description 10/03/2024 Procedure Pass [address] [address] 09/11/2025 12:30 PM EDT Office Visit [facility] Medicine [address] [place] [address] Jaylyn Chavira, PLASTERER HELPER [address] [address] 09/15/2025 10:00 AM EDT Office Visit [facility] at [address] [address] Titus Arias, 30 [place] [address] [email or web address] 09/29/2025 8:30 AM EDT Appointment [address] [address] Jaylyn Chavira, PLASTERER HELPER [address] [address] documented as of this encounter Visit Diagnoses Diagnosis Low back pain, unspecified back pain laterality, unspecified chronicity, unspecified whether sciatica present- Primary Chronic right SI joint pain Disorders of sacrum documented in this encounter Additional Health Concerns Infection Onset Date Last Indicated Resolved Time CoV-Risk 11/05/2021 11/05/2021 11/16/2021 1:22 AM EDT CoV-Risk 06/04/2022 06/04/2022 06/15/2022 1:22 AM EST CoV-Risk 10/14/2024 10/14/2024 10/25/2024 1:23 AM EDT Assessment Noted Time PHQ-2 Depression Total Score: 0 12/30/19 1:35 PM EDT documented as of this encounter Care Teams Senior Marketing Analyst Relationship Specialty Start Date End Date Noelle Alvarado CNP [address] [address] [email or web address] PCP - General Family Medicine 11/21/20 07/08/23 Jaylyn Chavira CNP [address] [place] [address] [email or web address] PCP - General Nurse Practitioner 07/09/23 Titus Arias DO 30 [place] [address] [email or web address] Primary Oncologist Hematology and Oncology 08/28/17 Noelle Alvarado CNP [address] [address] [email or web address] Family Medicine 01/10/19 Joelle Wilkins BAND SALVAGER [address] [address] [email or web address] Nurse Practitioner Medical Oncology 11/12/20 Kathia Quesada PA-C 30 [place] [address] [email or web address] Physician Xerox Machine Mechanic Hematology 02/14/21 Jose Cifuentes MD [address] [place] [address] [address] [place] [phone] [email or web address] Insurance Assigned Provider 02/02/20 01/04/22 Kem Amaya DO [address] [place] [address] [place] [address] [email or web address] Insurance Assigned Provider 01/04/22 03/08/22 Paulette Fuchs DO [address] [place] [address] [place] [address] [email or web address] Insurance Assigned Provider 03/08/22 07/05/22 Titus Arias DO 30 [place] [address] [email or web address] Primary Oncologist Hematology and Oncology 06/02/22 Soha Louie MD [address] [place] [address] [place] [address] Insurance Assigned Provider 07/05/22 11/01/22 Kem Amaya DO [address] [place] [address] [place] [address] [email or web address] Insurance Assigned Provider 11/01/22 05/09/23 Clemente Brown MD [address] [place] [address] [place] [address] [email or web address] Insurance Assigned Provider 05/09/23 10/03/23 Kem Amaya DO [address] [place] [address], [address] [place] [address] [email or web address] Insurance Assigned Provider 10/03/23 10/02/24 Jaylyn Chavira CNP [address] [place] [address], [address] [place] [address] [email or web address] Insurance Assigned Provider 10/02/24 documented as of this encounter Additional Source Comments The information contained in this document represents components of the legal health record. It is not the complete legal health record.[facility]
== END 2025-04-26 13:57 | disposition home or self-care (01) ==
LOC: HO.BBR 13:56
PROVIDERS: PCP Nurse Practitioner Family; Visit Provider Physician Assistant Medical
DX: Z13.89 Encounter for screening for other disorder (principal)